=== PATIENT | female | born 1935 | race Caucasian/White ===

== ENCOUNTER 2016-05-02 07:19 | Emergency (ER) | payer MEDICARE, OTHER ==
[~2016-05-02] VITALS: Ht 160 cm; Wt 88.5 kg
[~2016-05-02 07:19] MED LIST: B COMPLEX; BENZ100C8 PO; CALC-793 PO; CALC-80; CALCIUM OTC; CARV3.122 PO; CARV6.252 PO; CIPR500T78 PO; CPR500T PO; CTLP20T PO; Calcium PO; DILT120C10 PO; DOCU100T7 PO; EST.625T PO; FERR-57 PO; FURO40TA4; FURO80TA PO; GFN600TCR PO; GLUCOSAMINE OTC PO; KCL20TCR PO; MECL12.579; MELA1TAB11 PO; MELO-170 PO; MESA800T PO; METR500T PO; MSL400TEC; NF-MAG64T PO; NIA500ERT PO; NIACIN; OMG1KC PO; OXYC10TA8 PO; PRD10T PO; PRD20T; PRESERVISION EYE VIT PO; RIVA20TA2 PO; SIMV20TA3; SIMV20TA3 PO; SLOMAG; SMV10T PO; VITA1CAP59 PO; WARF4TAB; [UNRECOGNIZED DRUG - OTHER]
--- OUTSIDE RECORDS SUMMARY | 2016-05-02 07:24 | XMS REPORT | Continuity of Care Document ---
Author Author [facility] Organization [facility] Address Unknown Phone Unavailable Care Team Providers Care Director Payer Name Role Phone Eez Siddiquien PCP [phone] Source Comments Some departments are not documenting in the electronic medical record. If you do not see the information that you expected, contact Release of Information in the Health Information Management department at [phone] for further assistance in locating additional records.[facility] Active Allergies and Adverse Reactions No Known Allergies Current Medications Prescription Sig. Disp. Refills Start End Date Status Date mesalamine(+) (ASACOL HD) Take 800 mg by mouth Active 800 mg tablet three times daily. citalopram (CELEXA) 20 mg Take 20 mg by mouth at Active tablet bedtime daily. estrogens, conjugated Take 0.625 mg by mouth Active (PREMARIN) 0.625 mg daily. tablet lutein 20 mg Tab Take by mouth. Active melatonin 3 mg Tab Take 3 mg by mouth at Active bedtime daily. vitamins, multiple cap Take 1 Cap by mouth Active daily. aspirin EC 81 mg tablet Take 81 mg by mouth three Active times daily. simvastatin (ZOCOR) 20 mg Take 1 Tab by mouth daily 90 Tab 01/03/20 Active tablet with dinner. 14 oxyCODONE SR (OXYCONTIN) Take 10 mg by mouth every Active 10 mg tablet 12 hours Magnesium 250 mg tab Take by mouth daily. Active guaiFENesin LA (MUCINEX) Take 600 mg by mouth at Active 600 mg tablet bedtime daily. vit Take 1 Tab by mouth twice Active C,K-Kk-bdvko-lutein-zeaxa daily. n (PRESERVISION AREDS 2) [phone] kw-zvia-tu-mg cap fish oil /omega-3 fatty Take 1 Cap by mouth twice Active acids (SEA-OMEGA) daily. 340/1000 mg capsule glucosamine(+) 500 mg tab Take 500 mg by mouth Active daily with breakfast. oxyCODONE (ROXICODONE) 5 Take 1 Tab by mouth every 30 Tab 0 01/20/20 Active mg tablet 4 hours as needed 14 docusate (COLACE) 100 mg Take 1 Cap by mouth twice 180 Cap 3 01/20/20 Active capsule daily. 14 spironolactone TAKE 1 TABLET BY MOUTH 90 Tab 0 09/07/19 Active (ALDACTONE) 25 mg tablet DAILY AFTER BREAKFAST 15 bisoprolol (ZEBETA) 5 mg TAKE 1 TABLET BY MOUTH 180 Tab 0 07/03/19 Active tablet EVERY 12 HOURS 16 Active Problems Problem Noted Date Thyroid goiter 01/18/2014 Multiple thyroid nodules 11/24/2013 SSS (sick sinus syndrome) ([facility]) 04/23/2013 Overview: 11/07/11 - PPM implant by Steven García at [facility] Cardiac pacemaker in situ 04/23/2013 Overview: 11/07/11 - MDT PPM Adapta SR ADSRO1; RV Lead 4076-58 Aortic regurgitation 04/18/2013 SDH (subdural hematoma) ([facility]) 01/10/2013 Adnexal mass 11/29/2012 Cardiomegaly 11/29/2012 Pacemaker 11/29/2012 Nocturnal hypoxia 11/29/2012 Chronic a-fib ([facility]) 11/29/2012 Ulcerative colitis ([facility]) 11/29/2012 Diverticulitis 11/29/2012 Macular degeneration 11/29/2012 Immunizations Name Dates Previously Given Next Due Flu Vaccine 01/19/2014 Quadrivalent=>3 Yo (Preservative Free) Flu Vaccine Trivalent=>3 01/13/2013 Yo (Preservative Free) Social History Tobacco Use Types Packs/Day Years Used Date Former Smoker Cigarettes 2 20 Quit: 04/06/1992 Smokeless Tobacco: Never Used Alcohol Use Drinks/Week oz/Week Comments No Last Filed Vital Signs Vital Sign Reading Time Taken Blood Pressure 128/82 01/27/2014 3:39 PM CDT Pulse 98 01/27/2014 3:39 PM CDT Temperature 36.3 C (97.3 F) 01/19/2014 11:47 AM CDT Respiratory Rate 16 01/02/2014 2:00 PM CDT Height 1.626 m (5' 4") 01/27/2014 3:39 PM CDT Weight 96.435 kg (212 lb 9.6 oz) 01/27/2014 3:39 PM CDT Body Mass Index 36.47 01/27/2014 3:39 PM CDT Oxygen Saturation 96% 01/19/2014 2:36 PM CDT Plan of Care Health Maintenance Due Date Last Done Comments Physical (Comprehensive) 1944 Exam Pertussis Vaccine 1948 Tetanus Vaccine 1954 Shingles Vaccine 1997 Osteoporosis Screening 2002 Prevnar/Pneumovax (#1) 2002 Influenza Vaccine 12/06/2015 01/19/2014, 01/13/2013 Results from Last 3 Months Not on file
[2016-05-02] MEDS ORDERED: fentaNYL INJECTION 100 MCG/2 ML AMP IVP STA (07:27)
--- NOTE | 2016-05-02 07:46 | ED Fall/Injury ---
General Chief Complaint: Trauma-Non Activation Stated Complaint: FALL Nursing Triage Note: PT TO [facility] WITH CC OF SAME LEVEL FALL THIS A.M. PT DENIES LOC, JUST TRIPPED AND FELL ON HER FACE, HAD A BLOODY NOSE ON EMS ARRIVAL, BLEEDING CONTROLLED ON ARRIVAL TO ER. PT STATES PAIN ALL OVER BUT THAT IS NORMAL, NO ABNORMAL PAIN. HX OF HEMORRAGIC STROKE SO FAMILY WANTED TO BE SURE PT WAS CHECKED OUT. BLOOD SUGAR WAS 120 BY EMS. Source: patient, EMS Exam Limitations: no limitations History of Present Illness Time seen by provider: 07:27 Initial Comments Here with report of fall this morning. Patient reports that she tripped over something. She is on oxygen and has quite a bit of tubing at the house per EMS. Patient fell and hit her for head and face on the ground. Denies other injury. She does have chronic all over body pain that she states is not worse and she is on pain meds for that. Patient did have a significant bloody nose earlier but has subsequently stopped. Denies nausea or vomiting. Denies loss of consciousness. Occurred: just prior to arrival, this morning Severity: moderate Injuries/Pain Location: head, face Loss of Consciousness: no loss of consciousness Associated Symptoms (Fall): No Abdominal Pain, No Chest Pain, No Confusion, No Muscle Spasms, No Nausea/Vomiting, No Neck Pain, No Slurred Speech, Other (back , hip and leg pain that are chronic and not new.) Allergies and Home Medications Allergies Coded Allergies: NKANo Known Allergies (Unverified Allergy, Mild, 05/29/09) Home Medications 1,000 MG PO BID (Reported) 1 TAB PO BID (Reported) Calcium/Vitamin D 1 Tab Tablet 600 MG PO BID (Reported) Carvedilol 3.125 Mg Tablet 1 EACH PO BID (Reported) Citalopram Hydrobromide 20 Mg Tablet 1 EACH PO DAILY (Reported) Ferrous Sulfate 325 Mg Tablet 325 MG PO BID (Reported) Magnesium Chloride 64 Mg Tablet.sa 64 MG PO DAILY (Reported) Meloxicam 7.5 Mg Tablet #30 1 EACH PO DAILY PRN PRN elbow swelling/pain Prescribed by: MINERVA OTOOLE on 05/05/14 2302 Mesalamine 800 Mg Tablet.dr 800 MG PO TID (Reported) [place] 3 Polyunsat Fatty Acids 1,000 Mg Cap 1,000 MG PO DAILY (Reported) Oxycodone Hcl 10 Mg Tab 10 MG PO BID (Reported) Potassium Chloride 20 Meq Tab 20 MEQ PO TID (Reported) Pyridoxine/Melatonin 1 Tab Tablet 3 MG PO HS (Reported) Simvastatin 20 Mg Tablet 20 MG PO HS (Reported) Constitutional: see HPINo chills, No fever Eyes: No Symptoms Reported Ears, Nose, Mouth, Throat: see HPIdenies ear pain, denies ear discharge, nose pain epistaxisdenies loose teeth, denies throat pain Respiratory: no symptoms reportedNo cough, No short of breath Cardiovascular: no symptoms reportedNo chest pain Gastrointestinal: No abdominal pain, No nausea, No vomiting Genitourinary: no symptoms reported Musculoskeletal: see HPI muscle pain muscle stiffness Skin: no symptoms reported Psychiatric/Neurological: Denies Anxiety, HeadacheDenies Weakness All Other Systems Reviewed Negative Unless Noted: Yes Past Wbkfbjq-Jwelnm-Zhmuhy Hx Patient Social History Alcohol Use: Denies Use Recreational Drug Use: No Smoking Status: Unknown if Ever Smoked Recent Foreign Travel: No Contact w/Someone Who Travel: No Recent Infectious Disease Expo: No Immunizations Up To Date Tetanus Booster (TDap): Unknown Date of Pneumonia Vaccine: May 07, 2009 Date of Influenza Vaccine: Jan 16, 2014 Seasonal Allergies Seasonal Allergies: Yes Surgeries HX Surgeries: Yes (BRAIN SURGERY,KNEE SURGERY, FOOT SURGERY ) Surgeries: Appendectomy, Hysterectomy, Neurological, Orthopedic, Pacemaker, Thyroidectomy Respiratory Hx Respiratory Disorders: Yes (HYPOXIA--WEARS O2 AT 2L/NC CONTINUOUSLY) Respiratory Disorders: Pneumonia Cardiovascular Hx Cardiac Disorders: Yes (PULMONARY HTN, PACEMAKER) Neurological Hx Neurological Disorders: Yes Neurological Disorders: Dementia Reproductive System Hx Reproductive Disorders: No DIRECT OF REAL ESTATE History: Hysterectomy Genitourinary Hx Genitourinary Disorders: No Gastrointestinal Hx Gastrointestinal Disorders: Yes Gastrointestinal Disorders: Colitis, Gastrointestinal Bleed, Diverticulosis Musculoskeletal Hx Musculoskeletal Disorders: Yes (CHRONIC NECK PAIN , SPINAL STENOSIS) Musculoskeletal Disorders: Arthritis, Chronic Back Pain Endocrine Hx Endocrine Disorders: No HEENT HX ENT Disorders: No Cancer Hx Cancer: No (BENIGN SKIN LESIONS) Psychosocial Hx Psychiatric Problems: No Integumentary HX Skin/Integumentary Disorder: Yes (BENIGN SKIN LESIONS) Blood Transfusions Hx Blood Disorders: No Reviewed Nursing Assessment Reviewed/Agree w Nursing PMH: Yes Family Medical History Significant Family History: No Pertinent Family Hx, Stroke Physical Exam Vital Signs Vital Sign - Last 12Hours 05/02/16 07:22 Temp 97.0 Pulse 87 Resp 16 B/P 130/71 Pulse Ox 98 O2 Delivery Room Air Capillary Refill : Less Than 3 Seconds General Appearance: WD/WN mild distress (all of her pain and headache) HEENT: PERRL/EOMI pharynx normal other (left eye with some discharge. Old blood within bilateral naris but no active bleeding. Swelling to the nose noted. Abrasions to the forehead, nose, face and chin.) Neck: non-tender full range of motion supple normal inspection Cardiovascular: regular rate, rhythm no murmur Respiratory: lungs clear normal breath sounds Gastrointestinal: non tender soft Back: normal inspection no CVA tenderness no vertebral tenderness Neurologic/Psychiatric: alert oriented x 3 Skin: normal color warm/dry [place] Coma Score Best Eye Response: (4) Open Spontaneously Best Verbal Response: (5) Oriented Best Motor Response: (6) Obeys Commands Laceration Repair : Suture Size: 4-0 Progress/Results/Core Measures Results/Orders Lab Results Laboratory Tests Test 05/02/16 07:50 Range/Units Alanine Aminotransferase (ALT/SGPT) 20 0-55 U/L Albumin 4.1 3.2-4.5 G/DL Alkaline Phosphatase 118 40-136 U/L Anion Gap 13 5-14 MMOL/L Aspartate Amino Transf (AST/SGOT) 47 H 5-34 U/L BUN/Creatinine Ratio 24 Basophils # (Auto) 0.0 0.0-0.1 10^3/uL Basophils (%) (Auto) 1 0-10 % Blood Urea Nitrogen 31 H 7-18 MG/DL Calcium Level 9.4 8.5-10.1 MG/DL Carbon Dioxide Level 25 21-32 MMOL/L Chloride Level 94 L 98-107 MMOL/L Creatinine 1.28 0.60-1.30 MG/DL Eosinophils # (Auto) 0.0 0.0-0.3 10^3/uL Eosinophils (%) (Auto) 0 0-10 % Estimat Glomerular Filtration Rate 40 Glucose Level 106 H 70-105 MG/DL Hematocrit 35 35-52 % Hemoglobin 11.6 11.5-16.0 G/DL Lymphocytes # (Auto) 0.8 L 1.0-4.0 X 10^3 Lymphocytes (%) (Auto) 15 12-44 % Mean Corpuscular Hemoglobin 32 25-34 PG Mean Corpuscular Hemoglobin Concent 33 32-36 G/DL Mean Corpuscular Volume 98 80-99 FL Mean Platelet Volume 11.6 H 7.4-10.4 FL Monocytes # (Auto) 0.7 0.0-1.0 X 10^3 Monocytes (%) (Auto) 15 H 0-12 % Neutrophils # (Auto) 3.4 1.8-7.8 X 10^3 Neutrophils (%) (Auto) 69 42-75 % Platelet Count 159 130-400 10^3/uL Potassium Level 4.6 3.6-5.0 MMOL/L Red Blood Count 3.58 L 4.35-5.85 10^6/uL Red Cell Distribution Width 12.9 10.0-14.5 % Sodium Level 132 L 135-145 MMOL/L Total Bilirubin 0.7 0.1-1.0 MG/DL Total Protein 7.6 6.4-8.2 G/DL White Blood Count 5.0 4.3-11.0 10^3/uL My Orders Orders-VERONICA SORIANO MD Ct Head/Face/Cervical Wo (05/02/16 07:27) Cbc With Automated Diff (05/02/16 07:27) Comprehensive Metabolic Panel (05/02/16 07:27) Fentanyl Injection (Sublimaze Injection (05/02/16 07:27) Saline Lock/Iv-Start (05/02/16 07:27) Ceftriaxone Injection (Rocephin Injectio (05/02/16 09:45) Tdap (Boostrix) Im (05/02/16 09:47) Vital Signs/I&O Vital Sign - Last 12Hours 05/02/16 07:22 Temp 97.0 Pulse 87 Resp 16 B/P 130/71 Pulse Ox 98 O2 Delivery Room Air Blood Pressure Mean: 90 Progress Note : Progress Note Seen and evaluated. CT head, face and neck ordered. Basic labs ordered. Fentanyl 75 g IV as patient has not had her 30 mg morphine sulfate ER this morning and she is in fair amount of pain. Monitor patient. 0933: CT results reviewed with patient and family. She's had multiple falls over the last 9 months and chronic subdural is probably from one of those falls although it does not appear to be new. We will update tetanus. I did discuss the nasal fracture maxillary sinus concerns. We'll give Rocephin 1 g IV here 1 and then continue outpatient antibiotics with amoxicillin. Patient family comfortable with plan. Discharged home with return precautions. Patient and family verbalize understanding instructions and agreement with plan. Diagnostic Imaging Diagonstic Imaging: CT Plain Films/CT/US/NM/MRI: facial bones, c-spine, head Comments [facility] [place], [place] NAME: ELSY ROSA [facility] REC#: [id number] PT STATUS: REG ER : 1935 PHYSICIAN: VERONICA SORIANO MD ADMIT DATE: 05/02/16/ER Draft Date of Exam:05/02/16 CT HEAD/FACE/CERVICAL WO PROCEDURE: CT head, face, and cervical spine without contrast. TECHNIQUE: Multiple contiguous axial images were obtained through the head, neck, and facial bones without the use of intravenous contrast. Sagittal and coronal reformations through the cervical spine and facial bones were also performed. INDICATION: Fall. Face injury. COMPARISON: CT head and cervical spine without contrast 09/24/2015. FINDINGS: CT HEAD: There is a new low-attenuation extra-axial fluid collection overlying the right frontal lobe and measuring up to 9 mm in maximum radial diameter. No other evidence of intracranial hemorrhage, mass effect or hydrocephalus. Postoperative findings of a left frontotemporal craniotomy and stable underlying encephalomalacia in the left temporal lobe. No CT evidence of acute infarction. Mildly displaced right nasal bone fracture. Osseous structures are otherwise intact. Moderate mucosal thickening in the ethmoid and maxillary sinuses. There is a small air-fluid level in the left maxillary sinus. CT CERVICAL SPINE: Grade 1 anterolisthesis of C6 on C7. Alignment is otherwise normal. Vertebral body heights are maintained. No fractures. Moderate degenerative endplate changes throughout the cervical spine. Diffuse moderate to advanced bilateral facet arthropathy. Spondylotic changes result in no high-grade spinal canal narrowing on this noncontrast exam. Scattered mild to moderate neural foraminal narrowing. Right thyroidectomy. Several low-attenuation nodules in the right thyroid measuring up to 1.8 cm. Mild arterial calcifications. IMPRESSION: 1. Chronic appearing subdural hematoma overlying the right frontal lobe measures up to 9 mm in maximum dimension. This is new since 09/24/2015. 2. Mildly displaced right nasal bone fracture. No other acute fractures identified in the head, face or cervical spine. 3. Paranasal sinus disease affecting the maxillary and ethmoid sinuses with a small air-fluid level in the left maxillary sinus. Dictated on workstation # [id number] Dict: 05/02/16901 Trans: 05/02/16921 [id number] Interpreted by: ABBY HIGHTOWER MD Electronically signed by: Reviewed: Reviewed by Me Departure Impression Impression: Primary Impression: Nasal bone fracture Qualified Code: S02.2XXA - Fracture of nasal bones, initial encounter for closed fracture Additional Impressions: Facial abrasion Qualified Code: S00.81XA - Abrasion of other part of head, initial encounter Chronic subdural hematoma Facial contusion Qualified Code: S00.83XA - Contusion of other part of head, initial encounter Disposition: 01 HOME, SELF-CARE Condition: Stable Departure-Patient Inst. Decision time for Depature: 09:45 Referrals: MINERVA NEAL DO (PCP/Family) Primary Care Physician Patient Instructions: Minor Head Injury (DC), Nose Fracture (DC), Skin Abrasions (DC), Subdural Hematoma (DC) Add. Discharge Instructions: All discharge instructions reviewed with patient and/or family. Voiced understanding. Take medications as directed. Follow-up with Dr. Heard within one week for recheck and further evaluation. Call his office for appointment. You need to be very careful with movements and protect against falls. You do have a chronic area of bleeding in the head that is not actively bleeding now. Follow- up with your doctor within one week for recheck and further evaluation. Return for worse pain, fever, vomiting, weakness, breathing problems or other concerns as needed. Scripts Amoxicillin 500 Mg [id number] Mg PO TID #21 CAP Prov:VERONICA SORIANO MD 05/02/16 VERONICA SORIANO MD May 02, 2016 07:45
[2016-05-02 08:17] LABS: BASOPHILS % (AUTO) 1 % (0-10); EOSINOPHILS % (AUTO) 0 % (0-10); LYMPHOCYTES # (AUTO) 0.8 X 10^3 (1.0-4.0); LYMPHOCYTES % (AUTO) 15 % (12-44); MEAN CORPUSCULAR HEMOGLOBIN 32 PG (25-34); MEAN CORPUSCULAR HGB CONC 33 G/DL (32-36); MEAN CORPUSCULAR VOLUME 98 FL (80-99); MEAN PLATELET VOLUME 11.6 FL (7.4-10.4); MONOCYTES # (AUTO) 0.7 X 10^3 (0.0-1.0); MONOCYTES % (AUTO) 15 % (0-12); NEUTROPHILS # (AUTO) 3.4 X 10^3 (1.8-7.8); NEUTROPHILS % (AUTO) 69 % (42-75); PLATELET COUNT 159 10^3/uL (130-400); RED BLOOD COUNT 3.58 10^6/uL (4.35-5.85); RED CELL DISTRIBUTION WIDTH 12.9 % (10.0-14.5)
[2016-05-02 08:36] LABS: ALBUMIN 4.1 G/DL (3.2-4.5); BILIRUBIN,TOTAL 0.7 MG/DL (0.1-1.0); CALCIUM 9.4 MG/DL (8.5-10.1); CREATININE SERUM 1.28 MG/DL (0.60-1.30); POTASSIUM 4.6 MMOL/L (3.6-5.0); TOTAL PROTEIN 7.6 G/DL (6.4-8.2)
--- NOTE | 2016-05-02 09:22 | Diagnostic Imaging Report ---
PROCEDURE: CT head, face, and cervical spine without contrast. TECHNIQUE: Multiple contiguous axial images were obtained through the head, neck, and facial bones without the use of intravenous contrast. Sagittal and coronal reformations through the cervical spine and facial bones were also performed. INDICATION: Fall. Face injury. COMPARISON: CT head and cervical spine without contrast 09/24/2015. FINDINGS: CT HEAD: There is a new low-attenuation extra-axial fluid collection overlying the right frontal lobe and measuring up to 9 mm in maximum radial diameter. No other evidence of intracranial hemorrhage, mass effect or hydrocephalus. Postoperative findings of a left frontotemporal craniotomy and stable underlying encephalomalacia in the left temporal lobe. No CT evidence of acute infarction. Mildly displaced right nasal bone fracture. Osseous structures are otherwise intact. Moderate mucosal thickening in the ethmoid and maxillary sinuses. There is a small air-fluid level in the left maxillary sinus. CT CERVICAL SPINE: Grade 1 anterolisthesis of C6 on C7. Alignment is otherwise normal. Vertebral body heights are maintained. No fractures. Moderate degenerative endplate changes throughout the cervical spine. Diffuse moderate to advanced bilateral facet arthropathy. Spondylotic changes result in no high-grade spinal canal narrowing on this noncontrast exam. Scattered mild to moderate neural foraminal narrowing. Right thyroidectomy. Several low-attenuation nodules in the right thyroid measuring up to 1.8 cm. Mild arterial calcifications. IMPRESSION: 1. Chronic appearing subdural hematoma overlying the right frontal lobe measures up to 9 mm in maximum dimension. This is new since 09/24/2015. 2. Mildly displaced right nasal bone fracture. No other acute fractures identified in the head, face or cervical spine. 3. Paranasal sinus disease affecting the maxillary and ethmoid sinuses with a small air-fluid level in the left maxillary sinus. Dictated by: Dictated on workstation # [id number]
[2016-05-02] MEDS ORDERED: cefTRIAXone INJECTION 1,000 MG in NORMAL SALINE (BAXTER MINI) 50 ML IV ONE (09:45)
[2016-05-02] MEDS ORDERED: TETANUS,DIPTH,PERTUSS P/F (BOOSTRIX) 0.5 ML VIAL IM STA (09:47)
[2016-05-02] MEDS ORDERED: AMOX500C2 PO (09:48)
[2016-05-02 11:11] VITALS: BP 100/56
== END 2016-05-02 11:11 | disposition home or self-care (01) ==
LOC: EDUNIT# 07:19 → ER 07:20
DX: S02.2XXA Fracture of nasal bones, initial encounter for closed fracture (principal); S06.5X0D Traumatic subdural hemorrhage without loss of consciousness, subsequent encounter; S00.81XA Abrasion of other part of head, initial encounter; J01.80 Other acute sinusitis; Z23 Encounter for immunization; R29.6 Repeated falls; Z79.899 Other long term (current) drug therapy; Z99.81 Dependence on supplemental oxygen; W01.0XXA Fall on same level from slipping, tripping and stumbling without subsequent striking against object, initial encounter; Y92.009 Unspecified place in unspecified non-institutional (private) residence as the place of occurrence of the external cause; Y99.8 Other external cause status
CPT/HCPCS: 36415; 70450; 70486; 72125; 80053; 85025; 90471; 90715; 96365; 96375

== ENCOUNTER 2016-05-03 20:55 | Emergency (ER) | payer MEDICARE, OTHER ==
[~2016-05-03] VITALS: Ht 162.6 cm; Wt 81.6 kg
[~2016-05-03 20:55] MED LIST changes: +AMOX500C2 PO
--- OUTSIDE RECORDS SUMMARY | 2016-05-03 21:00 | XMS REPORT | Continuity of Care Document ---
Author Author [facility] Organization [facility] Address Unknown Phone Unavailable Care Team Providers Care Reservoir Engineering Advisor Name Role Phone Eze Siddiquien PCP [phone] Source Comments Some departments are not documenting in the electronic medical record. If you do not see the information that you expected, contact Release of Information in the Health Information Management department at [phone] for further assistance in locating additional records.[facility] Active Allergies and Adverse Reactions No [...] Take 1 Tab by mouth twice Active C,Q-Ta-gibtf-lutein-zeaxa daily. n (PRESERVISION AREDS 2) [phone] rc-ncxc-jo-mg cap fish oil /omega-3 fatty Take 1 [...] thyroid nodules 11/24/2013 SSS (sick sinus syndrome) ([facility]) 04/23/2013 Overview: 11/07/11 - PPM implant by Steven García at [facility] Cardiac pacemaker in situ 04/23/2013 Overview: 11/07/11 - MDT PPM Adapta SR ADSRO1; RV Lead 4076-58 Aortic regurgitation 04/18/2013 SDH (subdural hematoma) ([facility]) 01/10/2013 Adnexal mass 11/29/2012 Cardiomegaly 11/29/2012 Pacemaker 11/29/2012 Nocturnal hypoxia 11/29/2012 Chronic a-fib ([facility]) 11/29/2012 Ulcerative colitis ([facility]) 11/29/2012 Diverticulitis 11/29/2012 Macular degeneration 11/29/2012 Immunizations [...]
[2016-05-03 21:25] LABS: BASOPHILS % (AUTO) 1 % (0-10); EOSINOPHILS % (AUTO) 0 % (0-10); LYMPHOCYTES # (AUTO) 0.7 X 10^3 (1.0-4.0); LYMPHOCYTES % (AUTO) 15 % (12-44); MEAN CORPUSCULAR HEMOGLOBIN 33 PG (25-34); MEAN CORPUSCULAR HGB CONC 33 G/DL (32-36); MEAN CORPUSCULAR VOLUME 99 FL (80-99); MEAN PLATELET VOLUME 10.8 FL (7.4-10.4); MONOCYTES # (AUTO) 0.6 X 10^3 (0.0-1.0); MONOCYTES % (AUTO) 13 % (0-12); NEUTROPHILS # (AUTO) 3.4 X 10^3 (1.8-7.8); NEUTROPHILS % (AUTO) 72 % (42-75); PLATELET COUNT 144 10^3/uL (130-400); RED BLOOD COUNT 3.45 10^6/uL (4.35-5.85); RED CELL DISTRIBUTION WIDTH 13.1 % (10.0-14.5); WHITE BLOOD COUNT 4.7 10^3/uL (4.3-11.0)
--- NOTE | 2016-05-03 21:26 | ED Cough/URI ---
General Chief Complaint: Coughing up blood Stated Complaint: COUGHING UP BLOOD FROM BROKEN NOSE Nursing Triage Note: patient reports recently falling and being diagnosed with a broken nose. patient reports this evening she coughed up some blood Source: patient Exam Limitations: no limitations History of Present Illness Time seen by provider: 21:25 Initial Comments to ER with reports of epistaxis. 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 She was discharged home. She does wear oxygen wizycy-rym-xzchp for COPD. Only anticoagulant is aspirin. She presents today with recurrent epistaxis that resolved just before arrival to ER. No headache or altered mental status Timing/Duration: just prior to arrival Severity/Quality: moderate Associated Symptoms: denies symptoms Allergies and Home Medications Allergies Coded Allergies: NKANo Known Allergies (Unverified Allergy, Mild, 05/29/09) Home Medications 1,000 MG PO BID (Reported) 1 TAB PO BID (Reported) Amoxicillin 500 Mg Capsule #21 500 MG PO TID Prescribed by: VERONICA SORIANO on 05/02/16 0948 Calcium/Vitamin D 1 Tab Tablet 600 MG PO BID (Reported) Carvedilol 3.125 Mg Tablet 1 EACH PO BID (Reported) Citalopram Hydrobromide 20 Mg Tablet 1 EACH PO DAILY (Reported) Ferrous Sulfate 325 Mg Tablet 325 MG PO BID (Reported) Magnesium Chloride 64 Mg Tablet.sa 64 MG PO DAILY (Reported) Meloxicam 7.5 Mg Tablet #30 1 EACH PO DAILY PRN PRN elbow swelling/pain Prescribed by: MINERVA OTOOLE on 05/05/14 2302 Mesalamine 800 Mg Tablet.dr 800 MG PO TID (Reported) [place] 3 Polyunsat Fatty Acids 1,000 Mg Cap 1,000 MG PO DAILY (Reported) Oxycodone Hcl 10 Mg Tab 10 MG PO BID (Reported) Potassium Chloride 20 Meq Tab 20 MEQ PO TID (Reported) Pyridoxine/Melatonin 1 Tab Tablet 3 MG PO HS (Reported) Simvastatin 20 Mg Tablet 20 MG PO HS (Reported) Constitutional: see HPI EENTM: epistaxis see HPI Respiratory: no symptoms reported Cardiovascular: no symptoms reported Genitourinary: no symptoms reported Musculoskeletal: no symptoms reported Skin: no symptoms reported Psychiatric/Neurological: No Symptoms Reported Hematologic/Lymphatic: No Symptoms Reported Past Zdogfde-Tltvoy-Xqzrwz Hx Patient Social History Alcohol Use: Denies Use Recreational Drug Use: No Smoking Status: Former Smoker Type Used: Cigarettes Recent Foreign Travel: No Contact w/Someone Who Travel: No Recent Infectious Disease Expo: No Recent Hopitalizations: Yes Physical Abuse Screen: No Sexual Abuse: No Immunizations Up To Date Tetanus Booster (TDap): Unknown Date of Pneumonia Vaccine: May 07, 2009 Date of Influenza Vaccine: Jan 16, 2014 Seasonal Allergies Seasonal Allergies: Yes Surgeries HX Surgeries: Yes (BRAIN SURGERY,KNEE SURGERY, FOOT SURGERY ) Surgeries: Appendectomy, Hysterectomy, Neurological, Orthopedic, Pacemaker, Thyroidectomy Respiratory Hx Respiratory Disorders: Yes (HYPOXIA--WEARS O2 AT 2L/NC CONTINUOUSLY) Respiratory Disorders: Pneumonia Cardiovascular Hx Cardiac Disorders: Yes (PULMONARY HTN, PACEMAKER) Neurological Hx Neurological Disorders: Yes Neurological Disorders: Dementia Reproductive System Hx Reproductive Disorders: No 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 Genitourinary Hx Genitourinary Disorders: No Gastrointestinal Hx Gastrointestinal Disorders: Yes Gastrointestinal Disorders: Colitis, Gastrointestinal Bleed, Diverticulosis Musculoskeletal Hx Musculoskeletal Disorders: Yes (CHRONIC NECK PAIN , SPINAL STENOSIS) Musculoskeletal Disorders: Arthritis, Chronic Back Pain Endocrine Hx Endocrine Disorders: No HEENT HX ENT Disorders: No Cancer Hx Cancer: No (BENIGN SKIN LESIONS) Psychosocial Hx Psychiatric Problems: No Integumentary HX Skin/Integumentary Disorder: Yes (BENIGN SKIN LESIONS) Blood Transfusions Hx Blood Disorders: No Family Medical History Significant Family History: No Pertinent Family Hx, Stroke Physical Exam Vital Signs Vital Sign - Last 12Hours 05/03/16 21:01 Temp 98.4 Pulse 81 Resp 16 B/P 122/77 Pulse Ox 95 O2 Delivery Nasal Cannula O2 Flow Rate 2 Capillary Refill : Less Than 3 Seconds General Appearance: WD/WN no apparent distress Eyes: Bilateral Eye EOMI, Bilateral Eye Normal Inspection, Bilateral Eye PERRL HEENT: PERRL/EOMI normal ENT inspection other (swelling to the left Nare with dried blood noted. Right nares clear. No blood in the oropharynx. She states she vomited blood up earlier, not coughed up blood.) Neck: non-tender full range of motion Respiratory: normal breath sounds no respiratory distress no accessory muscle use Gastrointestinal: normal bowel sounds non tender soft Extremities: normal range of motion non-tender Neurologic/Psychiatric: alert normal mood/affect oriented x 3 Skin: normal color warm/dry Laceration Repair : Suture Size: 4-0 Progress/Results/Core Measures Results/Orders Lab Results Laboratory Tests Test 05/03/16 21:20 Range/Units Activated Partial Thromboplast Time 32 24-35 SEC Alanine Aminotransferase (ALT/SGPT) 20 0-55 U/L Albumin 3.8 3.2-4.5 G/DL Alkaline Phosphatase 119 40-136 U/L Anion Gap 13 5-14 MMOL/L Aspartate Amino Transf (AST/SGOT) 46 H 5-34 U/L BUN/Creatinine Ratio 26 Basophils # (Auto) 0.0 0.0-0.1 10^3/uL Basophils (%) (Auto) 1 0-10 % Blood Urea Nitrogen 31 H 7-18 MG/DL Calcium Level 8.8 8.5-10.1 MG/DL Carbon Dioxide Level 24 21-32 MMOL/L Chloride Level 98 98-107 MMOL/L Creatinine 1.21 0.60-1.30 MG/DL Eosinophils # (Auto) 0.0 0.0-0.3 10^3/uL Eosinophils (%) (Auto) 0 0-10 % Estimat Glomerular Filtration Rate 43 Glucose Level 133 H 70-105 MG/DL Hematocrit 34 L 35-52 % Hemoglobin 11.2 L 11.5-16.0 G/DL INR Comment 1.3 0.8-1.4 Lymphocytes # (Auto) 0.7 L 1.0-4.0 X 10^3 Lymphocytes (%) (Auto) 15 12-44 % Mean Corpuscular Hemoglobin 33 25-34 PG Mean Corpuscular Hemoglobin Concent 33 32-36 G/DL Mean Corpuscular Volume 99 80-99 FL Mean Platelet Volume 10.8 H 7.4-10.4 FL Monocytes # (Auto) 0.6 0.0-1.0 X 10^3 Monocytes (%) (Auto) 13 H 0-12 % Neutrophils # (Auto) 3.4 1.8-7.8 X 10^3 Neutrophils (%) (Auto) 72 42-75 % Platelet Count 144 130-400 10^3/uL Potassium Level 4.3 3.6-5.0 MMOL/L Prothrombin Time 16.0 H 12.2-14.7 SEC Red Blood Count 3.45 L 4.35-5.85 10^6/uL Red Cell Distribution Width 13.1 10.0-14.5 % Sodium Level 135 135-145 MMOL/L Total Bilirubin 0.6 0.1-1.0 MG/DL Total Protein 7.0 6.4-8.2 G/DL White Blood Count 4.7 4.3-11.0 10^3/uL Vital Signs/I&O Vital Sign - Last 12Hours 05/03/16 21:01 Temp 98.4 Pulse 81 Resp 16 B/P 122/77 Pulse Ox 95 O2 Delivery Nasal Cannula O2 Flow Rate 2 Blood Pressure Mean: 92 Departure Impression Impression: Primary Impression: Epistaxis Additional Impression: Nasal bone fracture Qualified Code: S02.2XXA - Fracture of nasal bones, initial encounter for closed fracture Disposition: HOME, SELF-CARE Condition: Stable Departure-Patient Inst. Decision time for Depature: 22:10 Referrals: MINERVA NEAL DO (PCP/Family) Primary Care Physician Patient Instructions: Nosebleeds Add. Discharge Instructions: 1. Return to ER for any concerns 2. Follow-up with your doctor next week 3. All discharge instructions reviewed with patient and/or family. Voiced understanding. NEGAR JOHNSON APRN May 03, 2016 21:26
[2016-05-03 21:34] LABS: INR 1.3 (0.8-1.4)
[2016-05-03 21:53] LABS: CREATININE SERUM 1.21 MG/DL (0.60-1.30); POTASSIUM 4.3 MMOL/L (3.6-5.0)
[2016-05-03 21:54] LABS: ALBUMIN 3.8 G/DL (3.2-4.5); BILIRUBIN,TOTAL 0.6 MG/DL (0.1-1.0); CALCIUM 8.8 MG/DL (8.5-10.1)
[2016-05-03 22:17] VITALS: BP 120/66
--- NOTE | 2016-05-03 22:53 | Diagnostic Imaging Report ---
INDICATION: Coughing up blood COMPARISON: September 24, 2015 TECHNIQUE: 2 radiographs of the chest dated May 03, 2016. FINDINGS: Pacer device is again identified with a battery pack overlying left chest. The cardiac silhouette is moderately enlarged, likely stable given differences in positioning. No significant pulmonary vascular congestion. The lungs are grossly clear of focal pulmonary opacity. No significant pleural effusion. No pneumothorax. Anterior wedge deformity is identified within the lower thoracic spine. Exact chronicity is uncertain, though this appears new since January 2014. Scattered osseous degenerative changes. IMPRESSION: Moderate wedge deformity within the lower thoracic spine. This is of uncertain chronicity, though does appear new since 2013. Recommend clinical correlation for focal pain at this location. If there is concern for this region, a CT of the thoracic spine could be obtained. Cardiomegaly without overt congestive heart failure. Dictated by: Dictated on workstation # [id number]
== END 2016-05-03 22:17 | disposition home or self-care (01) ==
LOC: EDUNIT# 20:55 → ER 20:56
DX: R04.0 Epistaxis (principal); S02.2XXA Fracture of nasal bones, initial encounter for closed fracture; Z87.891 Personal history of nicotine dependence; Z79.899 Other long term (current) drug therapy; Z95.0 Presence of cardiac pacemaker; Z99.81 Dependence on supplemental oxygen; W01.0XXA Fall on same level from slipping, tripping and stumbling without subsequent striking against object, initial encounter; Y92.009 Unspecified place in unspecified non-institutional (private) residence as the place of occurrence of the external cause; Y99.8 Other external cause status
CPT/HCPCS: 36415; 71020; 80053; 85025; 85610; 85730

== ENCOUNTER 2016-05-26 14:27 | Emergency (ER) | payer MEDICARE, OTHER ==
[~2016-05-26] VITALS: Ht 167.6 cm; Wt 72.6 kg
--- OUTSIDE RECORDS SUMMARY | 2016-05-26 14:33 | XMS REPORT | Continuity of Care Document ---
Author Author [facility] Organization [facility] Address Unknown Phone Unavailable Care Team Providers Care Senior Systems Developer Name Role Phone Eze Siddiquien PCP [phone] Source Comments Some departments are not documenting in the electronic medical record. If you do not see the information that you expected, contact Release of Information in the Health Information Management department at [phone] for further assistance in locating additional records.[facility] Active Allergies and Adverse Reactions No [...] Take 1 Tab by mouth twice Active C,E-Ru-pxwvp-lutein-zeaxa daily. n ([employer]ERV[employer] AREDS 2) 861-220-22-1 ju-phrl-mh-mg cap fish oil /omega-3 fatty Take 1 [...] thyroid nodules 11/24/2013 SSS (sick sinus syndrome) ([facility]) 04/23/2013 Overview: 11/07/11 - PPM implant by Steven García at [facility] Cardiac pacemaker in situ 04/23/2013 Overview: 11/07/11 - MDT PPM Adapta SR [id number]; RV Lead [id number] Aortic regurgitation 04/18/2013 SDH (subdural hematoma) ([facility]) 01/10/2013 Adnexal mass 11/29/2012 Cardiomegaly 11/29/2012 Pacemaker 11/29/2012 Nocturnal hypoxia 11/29/2012 Chronic a-fib ([facility]) 11/29/2012 Ulcerative colitis ([facility]) 11/29/2012 Diverticulitis 11/29/2012 Macular degeneration 11/29/2012 Immunizations [...]
[2016-05-26 15:03] LABS: BASOPHILS % (AUTO) 0 % (0-10); EOSINOPHILS % (AUTO) 0 % (0-10); LYMPHOCYTES # (AUTO) 0.5 X 10^3 (1.0-4.0); LYMPHOCYTES % (AUTO) 12 % (12-44); MEAN CORPUSCULAR HEMOGLOBIN 32 PG (25-34); MEAN CORPUSCULAR HGB CONC 33 G/DL (32-36); MEAN CORPUSCULAR VOLUME 97 FL (80-99); MEAN PLATELET VOLUME 10.9 FL (7.4-10.4); MONOCYTES # (AUTO) 0.6 X 10^3 (0.0-1.0); MONOCYTES % (AUTO) 14 % (0-12); NEUTROPHILS # (AUTO) 3.3 X 10^3 (1.8-7.8); NEUTROPHILS % (AUTO) 73 % (42-75); PLATELET COUNT 127 10^3/uL (130-400); RED BLOOD COUNT 3.66 10^6/uL (4.35-5.85); RED CELL DISTRIBUTION WIDTH 13.2 % (10.0-14.5); WHITE BLOOD COUNT 4.5 10^3/uL (4.3-11.0)
[2016-05-26 15:14] LABS: INR 1.3 (0.8-1.4); PROTHROMBIN TIME PATIENT 15.7 SEC (12.2-14.7)
[2016-05-26 15:21] LABS: ALANINE AMINOTRANSFERASE 19 U/L (0-55); ALBUMIN 3.8 G/DL (3.2-4.5); ANION GAP 13 MMOL/L (5-14); ASPARTATE AMINO TRANSFERASE 43 U/L (5-34); BILIRUBIN,TOTAL 0.7 MG/DL (0.1-1.0); BLOOD UREA NITROGEN 36 MG/DL (7-18); BUN/CREATININE RATIO 33; CARBON DIOXIDE 25 MMOL/L (21-32); CHLORIDE 96 MMOL/L (98-107); CREATINE KINASE 95 U/L (29-168); CREATININE SERUM 1.08 MG/DL (0.60-1.30); GFR ESTIMATED 49; GLUCOSE 97 MG/DL (70-105); MAGNESIUM 2.4 MG/DL (1.8-2.4); POTASSIUM 4.1 MMOL/L (3.6-5.0); SODIUM 134 MMOL/L (135-145); TOTAL PROTEIN 7.1 G/DL (6.4-8.2)
--- NOTE | 2016-05-26 15:24 | Diagnostic Imaging Report ---
PROCEDURE: CT head without contrast. TECHNIQUE: Multiple contiguous axial images were obtained through the brain without the use of intravenous contrast. INDICATION: Lethargy. Comparison made with prior examination of 05/02/2016. FINDINGS: There is prominence of the ventricles and sulci. There is no hydrocephalus or cerebral edema. There is no midline shift or mass-effect. There is no intracranial mass, hemorrhage, or extra-axial fluid collection. There is some diffuse decreased attenuation of the periventricular white matter which is nonspecific. The visualized paranasal sinuses and mastoid air cells are clear. There are no regional areas of decreased attenuation appreciated to suggest an acute CVA. IMPRESSION: 1. No acute intracranial process. 2. Age-appropriate atrophy. 3. Decreased attenuation of the periventricular white matter which is nonspecific, however, likely reflects senescent change and/or chronic small vessel ischemic disease. Dictated by: Dictated on workstation # [id number]
[2016-05-26 15:40] LABS: TROPONIN I < 0.30 NG/ML (<0.30)
[2016-05-26 16:30] LABS: BILIRUBIN,URINE NEGATIVE (NEGATIVE); KETONES,URINE NEGATIVE (NEGATIVE); LEUKOCYTE ESTERASE ,URINE NEGATIVE (NEGATIVE); NITRITE,URINE NEGATIVE (NEGATIVE); PH,URINE 6 (5-9); PROTEIN,URINE NEGATIVE (NEGATIVE); UROBILINOGEN,URINE NORMAL (NORMAL)
[2016-05-26 16:48] LABS: HYALINE CASTS, URINE RARE /LPF; SQUAMOUS EPITHELIAL CELL,UR 0-2 /HPF
--- NOTE | 2016-05-26 16:48 | Diagnostic Imaging Report ---
INDICATION: Altered mental status and fall. Frontal chest obtained at 4:32 p.m. FINDINGS: There is cardiomegaly. Pacemaker device is unchanged. There is mild central vascular congestion. There is no definite consolidation or pneumothorax or pleural fluid. The study is limited by poor inspiration. IMPRESSION: Cardiomegaly. Poor inspiration but no definite consolidation or pleural fluid. There is central vascular congestion. Dictated by: Dictated on workstation # [id number]
--- NOTE | 2016-05-26 17:10 | ED General ---
General Chief Complaint: Trauma-Non Activation Stated Complaint: AMS/LETHARGIC FALL Nursing Triage Note: PT ARRIVED PER EMS, PT FAMILY CALLED STATES FELL TODAY, PT CO OF R FOOT PAIN ONLY. PT HAS BLACK EYES FROM FALL IN APRIL, PT IS ALERT FOR STAFF. PT HAS WEAKNESS. SL IN L AC BY EMS, PT FSBS FOR EMS 117. PT ANSWERING QUESTIONS APPROPRIATELY AT THIS X. PT L CALF AREA VERY SWOLLEN Nursing Sepsis Screen: No Definite Risk Source of Information: Patient (LIMITED HISTORIAN), Family, Old Records History of Present Illness Time Seen by Provider: 14:25 Initial Comments PT ARRIVES VIA EMS FROM HOME FAMILY CALLED EMS SO PT COULD BE ADMITTED TO THE HOSPITAL FOR 3 DAYS AND THEN ADMITTED TO HALF-WAY, THEY DO NOT FEEL THEY CAN CONTINUE TO CARE FOR HER. PT LIVES WITH DAUGHTER AND HAS HAD 24 HOUR CAREGIVER IN HOME WELL FOR QUITE SOME TIME. PT HAS BEEN ESSENTIALLY NON-MOBILE FOR A VERY LONG TIME--ONLY MOBILITY HAS BEEN WITH [employer]. FAMILY STATES THEY HAVE NOT DISCUSSED THIS WITH HER PCP, DR. NEAL PT "FELL" TODAY--WENT FROM A STANDING POSITION TO A SITTING POSITION--NO INJURY PT FELL IN APRIL 06 AND HAS RESOLVING BRUISING TO HER FACE FROM THAT INCIDENT--HAD A NASAL FRACTURE PT HAS NO COMPLAINTS OTHER THAN SHE "HURTS ALL OVER" WHICH IS NORMAL FOR PT -- PT IS ON MORPHINE DAILY FOR CHRONIC PAIN COMPLAINTS PT CHRONICALLY LEANS TO THE RIGHT. PT HAS NO OTHER COMPLAINTS NO VOMITING OR DIARRHEA NO COUGH OR FEVER NO HEADACHE NO CHEST PAIN OR SHORTNESS OF BREATH. PT WITH DX OF DEMENTIA, BUT IS ABLE TO ANSWER ALL QUESTIONS APPROPRIATELY. Location Injury Occurred: HOME PCP: DR. NEAL Allergies and Home Medications Allergies Coded Allergies: NKANo Known Allergies (Unverified Allergy, Mild, 05/29/09) Home Medications 1,000 MG PO BID (Reported) 1 TAB PO BID (Reported) Amoxicillin 500 Mg Capsule #21 500 MG PO TID Prescribed by: VERONICA SORIANO on 05/02/16 0948 Calcium/Vitamin D 1 Tab Tablet 600 MG PO BID (Reported) Carvedilol 3.125 Mg Tablet 1 EACH PO BID (Reported) Citalopram Hydrobromide 20 Mg Tablet 1 EACH PO DAILY (Reported) Ferrous Sulfate 325 Mg Tablet 325 MG PO BID (Reported) Magnesium Chloride 64 Mg Tablet.sa 64 MG PO DAILY (Reported) Meloxicam 7.5 Mg Tablet #30 1 EACH PO DAILY PRN PRN elbow swelling/pain Prescribed by: MINERVA OTOOLE on 05/05/142301 Mesalamine 800 Mg Tablet.dr 800 MG PO TID (Reported) [place] 3 Polyunsat Fatty Acids 1,000 Mg Cap 1,000 MG PO DAILY (Reported) Oxycodone Hcl 10 Mg Tab 10 MG PO BID (Reported) Potassium Chloride 20 Meq Tab 20 MEQ PO TID (Reported) Pyridoxine/Melatonin 1 Tab Tablet 3 MG PO HS (Reported) Simvastatin 20 Mg Tablet 20 MG PO HS (Reported) Constitutional: No fever, weakness (IS CHRONIC/ ONGOING PROBLEM) EENTM: no symptoms reported Respiratory: no symptoms reported Cardiovascular: no symptoms reported Gastrointestinal: no symptoms reported Genitourinary: no symptoms reported Musculoskeletal: no symptoms reported Skin: no symptoms reported Psychiatric/Neurological: No Symptoms ReportedDenies Headache, Denies Numbness , Denies Paresthesia, Denies Seizure, Denies Tingling, Denies Tremors, Denies Weakness Hematologic/Lymphatic: No Symptoms Reported Immunological/Allergic: no symptoms reported Past Hslqblb-Jelisw-Nyukwv Hx Patient Social History Alcohol Use: Denies Use Recreational Drug Use: No Smoking Status: Former Smoker Type Used: Cigarettes Recent Foreign Travel: No Contact w/Someone Who Travel: No Recent Infectious Disease Expo: No Recent Hopitalizations: No Immunizations Up To Date Tetanus Booster (TDap): Unknown Date of Pneumonia Vaccine: May 07, 2009 Date of Influenza Vaccine: Jan 16, 2014 Seasonal Allergies Seasonal Allergies: Yes Surgeries HX Surgeries: Yes (BRAIN SURGERY,KNEE SURGERY, FOOT SURGERY ; HYST/BSO) Surgeries: Appendectomy, Hysterectomy, Neurological, Oophorectomy, Orthopedic, Pacemaker, Thyroidectomy Respiratory Hx Respiratory Disorders: Yes (HYPOXIA--WEARS O2 AT 2-3L/NC CONTINUOUSLY) Respiratory Disorders: Pneumonia Cardiovascular Hx Cardiac Disorders: Yes (PULMONARY HTN, PACEMAKER) Cardiac Disorders: Atrial Fibrillation, Chronic Edema/Swelling, High Cholesterol, Hypertension Neurological Hx Neurological Disorders: Yes (HX OF INTRACRANIAL BLEED) Neurological Disorders: Dementia, Stroke Reproductive System Hx 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 ) Gastrointestinal Disorders: Colitis, Gastrointestinal Bleed, Diverticulosis Musculoskeletal Hx Musculoskeletal Disorders: Yes (CHRONIC NECK PAIN , SPINAL STENOSIS; OELCRANON BURSITIS) Musculoskeletal Disorders: Osteoporosis, Arthritis, Chronic Back Pain Endocrine Hx Endocrine Disorders: No HEENT HX ENT Disorders: No Cancer Hx Cancer: No (BENIGN SKIN LESIONS) Psychosocial Hx Psychiatric Problems: No Integumentary HX Skin/Integumentary Disorder: Yes (BENIGN SKIN LESIONS) Blood Transfusions Hx Blood Disorders: No Family Medical History Significant Family History: No Pertinent Family Hx, Stroke Physical Exam Vital Signs Vital Sign - Last 12Hours Capillary Refill : Less Than 3 Seconds General Appearance: No Apparent Distress WD/WN Other (DOES NOT APPEAR TO BE IN ANY DISCOMFORT OR DISTRESSS. ) HEENT: PERRL/EOMI Other (OLD BRUSING TO FOREHEAD AND UNDER BOTH EYES. NO EVIDENCE OF ACUTE TRAUMA AND NO TENDERNESS ANYWHERE. ) Neck: Full Range of Motion Normal Inspection Non Tender Supple Respiratory: Normal Breath Sounds No Accessory Muscle Use No Respiratory Distress Cardiovascular: No Murmur Irregularly Irregular Gastrointestinal: Normal Bowel Sounds No Organomegaly Non Tender Soft Back: No CVA Tenderness No Vertebral Tenderness Other (KYPHOSIS, LEANS TO RIGHT--IS NORMAL FOR PT) Extremity: Normal Capillary Refill Non Tender No Calf Tenderness Pedal Edema ( 1+ EDEMA TO RIGHT, 2+ EDEMA TO LEFT, WITH CHRONIC VENOUS STASIS CHANGES TO BILATERAL LOWER LEGS--LEFT > RIGHT. .WOODY INDURATION BILATERALLY ) Other (NO TENDERNESS NOTED ANYWHERE. 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 UNCLEAR IF ORIENTED TO TIME. PT ABLE TO ANSWER QUESTIONS APPROPRIATELY AND FOLLOW COMMANDS. SPEECH CLEAR. DOES APPEAR MILDLY DROWSY. ) Skin: Normal Color Warm/Dry Other (CHRONIC VENOUS STASIS CHANGES TO BILATERAL LOWER LEGS--LEFT > RIGHT) Laceration Repair : Suture Size: 4-0 Progress/Results/Core Measures Results/Orders Lab Results Laboratory Tests Test 05/26/16 14:56 05/26/16 16:05 Range/Units Activated Partial Thromboplast Time 34 24-35 SEC Alanine Aminotransferase (ALT/SGPT) 19 0-55 U/L Albumin 3.8 3.2-4.5 G/DL Alkaline Phosphatase 127 40-136 U/L Anion Gap 13 5-14 MMOL/L Aspartate Amino Transf (AST/SGOT) 43 H 5-34 U/L BUN/Creatinine Ratio 33 Basophils # (Auto) 0.0 0.0-0.1 10^3/uL Basophils (%) (Auto) 0 0-10 % Blood Urea Nitrogen 36 H 7-18 MG/DL Calcium Level 9.0 8.5-10.1 MG/DL Carbon Dioxide Level 25 21-32 MMOL/L Chloride Level 96 L 98-107 MMOL/L Creatine Kinase MB 4.1 <6.6 NG/ML Creatinine 1.08 0.60-1.30 MG/DL Eosinophils # (Auto) 0.0 0.0-0.3 10^3/uL Eosinophils (%) (Auto) 0 0-10 % Estimat Glomerular Filtration Rate 49 Glucose Level 97 70-105 MG/DL Hematocrit 35 35-52 % Hemoglobin 11.7 11.5-16.0 G/DL INR Comment 1.3 0.8-1.4 Lymphocytes # (Auto) 0.5 L 1.0-4.0 X 10^3 Lymphocytes (%) (Auto) 12 12-44 % Magnesium Level 2.4 1.8-2.4 MG/DL Mean Corpuscular Hemoglobin 32 25-34 PG Mean Corpuscular Hemoglobin Concent 33 32-36 G/DL Mean Corpuscular Volume 97 80-99 FL Mean Platelet Volume 10.9 H 7.4-10.4 FL Monocytes # (Auto) 0.6 0.0-1.0 X 10^3 Monocytes (%) (Auto) 14 H 0-12 % Neutrophils # (Auto) 3.3 1.8-7.8 X 10^3 Neutrophils (%) (Auto) 73 42-75 % Platelet Count 127 L 130-400 10^3/uL Potassium Level 4.1 3.6-5.0 MMOL/L Prothrombin Time 15.7 H 12.2-14.7 SEC Red Blood Count 3.66 L 4.35-5.85 10^6/uL Red Cell Distribution Width 13.2 10.0-14.5 % Sodium Level 134 L 135-145 MMOL/L TSH [place] Testing 3.01 0.35-4.94 UIU/ML Total Bilirubin 0.7 0.1-1.0 MG/DL Total Creatine Kinase 95 29-168 U/L Total Protein 7.1 6.4-8.2 G/DL Troponin I < 0.30 <0.30 NG/ML White Blood Count 4.5 4.3-11.0 10^3/uL Ur Tricyclic Antidepressants Screen NEGATIVE NEGATIVE Urine Amphetamines Screen NEGATIVE NEGATIVE Urine Bacteria NEGATIVE /HPF Urine Barbiturates Screen NEGATIVE NEGATIVE Urine Benzodiazepines Screen NEGATIVE NEGATIVE Urine Bilirubin NEGATIVE NEGATIVE Urine Cannabinoids Screen NEGATIVE NEGATIVE Urine Casts PRESENT /LPF Urine Clarity CLEAR Urine Cocaine Screen NEGATIVE NEGATIVE Urine Color YELLOW Urine Crystals NONE /LPF Urine Culture Indicated NO Urine Glucose (UA) NEGATIVE NEGATIVE Urine Hyaline Casts RARE /LPF Urine Ketones NEGATIVE NEGATIVE Urine Leukocyte Esterase NEGATIVE NEGATIVE Urine Methadone Screen NEGATIVE NEGATIVE Urine Methamphetamines Screen NEGATIVE NEGATIVE Urine Mucus NEGATIVE /LPF Urine Nitrite NEGATIVE NEGATIVE Urine Opiates Screen POSITIVE H NEGATIVE Urine Oxycodone Screen NEGATIVE NEGATIVE Urine Phencyclidine Screen NEGATIVE NEGATIVE Urine Propoxyphene Screen NEGATIVE NEGATIVE Urine Protein NEGATIVE NEGATIVE Urine RBC NONE /HPF Urine RBC (Auto) NEGATIVE NEGATIVE Urine Specific [place] 1.010 L 1.016-1.022 Urine Squamous Epithelial Cells 0-2 /HPF Urine Urobilinogen NORMAL NORMAL MG/DL Urine WBC NONE /HPF Urine pH 6 5-9 My Orders Orders-STEFFENHAVEN K DO Saline Lock/Iv-Start (05/26/16 14:44) Ekg Tracing (05/26/16 14:44) O2 (05/26/16 14:44) Monitor-Rhythm Ecg Trace Only (05/26/16 14:44) Ct Head Wo (05/26/16 14:44) Cbc With Automated Diff (05/26/16 14:44) Comprehensive Metabolic Panel (05/26/16 14:44) Creatine Kinase (05/26/16 14:44) Creatine Kinase Mb (05/26/16 14:44) Drug Screen Stat (Urine) (05/26/16 14:44) Magnesium (05/26/16 14:44) Protime With Inr (05/26/16 14:44) Partial Thromboplastin Time (05/26/16 14:44) Thyroid Analyzer (05/26/16 14:44) Troponin I (05/26/16 14:44) Ua Culture If Indicated (05/26/16 14:44) Chest 1 View, Ap/Pa Only (05/26/16 14:44) Vital Signs/I&O Blood Pressure Mean: 95 Progress Note : Progress Note LENGTHY DISCUSSIONS WITH MULTIPLE FAMILY MEMBERS HER, WELL A SON ON THE PHONE. PT DOES NOT MEET ADMISSION CRITERIA AND EXPLAINED THAT PT DID NOT HAVE TO BE ADMITTED TO HOSPITAL IN ORDER TO GO INTO A HALF-WAY. THEY HAVE NOT CHOSEN A HALF-WAY AT THIS POINT EITHER, OR MADE ANY ATTEMPT THEMSELVES TO CONTACT A HALF-WAY. ADVISED THEM THEY COULD DISCUSS THIS WITH DR. NEAL AND HE COULD FACILITATE HALF-WAY PLACEMENT WELL, AND COULD ADMIT HER TO A FACILITY WHERE HE IS ON STAFF SO HE COULD CONTINUE TO CARE FOR HER. FAMILY BECOMING VERY DEMANDING AND SOMEWHAT BELLIGERENT AND THEN MAKING MULTIPLE THREATS TO CALL AUTHORITIES, ETC. 1739--Ayleen CERON, LIBRARIAN HEAD HERE TO TALK WITH FAMILY. HE OFFERED TO CALL INDUSTRIAL ELECTRICIAN JOURNEYMAN AND FAMILY REFUSED. FAMILY ALSO DEMANDED THAT WE PROVIDE CLOTHING FOR PT TO GO HOME IN, A SMALL AMOUNT OF BLOOD GOT ON PT'S CLOTHING DURING IV STICK. PT WAS GIVEN AND DRESSED IN A SET OF SCRUBS TO GO HOME IN. PT HAD NO COMPLAINTS DURING ENTIRE ER STAY AND NO DETERIORATION OF PT'S CONDITION DURING ER STAY ECG Initial ECG Impression Time: 14:32 Initial ECG Rate: 65 Initial ECG Rhythm: A Fib/Flutter (IVCD) Initial ECG Impression: Nonspecific Changes Initial ECG Comparisson: Unchanged Diagnostic Imaging Comments CT HEAD--NO ACUTE PROCESS, CHRONIC / OLD CHANGES--PER RADIOLOGIST REPORT @ 1553 CXR--NO ACUTE PROCESS, PER RADIOLOGIST REPORT Reviewed: Reviewed by Me Departure Communication Progress Notes 1655--ATTEMPTING TO CONTACT DR. NEAL. NO ANSWER AT OFFICE OR ON CELL PHONE. MESSAGE LEFT 1715--ATTEMPTING TO CONTACT DR. NEAL AGAIN. MESSAGE LEFT ON CELL PHONE [phone]--DISCUSSED WITH DR. LOVE, HOSPITALIST. HE AGREES THAT PT DOES NOT MEET ANY CRITERIA FOR HOSPITAL ADMISSION AT THIS TIME. Impression Impression: Primary Impression: Falls Additional Impression: CHRONIC POOR MOBILITY Disposition: 01 HOME, SELF-CARE Condition: Stable Departure-Patient Inst. Referrals: MINERVA NEAL DO (PCP/Family) Primary Care Physician Patient Instructions: Preventing Falls in the Older Adult Add. Discharge Instructions: FOLLOW UP WITH DR. NEAL FOR FURTHER CARE All discharge instructions reviewed with patient and/or family. Voiced understanding. HAVEN BOURNE DO May 26, 2016 17:10
[2016-05-26 18:05] VITALS: BP 118/75
== END 2016-05-26 18:11 | disposition home or self-care (01) ==
LOC: EDUNIT# 14:27 → ER 14:29
DX: R29.6 Repeated falls (principal); R53.81 Other malaise; F03.90 Unspecified dementia, unspecified severity, without behavioral disturbance, psychotic disturbance, mood disturbance, and anxiety; I48.2 Chronic atrial fibrillation; I10 Essential (primary) hypertension; R09.02 Hypoxemia; Z79.891 Long term (current) use of opiate analgesic; Z79.899 Other long term (current) drug therapy; Z87.891 Personal history of nicotine dependence; Z95.0 Presence of cardiac pacemaker; Z99.81 Dependence on supplemental oxygen
CPT/HCPCS: 36415; 70450; 71010; 80053; 80306; 81000; 82550; 82553; 83735; 84443; 84484; 85025; 85610; 85730; 93005; 93041

== ENCOUNTER 2016-06-22 13:46 | Emergency (ER) | payer MEDICARE, OTHER ==
[~2016-06-22] VITALS: Ht 167.6 cm; Wt 68.0 kg
--- OUTSIDE RECORDS SUMMARY | 2016-06-22 13:51 | XMS REPORT | Continuity of Care Document ---
Author Author [facility] Organization [facility] Address Unknown Phone Unavailable Care Team Providers Care Fire Services Plumber Name Role Phone zEe Siddiquien PCP [phone] Source Comments Some departments are not documenting in the electronic medical record. If you do not see the information that you expected, contact Release of Information in the Health Information Management department at [phone] for further assistance in locating additional records.[facility] Active Allergies and Adverse Reactions [...] Take 1 Tab by mouth twice Active C,V-Kd-yfckl-lutein-zeaxa daily. n (PRESERVISION AREDS 2) [id number] sh-ulpy-hg-mg cap fish oil /omega-3 fatty Take 1 [...] thyroid nodules 11/24/2013 SSS (sick sinus syndrome) ([facility]) 04/23/2013 Overview: 11/07/11 - PPM implant by Steven García at [facility] Cardiac pacemaker in situ 04/23/2013 Overview: 11/07/11 - MDT PPM Adapta SR ADSRO1; RV Lead [id number] Aortic regurgitation 04/18/2013 SDH (subdural hematoma) ([facility]) 01/10/2013 Adnexal mass 11/29/2012 Cardiomegaly 11/29/2012 Pacemaker 11/29/2012 Nocturnal hypoxia 11/29/2012 Chronic a-fib ([facility]) 11/29/2012 Ulcerative colitis ([facility]) 11/29/2012 Diverticulitis 11/29/2012 Macular degeneration [...]
--- NOTE | 2016-06-22 14:04 | ED General ---
General Stated Complaint: UNRESPONSIVE Source of Information: Patient, EMS, Correction Records Exam Limitations: No Limitations History of Present Illness Time Seen by Provider: 14:01 Initial Comments To ER per EMS from snf with reports of a syncopal event. Patient reportedly had seizure-like activity or some sort of syncopal event about 20 minutes prior to EMS being notified. Patient did lose control of bowel or bladder during that time. Of note, patient did complain of a severe right- sided headache this morning at breakfast time. She has a history remotely of intracranial hemorrhage while being on warfarin for atrial fibrillation. She was ultimately transferred to the [facility] and treated with peter hole decompression. She is no longer on warfarin. Following that incident she was briefly on prophylactic seizure medications but those have also been stopped. Timing/Duration: 4-6 Hours Severity: Moderate Allergies and Home Medications Allergies Coded Allergies: NKANo Known Allergies (Unverified Allergy, Mild, 05/29/09) Home Medications 1,000 MG PO BID (Reported) 1 TAB PO BID (Reported) Amoxicillin 500 Mg Capsule #21 500 MG PO TID Prescribed by: VERONICA SORIANO on 05/02/16 0948 Calcium/Vitamin D 1 Tab Tablet 600 MG PO BID (Reported) Carvedilol 3.125 Mg Tablet 1 EACH PO BID (Reported) Citalopram Hydrobromide 20 Mg Tablet 1 EACH PO DAILY (Reported) Ferrous Sulfate 325 Mg Tablet 325 MG PO BID (Reported) Magnesium Chloride 64 Mg Tablet.sa 64 MG PO DAILY (Reported) Meloxicam 7.5 Mg Tablet #30 1 EACH PO DAILY PRN PRN elbow swelling/pain Prescribed by: MINERVA OTOOLE on 05/05/14 2302 Mesalamine 800 Mg Tablet.dr 800 MG PO TID (Reported) Selfridge 3 Polyunsat Fatty Acids 1,000 Mg Cap 1,000 MG PO DAILY (Reported) Oxycodone Hcl 10 Mg Tab 10 MG PO BID (Reported) Potassium Chloride 20 Meq Tab 20 MEQ PO TID (Reported) Pyridoxine/Melatonin 1 Tab Tablet 3 MG PO HS (Reported) Simvastatin 20 Mg Tablet 20 MG PO HS (Reported) Constitutional: see HPI EENTM: see HPI Respiratory: no symptoms reported Cardiovascular: no symptoms reported Genitourinary: no symptoms reported Musculoskeletal: no symptoms reported Skin: no symptoms reported Psychiatric/Neurological: See HPI Hematologic/Lymphatic: No Symptoms Reported Immunological/Allergic: no symptoms reported Past Olvomwh-Fwddie-Lnuqlc Hx Patient Social History Type Used: Cigarettes Recent Hopitalizations: No Immunizations Up To Date Tetanus Booster (TDap): Unknown Date of Pneumonia Vaccine: May 07, 2009 Date of Influenza Vaccine: Jan 16, 2014 Seasonal Allergies Seasonal Allergies: Yes Surgeries HX Surgeries: Yes (BRAIN SURGERY,KNEE SURGERY, FOOT SURGERY ; HYST/BSO) Surgeries: Appendectomy, Hysterectomy, Neurological, Oophorectomy, Orthopedic, Pacemaker, Thyroidectomy Respiratory Hx Respiratory Disorders: Yes (HYPOXIA--WEARS O2 AT 2-3L/NC CONTINUOUSLY) Respiratory Disorders: Pneumonia Cardiovascular Hx Cardiac Disorders: Yes (PULMONARY HTN, PACEMAKER) Cardiac Disorders: Atrial Fibrillation, Chronic Edema/Swelling, High Cholesterol, Hypertension Neurological Hx Neurological Disorders: Yes (HX OF INTRACRANIAL BLEED) Neurological Disorders: Dementia, Stroke Reproductive System Hx Reproductive Disorders: No [employer]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 ) Gastrointestinal Disorders: Colitis, Gastrointestinal Bleed, Diverticulosis Musculoskeletal Hx Musculoskeletal Disorders: Yes (CHRONIC NECK PAIN , SPINAL STENOSIS; OELCRANON BURSITIS) Musculoskeletal Disorders: Osteoporosis, Arthritis, Chronic Back Pain Endocrine Hx Endocrine Disorders: No HEENT HX ENT Disorders: No Cancer Hx Cancer: No (BENIGN SKIN LESIONS) Psychosocial Hx Psychiatric Problems: No Integumentary HX Skin/Integumentary Disorder: Yes (BENIGN SKIN LESIONS) Blood Transfusions Hx Blood Disorders: No Family Medical History Significant Family History: No Pertinent Family Hx, Stroke Physical Exam Vital Signs Vital Sign - Last 12Hours 06/22/16 13:50 Temp 98.8 Pulse 64 Resp 18 B/P 118/59 Pulse Ox 96 Capillary Refill : General Appearance: No Apparent Distress WD/WN Chronically ill Eyes: Bilateral Eye EOMI, Bilateral Eye Normal Inspection, Bilateral Eye PERRL HEENT: PERRL/EOMI TMs Normal Neck: Full Range of Motion Normal Inspection Respiratory: Normal Breath Sounds No Accessory Muscle Use No Respiratory Distress Cardiovascular: Regular Rate, Rhythm Normal Peripheral Pulses Gastrointestinal: Normal Bowel Sounds Non Tender Soft Extremity: Normal Capillary Refill Normal Inspection Other (chronic discoloration lower x-rays.) Neurologic/Psychiatric: Alert Other (sitting upright in bed on her own accord , alert, smiling. She knows that she is at the hospital because she had some sort of event at the snf. When asked what month it is she states "November oh no, that's the month of my birthday. I guess I dont know what month it is") Skin: Normal Color Warm/Dry Focused Exam Lactic Acid Level Laboratory Tests Test 06/22/16 13:55 Alanine Aminotransferase (ALT/SGPT) 17U/L (0-55) Albumin 3.4G/DL (3.2-4.5) Alkaline Phosphatase 136U/L (40-136) Anion Gap 14MMOL/L (5-14) Aspartate Amino Transf (AST/SGOT) 42U/L (5-34) H BUN/Creatinine Ratio 10 Blood Urea Nitrogen 8MG/DL (7-18) Calcium Level 8.7MG/DL (8.5-10.1) Carbon Dioxide Level 32MMOL/L (21-32) Chloride Level 93MMOL/L (98-107) L Creatinine 0.82MG/DL (0.60-1.30) Estimat Glomerular Filtration Rate > 60 Glucose Level 98MG/DL (70-105) Potassium Level 3.6MMOL/L (3.6-5.0) Sodium Level 139MMOL/L (135-145) Total Bilirubin 0.6MG/DL (0.1-1.0) Total Protein 6.9G/DL (6.4-8.2) Troponin I < 0.30NG/ML (<0.30) Laceration Repair : Suture Size: 4-0 Progress/Results/Core Measures Results/Orders Lab Results Laboratory Tests Test 06/22/16 13:55 06/22/16 15:20 Range/Units Alanine Aminotransferase (ALT/SGPT) 17 0-55 U/L Albumin 3.4 3.2-4.5 G/DL Alkaline Phosphatase 136 40-136 U/L Anion Gap 14 5-14 MMOL/L Aspartate Amino Transf (AST/SGOT) 42 H 5-34 U/L BUN/Creatinine Ratio 10 Basophils # (Auto) 0.0 0.0-0.1 10^3/uL Basophils (%) (Auto) 0 0-10 % Blood Urea Nitrogen 8 7-18 MG/DL Calcium Level 8.7 8.5-10.1 MG/DL Carbon Dioxide Level 32 21-32 MMOL/L Chloride Level 93 L 98-107 MMOL/L Creatinine 0.82 0.60-1.30 MG/DL Eosinophils # (Auto) 0.0 0.0-0.3 10^3/uL Eosinophils (%) (Auto) 0 0-10 % Estimat Glomerular Filtration Rate > 60 Glucose Level 98 70-105 MG/DL Hematocrit 36 35-52 % Hemoglobin 11.7 11.5-16.0 G/DL INR Comment 1.2 0.8-1.4 Lymphocytes # (Auto) 0.6 L 1.0-4.0 X 10^3 Lymphocytes (%) (Auto) 11 L 12-44 % Mean Corpuscular Hemoglobin 32 25-34 PG Mean Corpuscular Hemoglobin Concent 32 32-36 G/DL Mean Corpuscular Volume 99 80-99 FL Mean Platelet Volume 10.4 7.4-10.4 FL Monocytes # (Auto) 0.5 0.0-1.0 X 10^3 Monocytes (%) (Auto) 9 0-12 % Neutrophils # (Auto) 4.0 1.8-7.8 X 10^3 Neutrophils (%) (Auto) 79 H 42-75 % Platelet Count 190 130-400 10^3/uL Potassium Level 3.6 3.6-5.0 MMOL/L Prothrombin Time 14.5 12.2-14.7 SEC Red Blood Count 3.67 L 4.35-5.85 10^6/uL Red Cell Distribution Width 13.3 10.0-14.5 % Sodium Level 139 135-145 MMOL/L Total Bilirubin 0.6 0.1-1.0 MG/DL Total Protein 6.9 6.4-8.2 G/DL Troponin I < 0.30 <0.30 NG/ML White Blood Count 5.1 4.3-11.0 10^3/uL Urine Bacteria NONE /HPF Urine Bilirubin NEGATIVE NEGATIVE Urine Casts NONE /LPF Urine Clarity CLEAR Urine Color YELLOW Urine Crystals NONE /LPF Urine Culture Indicated NO Urine Glucose (UA) NEGATIVE NEGATIVE Urine Ketones NEGATIVE NEGATIVE Urine Leukocyte Esterase NEGATIVE NEGATIVE Urine Mucus NEGATIVE /LPF Urine Nitrite NEGATIVE NEGATIVE Urine Protein NEGATIVE NEGATIVE Urine RBC NONE /HPF Urine RBC (Auto) NEGATIVE NEGATIVE Urine Specific [place] 1.010 L 1.016-1.022 Urine Squamous Epithelial Cells RARE /HPF Urine Urobilinogen NORMAL NORMAL MG/DL Urine WBC NONE /HPF Urine pH 7 5-9 My Orders Orders-NEGAR JOHNSON APRN Chest 1 View, Ap/Pa Only (06/22/16 13:54) Ct Head/Cervical Spine Wo (06/22/16 13:54) Cbc With Automated Diff (06/22/16 13:54) Comprehensive Metabolic Panel (06/22/16 13:54) Protime With Inr (06/22/16 13:54) Ua Culture If Indicated (06/22/16 13:54) Troponin I (06/22/16 14:00) Hydrocodone/Apap 5/325 Tablet (Lortab 5 (06/22/16 15:30) Vital Signs/I&O Vital Sign - Last 12Hours 06/22/16 13:50 Temp 98.8 Pulse 64 Resp 18 B/P 118/59 Pulse Ox 96 Diagnostic Imaging Diagonstic Imaging: Xray, CT Comments NAME: ELSY ROSA [place] REC#: [id number] PT STATUS: REG ER : 1935 PHYSICIAN: NEGAR JOHNSON APRN ADMIT DATE: 06/22/16/ER Draft Date of Exam:06/22/16 CHEST 1 VIEW, AP/PA ONLY INDICATION: Unresponsive. COMPARISON: 05/26/2016. FINDINGS: A single view of the chest demonstrates cardiac enlargement with unchanged chronic interstitial opacities. There was no pneumothorax, effusion or focal infiltrate. The pacemaker is stable. Osseous structures are normal. IMPRESSION: Cardiac enlargement without pulmonary edema or infiltrate. Dictated on workstation # [id number] Dict: 06/22/16 1427 Trans: 06/22/16 1433 [facility] [id number] Interpreted by: JOVANY DEL ROSARIO Electronically signed by: NAME: ELSY ROSA [place] [facility] REC#: [id number] PT STATUS: REG ER : 1935 PHYSICIAN: NEGAR JOHNSON APRN ADMIT DATE: 06/22/16/ER Draft Date of Exam:06/22/16 CT HEAD/CERVICAL SPINE WO PROCEDURE: CT head and CT cervical spine without contrast. TECHNIQUE: Multiple contiguous axial images were obtained through the brain and cervical spine without the use of intravenous contrast. Sagittal and coronal reformations through the cervical spine were then performed. INDICATION: Unresponsive today. Headache. EXAMINATION: CT brain CT cervical spine dated 06/22/2012. COMPARISON made to a CT brain dated 05/26/[address] cervical spine from 05/02/2016. CT BRAIN: No hemorrhage or infarct is seen. No mass, mass-effect or midline shift is seen and there is no hydrocephalus. The ventricles are prominent but stable from previous. Atrophy as well as chronic ischemic disease again noted. Old postoperative changes noted along the left calvarium. An area of encephalomalacia within the left temporal lobe consistent with a chronic process. No acute osseous abnormalities are appreciated. The visualized sinuses demonstrate chronic disease with no air-fluid levels appreciated. CT CERVICAL SPINE: There is minimal grade 1 anterolisthesis of C6 on C7 and C7 on T1. Remaining alignment is preserved. Vertebral body heights are maintained. No acute fracture is appreciated. Multilevel diffuse facet hypertrophy noted throughout the cervical spine. Spur disc complex is also noted throughout the spine as well without significant central stenosis appreciated. Lung apices are unremarkable. Paravertebral soft tissues multiple large cystic lesions throughout the thyroid gland right worse than left with consultations in the region also noted. These findings are nonspecific and could be better characterized sonographically as clinically warranted on a nonemergent basis. Adjacent serpiginous hypodensities likely prominent tortuous vessels again similar from previous as well. IMPRESSION: 1. 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 Finding similar to previous imaging. 2. Abnormal findings within the soft tissues in the right aspect of the neck likely thyroid in nature. This could better characterized on a nonemergent thyroid sonogram. 3. Chronic findings within the brain, as described above, with no superimposed acute intracranial process. Dictated on workstation # [id number] Dict: 06/22/16 1428 Trans: 06/22/16 1439 [facility] [id number] Interpreted by: AMMON SALINAS MD Electronically signed by: Departure Communication Progress Notes 1505- reexam: patient is sitting up in bed alert stable vitals, heart rate 65 paced, blood pressure 114/73. Patient's daughters are at the bedside. They state "sometimes she just does this and then she comes out of it". CT head is unremarkable, chest x-ray is clear of any acute abnormalities, patient voices no complaints at this time and denies pain, denies shortness of breath or nausea. We will obtain a urine sample and if this is normal discharge back to snf. Family is in agreement with this plan. Impression Impression: Primary Impression: Transient alteration of awareness Disposition: 03 XFER SNF Condition: Stable Departure-Patient Inst. Decision time for Depature: 15:40 Referrals: MINERVA DAY DO (PCP/Family) Primary Care Physician Patient Instructions: NO INSTRUCTIONS GIVEN Add. Discharge Instructions: 1. Return to ER for any concerns 2. Follow-up with Dr. Day this week Copy Copies To 1: MINERVA DAY PETER J APRN Jun 22, 2016 14:04
[2016-06-22 14:18] LABS: BASOPHILS % (AUTO) 0 % (0-10); EOSINOPHILS % (AUTO) 0 % (0-10); LYMPHOCYTES # (AUTO) 0.6 X 10^3 (1.0-4.0); LYMPHOCYTES % (AUTO) 11 % (12-44); MEAN CORPUSCULAR HEMOGLOBIN 32 PG (25-34); MEAN CORPUSCULAR HGB CONC 32 G/DL (32-36); MEAN CORPUSCULAR VOLUME 99 FL (80-99); MEAN PLATELET VOLUME 10.4 FL (7.4-10.4); MONOCYTES # (AUTO) 0.5 X 10^3 (0.0-1.0); MONOCYTES % (AUTO) 9 % (0-12); NEUTROPHILS % (AUTO) 79 % (42-75); PLATELET COUNT 190 10^3/uL (130-400); RED BLOOD COUNT 3.67 10^6/uL (4.35-5.85); RED CELL DISTRIBUTION WIDTH 13.3 % (10.0-14.5); WHITE BLOOD COUNT 5.1 10^3/uL (4.3-11.0)
[2016-06-22 14:28] LABS: INR 1.2 (0.8-1.4); PROTHROMBIN TIME PATIENT 14.5 SEC (12.2-14.7)
--- NOTE | 2016-06-22 14:33 | Diagnostic Imaging Report ---
INDICATION: Unresponsive. COMPARISON: 05/26/2016. FINDINGS: A single view of the chest demonstrates cardiac enlargement with unchanged chronic interstitial opacities. There was no pneumothorax, effusion or focal infiltrate. The pacemaker is stable. Osseous structures are normal. IMPRESSION: Cardiac enlargement without pulmonary edema or infiltrate. Dictated by: Dictated on workstation # [id number]
[2016-06-22 14:37] LABS: ALANINE AMINOTRANSFERASE 17 U/L (0-55); ALBUMIN 3.4 G/DL (3.2-4.5); ANION GAP 14 MMOL/L (5-14); ASPARTATE AMINO TRANSFERASE 42 U/L (5-34); BILIRUBIN,TOTAL 0.6 MG/DL (0.1-1.0); BLOOD UREA NITROGEN 8 MG/DL (7-18); BUN/CREATININE RATIO 10; CALCIUM 8.7 MG/DL (8.5-10.1); CARBON DIOXIDE 32 MMOL/L (21-32); CHLORIDE 93 MMOL/L (98-107); CREATININE SERUM 0.82 MG/DL (0.60-1.30); GFR ESTIMATED > 60; GLUCOSE 98 MG/DL (70-105); POTASSIUM 3.6 MMOL/L (3.6-5.0); SODIUM 139 MMOL/L (135-145); TOTAL PROTEIN 6.9 G/DL (6.4-8.2)
--- NOTE | 2016-06-22 14:39 | Diagnostic Imaging Report ---
PROCEDURE: CT head and CT cervical spine without contrast. TECHNIQUE: Multiple contiguous axial images were obtained through the brain and cervical spine without the use of intravenous contrast. Sagittal and coronal reformations through the cervical spine were then performed. INDICATION: Unresponsive today. Headache. EXAMINATION: CT brain CT cervical spine dated 06/22/2012. COMPARISON made to a CT brain dated 05/26/[address] cervical spine from 05/02/2016. CT BRAIN: No hemorrhage or infarct is seen. No mass, mass-effect or midline shift is seen and there is no hydrocephalus. The ventricles are prominent but stable from previous. Atrophy as well as chronic ischemic disease again noted. Old postoperative changes noted along the left calvarium. An area of encephalomalacia within the left temporal lobe consistent with a chronic process. No acute osseous abnormalities are appreciated. The visualized sinuses demonstrate chronic disease with no air-fluid levels appreciated. CT CERVICAL SPINE: There is minimal grade 1 anterolisthesis of C6 on C7 and C7 on T1. Remaining alignment is preserved. Vertebral body heights are maintained. No acute fracture is appreciated. Multilevel diffuse facet hypertrophy noted throughout the cervical spine. Spur disc complex is also noted throughout the spine as well without significant central stenosis appreciated. Lung apices are unremarkable. Paravertebral soft tissues multiple large cystic lesions throughout the thyroid gland right worse than left with consultations in the region also noted. These findings are nonspecific and could be better characterized sonographically as clinically warranted on a nonemergent basis. Adjacent serpiginous hypodensities likely prominent tortuous vessels again similar from previous as well. IMPRESSION: 1. 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 Finding similar to previous imaging. 2. Abnormal findings within the soft tissues in the right aspect of the neck likely thyroid in nature. This could better characterized on a nonemergent thyroid sonogram. 3. Chronic findings within the brain, as described above, with no superimposed acute intracranial process. Dictated by: Dictated on workstation # [id number]
[2016-06-22 14:43] LABS: TROPONIN I < 0.30 NG/ML (<0.30)
[2016-06-22 15:28] LABS: BILIRUBIN,URINE NEGATIVE (NEGATIVE); KETONES,URINE NEGATIVE (NEGATIVE); LEUKOCYTE ESTERASE ,URINE NEGATIVE (NEGATIVE); NITRITE,URINE NEGATIVE (NEGATIVE); PH,URINE 7 (5-9); PROTEIN,URINE NEGATIVE (NEGATIVE); UROBILINOGEN,URINE NORMAL (NORMAL)
[2016-06-22] MEDS ORDERED: HYDROcodone/APAP 5 MG/325 MG (LORTAB) TAB PO ONE (15:30)
[2016-06-22 15:36] LABS: SQUAMOUS EPITHELIAL CELL,UR RARE /HPF
[2016-06-22 16:53] VITALS: BP 118/59
== END 2016-06-22 16:50 ==
LOC: EDUNIT# 13:46 → ER 13:47
DX: R40.4 Transient alteration of awareness (principal); I10 Essential (primary) hypertension; I25.2 Old myocardial infarction; F03.90 Unspecified dementia, unspecified severity, without behavioral disturbance, psychotic disturbance, mood disturbance, and anxiety; M47.812 Spondylosis without myelopathy or radiculopathy, cervical region; Z79.899 Other long term (current) drug therapy; Z95.0 Presence of cardiac pacemaker; Z86.73 Personal history of transient ischemic attack (TIA), and cerebral infarction without residual deficits
CPT/HCPCS: 36415; 51702; 70450; 71010; 72125; 80053; 81000; 84484; 85025; 85610

== ENCOUNTER → 2016-08-19 | Outpatient (CLI) | payer MEDICARE, OTHER ==
--- NOTE | 2016-08-19 09:43 | Diagnostic Imaging Report ---
EXAMINATION: Bilateral diagnostic mammogram. CAD is utilized. The current study was also evaluated with a Computer Aided Detection (CAD) system. COMPARISON: 06/01/15. INDICATION: Left breast mass. Background heterogenously dense parenchyma is seen bilaterally. The left breast demonstrate skin thickening which could relate to benign or malignant lymphatic obstruction or central venous obstruction. The right breast demonstrate no definite mass. Benign-appearing calcifications are seen. There is a pacemaker in the axillary area on the left side with no enlarged lymph nodes seen. IMPRESSION: 2 cm upper outer left breast suspicious mass highly suspicious for breast cancer. There is skin thickening in the left breast which could be benign or malignant in etiology. Ultrasound evaluation pending. BI-RADS 0. ACR BI-RADS Category 0: Incomplete. (Needs additional imaging evaluation). Result letter will be mailed to the patient. Note: At least 10% of breast cancer is not imaged by mammography. Dictated by: Dictated on workstation # [id number]
--- NOTE | 2016-08-19 09:52 | Diagnostic Imaging Report ---
EXAMINATION: Left breast ultrasound. INDICATION: Left breast lump. Findings: There is an irregular suspicious hypoechoic mass measuring 2.7 x 1.6 x 2.1 CM located at 2:00 zone, 5 cm from the nipple. It has internal vascularity seen with color Doppler and shadowing. There are enlarged axillary lymph nodes measuring up to 2.1 x 0.9 x 1.5 CM. The 4 quadrants of the left breast otherwise demonstrate no other masses. IMPRESSION: 1. At 2:00 zone, there is a 2.7 cm mass, almost certainly breast cancer. 2. Enlarged left axillary lymph node concerning for spread. 3. Ultrasound guided biopsies of the breast mass and axillary lymph nodes recommended. 4. The mammogram demonstrated skin thickening in the left breast which could be benign or malignant. BI-RADS 5. ACR BI-RADS Category 5: Highly suggestive of malignancy. The findings were discussed with Dr. Zeeshan Day at time of dictation. Dictated by: Dictated on workstation # [id number]
== END ==
LOC: RAD 07:51
PROVIDERS: ATTEND Internal Medicine
DX: N63 Unspecified lump in breast (principal); R59.0 Localized enlarged lymph nodes
CPT/HCPCS: 76641; 77066

== ENCOUNTER → 2016-08-28 | Outpatient (CLI) | payer MEDICARE, OTHER ==
[~2016-08-28] VITALS: Ht 167.6 cm; Wt 68.0 kg
[~2016-08-28] MED LIST changes: +LIDOCAINE 1% INJ 20 ML (XYLOCAINE) VIAL INJ ONE; +LIDOCAINE 1% INJ 20 ML (XYLOCAINE) VIAL ONE
[2016-08-28 14:30] VITALS: BP 127/84
[2016-08-28 15:30] VITALS: BP 130/84
--- NOTE | 2016-08-28 16:34 | Diagnostic Imaging Report ---
EXAMINATION: Ultrasound-guided biopsy of a breast mass. A metallic clip placed to audra biopsy site. INDICATION: Left breast mass. CONSENT: Informed consent was obtained from the patient. The risks, benefits, potential complications and alternatives were reviewed and all questions answered to the patient's satisfaction. FINDINGS: Ultrasound images demonstrate a left breast mass at 2:00 zone, 5 CM from the. PROCEDURE: After sterile preparation and draping, 1% lidocaine was utilized for local anesthesia. A 13-gauge guide needle was introduced under live ultrasound guidance to the level of the lesion. Good needle position was documented with ultrasound images. 14-gauge biopsy needle was utilized and core biopsies were performed. Multiple samples were obtained and sent to pathology. A metallic clip was placed to audra the site of the biopsy. A subsequent mammogram is performed and confirms the proper positioning of the clip. The patient tolerated the procedure well with no immediate complications. IMPRESSION: Successful ultrasound-guided core biopsy of 2:00 left breast mass. Dictated by: Dictated on workstation # [id number]
--- NOTE | 2016-08-28 19:53 | Diagnostic Imaging Report ---
EXAMINATION: Left breast digital diagnostic mammogram with CAD. CC and lateral views of the left breast were obtained. The current study was also evaluated with a Computer Aided Detection (CAD) system. INDICATION: Left breast mass status post ultrasound-guided biopsy. FINDINGS: After ultrasound-guided biopsy, a biopsy clip was placed which is seen within the central upper aspect of the left breast mass. The mass is located in the central slightly lateral aspect in the left breast. IMPRESSION: Satisfactory clip position after ultrasound-guided biopsy. Pathology results are pending. ACR BI-RADS Category 5: Highly suggestive of malignancy. Result letter will be mailed to the patient. Note: At least 10% of breast cancer is not imaged by mammography. Dictated by: Dictated on workstation # [id number]
== END ==
LOC: RAD 13:55
PROVIDERS: ATTEND Internal Medicine
DX: C50.912 Malignant neoplasm of unspecified site of left female breast (principal)
CPT/HCPCS: 19083

== ENCOUNTER → 2016-10-14 | Outpatient (CLI) | payer MEDICARE, OTHER, MEDICAID ==
[~2016-10-14] MED LIST changes: -LIDOCAINE 1% INJ 20 ML (XYLOCAINE) VIAL INJ ONE; -LIDOCAINE 1% INJ 20 ML (XYLOCAINE) VIAL ONE
== END ==
LOC: CARD 13:25
PROVIDERS: ATTEND Internal Medicine Interventional Cardiology
DX: I48.91 Unspecified atrial fibrillation (principal); I42.9 Cardiomyopathy, unspecified; I27.2 Other secondary pulmonary hypertension; Z95.0 Presence of cardiac pacemaker
CPT/HCPCS: 93306

== ENCOUNTER 2016-11-22 10:10 | Observation (INO) | payer MEDICARE, OTHER, MEDICAID ==
[~2016-11-22] VITALS: Ht 165.1 cm; Wt 73.7 kg
--- OUTSIDE RECORDS SUMMARY | 2016-11-22 10:16 | XMS REPORT | Encounter Summary ---
Author Author [facility] Organization [facility] Address Unknown Phone Unavailable Care Team Providers Care Customer Experience Intern Name Role Phone PCP Unavailable Reason for Visit * Reason Comments Heme/Onc Care Encounter Details Date Type Department Care Team Description 11/03/2016 Office Visit [facility] Ann Marie Sanchez MD Malignant neoplasm of Cancer Center - [address] breast in female, Exam BIA 1107 estrogen receptor [address] [address] positive, [place] [address] laterality, unspecified [phone] site of breast (Primary Dx) Social History Tobacco Use Types Packs/Day Years Used Date Former Smoker Cigarettes 2 20 Quit: 04/06/1992 Smokeless Tobacco: Never Used Alcohol Use Drinks/Week oz/Week Comments No Sex Assigned at Date Recorded Not on file as of this encounter Last Filed Vital Signs Vital Sign Reading Time Taken Blood Pressure 112/68 11/03/2016 3:00 PM CDT Pulse 66 11/03/2016 3:00 PM CDT Temperature 36.7 C (98.1 F) 11/03/2016 3:00 PM CDT Respiratory Rate 18 11/03/2016 3:00 PM CDT Oxygen Saturation 100% 11/03/2016 3:00 PM CDT Inhaled Oxygen - - Concentration Weight - - Height - - Body Mass Index - - in this encounter Functional Status Functional Status Response Date of Assessment Does the patient have a hearing impairment: No 11/03/2016 Does the patient have a visual impairment: Yes 11/03/2016 Does the patient have impaired ambulation: No 11/03/2016 Does the patient have an activity of daily living Yes 11/03/2016 (ADL) impairment: Does the patient have an instrumental activity of Yes 11/03/2016 daily living (IADL) impairment: Cognitive Status Response Date of Assessment Does the patient have a cognitive impairment: Yes 11/03/2016 as of this encounter Instructions * Patient Instructions - Charisse Fofana RN - 11/03/2016 3:00 PM CDT Discuss with Bala if you would like to discuss taking the arimidex. Arimidex is the pill that we would prescribe to reduce your risk further of future breast cancers. Side effect of the drug can include joint pain and stiffness and may also increase dementia. Please call our office at [phone] if you would like to take the medication so we can call it into your pharmacy. in this encounter Progress Notes * Radha Loza - 11/03/2016 3:00 PM CDT PATIENTS DAUGHTER TO CALL FOR APPT WHEN SHE KNOWS TRANSPORTATION ARRANGEMENTS * Ann Marie Sanchez MD - 11/03/2016 3:00 PM CDT Formatting of this note may be different from the original. 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 postmenopausal (surgically induced) female who was in her usual state of health when a family member appreciated a mass in her left breast approx. 3 months prior to diagnosis. Bilateral diagnostic mammogram 08/19/16 ([facility]) showed a highly suspicious mass in the left breast. Left breast US 08/19/16 ([facility]) showed the mass to be 2.7cm with and enlarged left axillary lymph node. 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 ER 100, VA 60, Her2 1+ by IHC, with a Ki-67 of 25%. Ni Roblero currently resides in a long-term care facility in [place], [place]. 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 Per son report previous lumpectomy/biopsy that was benign. Current Therapy: post left mastectomy HPI Comments: Ni returns today via w/c, accompanied by her daughter, s/p left total mastectomy and SLNB with Dr. Heart of 10/24/16 to discuss pathology. States she is doing well. No health concerns voiced. Review of Systems Unable to perform ROS: Dementia Constitutional: Negative for activity change, appetite change, chills, fatigue, fever and unexpected weight change. HENT: Negative for congestion, mouth sores, sore throat, tinnitus and trouble swallowing. Eyes: Negative for visual disturbance. Respiratory: Negative for cough, chest tightness, shortness of breath and wheezing. Cardiovascular: Negative for chest pain, palpitations and leg swelling. Gastrointestinal: Negative for abdominal distention, abdominal pain, blood in stool, constipation, diarrhea, nausea and vomiting. Genitourinary: Negative for difficulty urinating, dysuria, frequency and urgency. Musculoskeletal: Negative for arthralgias, back pain and joint swelling. Skin: Negative for rash. Neurological: Negative for dizziness, weakness, numbness and headaches. Hematological: Negative for adenopathy. Does not bruise/bleed easily. Psychiatric/Behavioral: Negative for sleep disturbance. The patient is not nervous/anxious. Objective: aspirin EC 81 mg tablet Take 81 mg by mouth twice daily. bisoprolol (ZEBETA) 5 mg tablet TAKE 1 TABLET BY MOUTH EVERY 12 HOURS citalopram (CELEXA) 20 mg tablet Take 20 mg by mouth at bedtime daily. docusate (COLACE) 100 mg capsule Take 1 Cap by mouth twice daily. fish oil /omega-3 fatty acids (SEA-OMEGA) 340/1000 mg capsule Take 1 Cap by mouth twice daily. furosemide (LASIX) 80 mg tablet Take 80 mg by mouth every morning. glucosamine(+) 500 mg tab Take 500 mg by mouth daily with breakfast. guaiFENesin LA (MUCINEX) 600 mg tablet Take 600 mg by mouth at bedtime daily. lutein 20 mg Tab Take by mouth. Magnesium 250 mg tab Take by mouth daily. melatonin 3 mg Tab Take 3 mg by mouth at bedtime daily. mesalamine(+) (ASACOL HD) 800 mg tablet Take 800 mg by mouth three times daily. metOLazone (ZAROXOLYN) 2.5 mg tablet Take 2.5 mg by mouth three times weekly. M-W- morphine SR (MS CONTIN; ORAMORPH SR) 30 mg ER tablet Take 30 mg by mouth every 12 hours simvastatin (ZOCOR) 20 mg tablet Take 1 Tab by mouth daily with dinner. vitamins, multiple cap Take 1 Cap by mouth daily. Vitals: 11/03/16 1500 BP: 112/68 Pulse: 66 Resp: 18 Temp: 36.7 C (98.1 F) TempSrc: Oral SpO2: 100% There is no height or weight on file to calculate BMI. Pain Score: Five Pain Loc: Chest Pain Addressed: Patient declines intervention Patient Evaluated for a Clinical Trial: No treatment clinical trial available for this patient. Eastern Cooperative Oncology Group performance status is 3, Capable of only limited selfcare, confined to bed or chair more than 50% of waking hours. Physical Exam Constitutional: She is oriented to person, place, and time. She appears well- developed and well-nourished. No distress. HENT: Head: Normocephalic and atraumatic. Mouth/Throat: Oropharynx is clear and moist. No oral lesions. Eyes: Conjunctivae and EOM are normal. Pupils are equal, round, and reactive to light. No scleral icterus. Neck: Normal range of motion. Cardiovascular: Normal rate, regular rhythm and normal heart sounds. Exam reveals no gallop and no friction rub. No murmur heard. Pulmonary/Chest: Effort normal and breath sounds normal. She has no wheezes. She has no rhonchi. She has no rales. Right breast exhibits no inverted nipple, no mass, no nipple discharge and no skin change. Left breast exhibits no inverted nipple, no mass, no nipple discharge and no skin change. Breasts are asymmetrical. There is no breast swelling. Abdominal: Soft. Normal appearance and bowel sounds are normal. She exhibits no distension and no mass. There is no tenderness. There is no guarding. Genitourinary: No breast tenderness, discharge or bleeding. Musculoskeletal: Normal range of motion. She exhibits no edema. Lymphadenopathy: She has no cervical adenopathy. She has no axillary adenopathy. Right: No supraclavicular adenopathy present. Left: No supraclavicular adenopathy present. Neurological: She is alert and oriented to person, place, and time. She has normal strength. No cranial nerve deficit. Skin: Skin is warm and dry. No rash noted. Psychiatric: She has a normal mood and affect. Her behavior is normal. Judgment and thought content normal. Vitals reviewed. Exam deferred as the principle focus of today's visit was review/discussion of results. PATHOLOGY REPORT 10/24/16 Final Diagnosis: A. Lymph node (1), "left axillary lymph node #1", excision: There is no evidence of malignancy (0/1). Deeper sections and PanCK immunostaining are negative supporting the diagnosis. B. Lymph node (1), "left axillary lymph node #2", excision: There is no evidence of malignancy (0/1). Deeper sections and PanCK immunostaining are negative supporting the diagnosis. C. Lymph node (1), "left axillary lymph node #3", excision: There is no evidence of malignancy (0/1). Deeper sections and PanCK immunostaining are negative supporting the diagnosis. D. Breast, "left breast total mastectomy short superior long lateral", total mastectomy: Invasive ductal carcinoma, histologic grade II. See checklist. 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 Previous biopsy site changes. E. Skin and subcutaneous tissue, "left axillary dog ear clip hernandez margin", excision: No diagnostic abnormalities. Negative for malignancy. Comment: INVASIVE CARCINOMA OF THE BREAST Specimen Type: Total mastectomy and sentinel node biopsy Laterality: Left Tumor Site: 2:00 Histologic Type: Invasive ductal carcinoma Size of Invasive Component: 4.0 x 2.3 x 1.6 cm Tumor Multicentricity: Absent Surgical Margins: For invasive carcinoma: More than 1 cm from all margins For DCIS: More than 1 cm from all margins Histologic Grade ([place] Histologic Score): II/III Tubule Formation: 3 Nuclear Grade: 2 Mitotic Count (40x objective): 2 Total [place] Score: 7/9 Ductal Carcinoma In-situ (DCIS): Present Extensive intraductal component (>25%): Absent DCIS within and/or adjacent to invasive carcinoma: Yes DCIS separate from invasive carcinoma: No Lobular Carcinoma In-situ (LCIS): Absent Lymph-Vascular Invasion: Present Nipple Involvement: Absent Skin Involvement: Absent Lymph Node Sampling: [place] lymph node(s) only Total number of involved nodes/total nodes found: 0/3 Prognostic markers: Ordered. See Tumor Prognostic Marker addendum in Results Review. Time between tumor removal and placement into formalin < 1 hour: Yes Fixation Time between 6-72 hours: Yes Pathologic Staging: [id number] Tumor Markers 10/24/16 ER 99 VA 68 Her2 1+ Ki-67 Assessment and Plan: The patient is a 80 y.o. postmenopausal (surgically induced) female with the followin. Invasive ductal carcinoma, grade II. S/p left total mastectomy and SLNB 10/24. Pathologic Staging: pT2 N0 Mn/a. ER 99 VA 68 Her2 negative (1+ by IHC) with Ki-67 26% 2. Dementia 3. Legally blind I have reviewed in detail with Ni the surgical pathology results. We have discussed the details of her particular cancer including tumor size, grade, mandy status, prognostic markers, and HER-2 status. We have reviewed the potential toxicities of Arimidex including increased vasomotor symptoms such as hot flashes, arthralgias, and elevated blood pressure. We have also described the risk for decreased bone mineral density with this medication. We will obtain a DEXA for baseline measurement and will continue to monitor this periodically for the duration of her treatment, once we know her decision. We have provided her with written information regarding this medication for further review. I have estimated her risk of systemic recurrence to be approximately 20% which would be reduced with the use of anti-hormone therapy. Given her dementia and advanced age I am not sure if the risk benefit ratio is in her favor. Ni will discuss hormone therapy with her son and let us know what she decides. RTC 3 - 4 months In the presence of Ann Marie Sanchez MD, I have taken down these notes, Ashley Feliz LPN, Tamiko. in this encounter Plan of Treatment Not on fileas of this encounter Visit Diagnoses Diagnosis Malignant neoplasm of breast in female, estrogen receptor positive, unspecified laterality, unspecified site of breast - Primary in this encounter
--- OUTSIDE RECORDS SUMMARY | 2016-11-22 10:16 | XMS REPORT | Encounter Summary ---
Author Author [facility] Organization [facility] Address Unknown Phone Unavailable Care Team Providers Care State Fire Marshal Name Role Phone PCP Unavailable Reason for Visit * Reason Comments Appointment Encounter Details Date Type Department Care Team Description 11/10/2016 Telephone [facility] Ann Marie Sanchez MD Appointment [facility] - [facility] Exam [address] [place] [address] [place] [address] [phone] Social History Tobacco Use Types Packs/Day Years Used Date Former Smoker Cigarettes 2 20 Quit: 04/06/1992 Smokeless Tobacco: Never Used Alcohol Use Drinks/Week oz/Week Comments No Sex Assigned at Date Recorded Not on file as of this encounter Functional Status Functional Status Response [...] impairment: Yes 11/03/2016 as of this encounter Plan of Treatment Not on fileas of this encounter Visit Diagnoses Not on filein this encounter
--- OUTSIDE RECORDS SUMMARY | 2016-11-22 10:16 | XMS REPORT | Encounter Summary ---
Author Author [facility] Organization [facility] Address Unknown Phone Unavailable Care Team Providers Care Electrician Master Name Role Phone PCP Unavailable Reason for Visit * Reason Comments Heme/Onc Care Encounter Details Date Type Department Care Team Description 11/03/2016 Office Visit [facility] DO Malignant neoplasm of [place] [address] left breast in female, [address] [place] [address] estrogen receptor [address] [place] [address] [place], [place] [address] site of breast (Primary [phone] Dx);Malignant neoplasm of upper-outer quadrant of left breast in female, estrogen receptor positive (HCC) Social History Tobacco Use Types Packs/Day Years Used Date Former Smoker Cigarettes 2 20 Quit: 04/06/1992 Smokeless Tobacco: Never Used Alcohol Use Drinks/Week oz/Week Comments No Sex Assigned at Date Recorded Not on file as of this encounter Last Filed Vital Signs Vital Sign Reading Time Taken Blood Pressure 122/74 11/03/2016 10:23 AM CDT Pulse 63 11/03/2016 10:23 AM CDT Temperature 36.8 C (98.2 F) 11/03/2016 10:23 AM CDT Respiratory Rate 18 11/03/2016 10:23 AM CDT Oxygen Saturation 98% 11/03/2016 10:23 AM CDT Inhaled Oxygen - - Concentration Weight 81.6 kg (179 lb 12.8 oz) 11/03/2016 10:28 AM CDT Height 165.1 cm (5' 5") 11/03/2016 10:28 AM CDT Body Mass Index 29.92 11/03/2016 10:28 AM CDT in this encounter Functional Status Functional Status [...] impairment: Yes 11/03/2016 as of this encounter Progress Notes * [facility] Heart, DO - 11/03/2016 10:00 AM CDT HPI: 10 days s/p left total mastectomy, SLNB. Postoperatively Ms. Payne has been doing well with minimal pain. She has no complaints. The [facility] reports no fever or chills. PHYSICAL EXAM: Breast: left Incision: C/D/I Erythema: No Ecchymosis: No Seroma: No Upper Extremity: ROM: limited at baseline Winged scapula: No Lymphedema: No PATHOLOGY: Final Diagnosis: A. Lymph node (1), "left [...] 1 cm from all margins Histologic Grade ([place] Histologic Score): II/III Tubule Formation: 3 Nuclear Grade: 2 Mitotic Count (40x objective): 2 Total [place] Score: 7/9 Ductal Carcinoma In-situ (DCIS): Present Extensive intraductal component (>25%): Absent DCIS within and/or adjacent to invasive carcinoma: Yes DCIS separate from invasive carcinoma: No Lobular Carcinoma In-situ (LCIS): Absent Lymph-Vascular Invasion: Present Nipple Involvement: Absent Skin Involvement: Absent Lymph Node Sampling: [place] lymph node(s) only Total number of involved nodes/total nodes found: 0/3 Prognostic markers: Ordered. See Tumor Prognostic Marker addendum in Results Review. Time between tumor removal and placement into formalin < 1 hour: Yes Fixation Time between 6-72 hours: Yes Pathologic Staging: [id number] ASSESSMENT/PLAN: S/P: left total mastectomy, SLNB for Left grade 2 IDC (ER100%, PR60%, HER2 1+ , Ki-67 25%) at 2:00, dx 09/2016 [id number]. The pathology was reviewed with Ms. Payne and her daughter and she was given a copy of the results. Ther dressing was removed and new CHG dressing was placed over the drain site. Ms. Payne's daughter was given a drain recording sheet to take to the [facility] with instructions on recording the output to assist with accurate recording. We discussed that once the output is less than 30 ml for 2 consecutive days, the drain is ready for removal. This can be done at the chcf if there is someone there comfortable with removal or she can return to our clinic for removal. We will also see her back in 4 months for routine follow up. She was encouraged to call with any interval questions or concerns. 1. 4 month follow up with Martha Payne PA-C 2. Continue recording GRIS drain output, instructions and recording sheet given today [facility] DO in this encounter Plan of Treatment Not on fileas of this encounter Visit Diagnoses Diagnosis Malignant neoplasm of left breast in female, estrogen receptor positive, unspecified site of breast - Primary Malignant neoplasm of upper-outer quadrant of left breast in female, estrogen receptor positive (HCC) in this encounter
--- OUTSIDE RECORDS SUMMARY | 2016-11-22 10:16 | XMS REPORT | Encounter Summary ---
Author Author [facility] Organization [facility] Address Unknown Phone Unavailable Care Team Providers Care Retail Store Manager Name Role Phone PCP Unavailable Encounter Details Date Type Department Care Team Description 11/17/2016 Documentation [facility] DO [place] [address] [place] [address] [place] [address] [place] [address] [phone] Social History Tobacco Use Types Packs/Day Years [...] as of this encounter Progress Notes * Mitali Payne RN - 11/17/2016 9:28 AM CDT at [facility] calls reporting patients drain output less than 20ml for greater than 3 days. will remove patients drain today. Post-Drain removal care instructions given to Sund. in this encounter Plan of Treatment Not on fileas of this encounter Visit Diagnoses Not on filein this encounter
--- OUTSIDE RECORDS SUMMARY | 2016-11-22 10:16 | XMS REPORT | Clinical Summary ---
Author Author [facility] Organization [facility] Address Unknown Phone Unavailable Care Team Providers Care Medical Laboratory Technologist Name Role Phone PCP Unavailable Source Comments Some departments are not documenting in the electronic medical record. If you do not see the information that you expected, contact Release of Information in the Health Information Management department at [phone] for further assistance in locating additional records.[facility] Allergies No Known Allergies Current Medications Prescription Sig. Disp. Refills Start End Date Status Date mesalamine(+) (ASACOL HD) Take 800 mg by mouth Active 800 mg tablet three times daily. citalopram (CELEXA) 20 mg Take 20 mg by mouth at Active tablet bedtime daily. lutein 20 mg Tab Take by mouth. Active melatonin 3 mg Tab Take 3 mg by mouth at Active bedtime daily. vitamins, multiple cap Take 1 Cap by mouth Active daily. aspirin EC 81 mg tablet Take 81 mg by mouth twice Active daily. simvastatin (ZOCOR) 20 mg Take 1 Tab by mouth daily 90 Tab 01/03/20 Active tablet with dinner. 14 Magnesium 250 mg tab Take by mouth daily. Active guaiFENesin LA (MUCINEX) Take 600 mg by mouth at Active 600 mg tablet bedtime daily. fish oil /omega-3 fatty Take 1 Cap by mouth twice Active acids (SEA-OMEGA) daily. 340/1000 mg capsule glucosamine(+) 500 mg tab Take 500 mg by mouth Active daily with breakfast. docusate (COLACE) 100 mg Take 1 Cap by mouth twice 180 Cap 3 01/20/20 Active capsule daily. 14 bisoprolol (ZEBETA) 5 mg TAKE 1 TABLET BY MOUTH 180 Tab 0 07/03/19 Active tablet EVERY 12 HOURS 16 furosemide (LASIX) 80 mg Take 80 mg by mouth every Active tablet morning. metOLazone (ZAROXOLYN) Take 2.5 mg by mouth Active 2.5 mg tablet three times weekly. M-W- morphine SR (MS CONTIN; Take 30 mg by mouth every Active ORAMORPH SR) 30 mg ER 12 hours tablet estrogens, conjugated Take 0.625 mg by mouth 10/25/19 Discontin (PREMARIN) 0.625 mg daily. 17 ued tablet oxyCODONE SR (OXYCONTIN) Take 10 mg by mouth every 10/25/19 Discontin 10 mg tablet 12 hours 17 ued vit Take 1 Tab by mouth twice 10/26/19 Discontin C,S-Qb-hcvgy-lutein-zeaxa daily. 17 ued n (PRESERVISION AREDS 2) [id number] uo-mgsz-an-mg cap oxyCODONE (ROXICODONE) 5 Take 1 Tab by mouth every 30 Tab 0 01/20/20 10/25/19 Discontin mg tablet 4 hours as needed 14 17 ued spironolactone TAKE 1 TABLET BY MOUTH 90 Tab 0 09/07/19 10/26/19 Discontin (ALDACTONE) 25 mg tablet DAILY AFTER BREAKFAST 15 17 ued MORPHINE SULFATE Take by mouth twice 10/25/19 Discontin (MORPHINE PO) daily. 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 Rosa is a female who presented to the [facility] on 09/22/2016 at age 80 for evaluation of left breast cancer. A left breast lump was palpated by a family member in June 2016. When it did not improve, she was sent for imaging. BREAST IMAGING: Mammogram: -- Bilateral diagnostic mammogram 08/19/16 ([place], [place]) revealed heterogeneously dense breast tissue. 2 cm upper outer left breast suspicious mass highly suspicious for breast cancer. The left breast demonstrated skin thickening which could relate to benign or malignant lymphatic obstruction or central venous obstruction. The right breast demonstrated no definite mass. Benign appearing calcifications. There was a pacemaker in the axilla of the left breast. No enlarged lymph nodes. Ultrasound: -- Left breast ultrasound 08/19/16 ([place], [place]) revealed an irregular 2.7 cm mass at 2:00, 5 cm FTN. It had internal vascularity and shadowing. There were enlarged axillary lymph nodes measuring up to 2.1 cm. -- Targeted left breast ultrasound 09/22/16 () revealed a spiculated known malignancy at 2:00 5 cm from the left nipple. This fairly homogeneous shadowing hypoechoic mass measured 2.3 cm x 2.0 cm x 3.5 cm. A clip marker seen within the mass. There appeared to be ductal extension and a small 9 mm satellite lesion at 2:30, 5 cm from the nipple. Examination of the axilla demonstrated at least 4 abnormal appearing lymph nodes suspicious for mandy metastatic disease. Ultrasound-guided biopsy of the left axilla was recommended. REPRODUCTIVE HEALTH: Age at first Menarche: Unknown Age at First Live : 23 Age at Menopause: Surgical menopause at 33, took HRT 44 years stopped in 2013 : 2 Para: 2 : None PROCEDURE: pending PERTINENT PMH: Dementia, atrial fibrillation, has pacemaker, DM2 FAMILY HISTORY: No family history of breast, ovarian or prostate cancer PHYSICAL EXAM on PRESENTATION: Exam done in chair. Right - No palpable breast masses. No skin, nipple, or areolar change. Left - 4 cm mass at 2:00. Palpable axillary lymph nodes. No supraclavicular or right axillary adenopathy. MEDICAL ONCOLOGY: Dr. Sanchez REFERRED BY: Dr. Zeeshan Day Thyroid goiter 01/18/2014 Multiple thyroid nodules 11/24/2013 SSS (sick sinus syndrome) ([facility]) 04/23/2013 Overview: 11/07/11 - PPM implant by Steven García at [facility] Cardiac pacemaker in situ 04/23/2013 Overview: 11/07/11 - MDT PPM Adapta SR [id number]; RV Lead 4076-58 Aortic regurgitation 04/18/2013 SDH (subdural hematoma) ([facility]) 01/10/2013 Adnexal mass 11/29/2012 Cardiomegaly 11/29/2012 Pacemaker 11/29/2012 Nocturnal hypoxia 11/29/2012 Chronic a-fib (HCC) 11/29/2012 Ulcerative colitis (HCC) 11/29/2012 Diverticulitis 11/29/2012 Macular degeneration 11/29/2012 Encounters Date Type Specialty Care Team Description 11/17/2016 Documentation Breast Clinic / Breast Brandon Vitale DO Center 11/10/2016 Telephone Oncology Ann Marie Sanchez MD Appointment 11/03/2016 Office Visit Oncology Ann Marie Sanchez MD Malignant neoplasm of breast in female, estrogen receptor positive, unspecified laterality, unspecified site of breast (Primary Dx) 11/03/2016 Office Visit Breast Clinic / Breast Brandon Vitale DO Malignant neoplasm of Center left breast in female, estrogen receptor positive, unspecified site of breast (Primary Dx);Malignant neoplasm of upper-outer quadrant of left breast in female, estrogen receptor positive (HCC) 10/24/2016 [facility] Cardiology Adrienne Donis MD Encounter 10/24/2016 Hospital Brandon Vitale DO Malignant neoplasm of - Encounter upper-outer quadrant of 10/25/2016 left female breast (HCC) 10/24/2016 Procedure Pass 10/24/2016 Surgery Brandon Vitale DO LEFT TOTAL MASTECTOMY, SENTINEL LYMPH NODE BIOPSY 10/23/2016 Anesthesia Farheen Hendrickson MD Event 10/02/2016 Orders Only Breast Clinic / Breast Brandon Vitale DO Malignant neoplasm of Center left breast in female, estrogen receptor positive, unspecified site of breast (Primary Dx);Pre-operative clearance 09/23/2016 Documentation Breast Clinic / Breast Brandon Vitale DO Center 09/22/2016 [facility] Oncology Ann Marie Sanchez MD Encounter 09/22/2016 Office Visit Oncology Ann Marie Sanchez MD Malignant neoplasm of left female breast, unspecified site of breast (Primary Dx) 09/22/2016 Nurse Only Breast Clinic / Breast Brandon Vitale DO At risk for lymphedema Center Sherley Rubio RN (Primary Dx) 09/22/2016 Office Visit Breast Clinic / Breast Brandon Vitale DO Pre- op testing (Primary Center Dx);Malignant neoplasm of left female breast, unspecified site of breast;Malignant neoplasm of upper-outer quadrant of left female breast (HCC);Malignant neoplasm of left female breast (HCC) 09/22/2016 Hospital Radiology Brandon Vitale DO Encounter 09/22/2016 Hospital Radiology Brandon Vitale DO Canceled (Error) Encounter 09/22/2016 Documentation Oncology Vianney Morley 09/22/2016 Prep for Case Brandon Vitale DO 09/22/2016 Ancillary Oncology Brandon Vitale DO Malignant neoplasm of Orders left female breast, unspecified site of breast (Primary Dx) 09/22/2016 Ancillary Oncology Brandon Vitale DO Malignant neoplasm of Orders left female breast, unspecified site of breast (Primary Dx) 09/17/2016 Telephone Oncology Brandon Vitale DO Navigation Assessment 09/12/2016 Hospital Brandon Vitale DO Malignant neoplasm of Encounter unspecified site of unspecified female breast (HCC) 09/11/2016 Ancillary Radiology Outpatient, Radiologist Diagnosis unknown Orders (Primary Dx) 09/08/2016 Orders Only Oncology Brandon Vitale DO Malignant neoplasm of left female breast, unspecified site of breast (Primary Dx) 08/28/2016 Hospital Radiology Encounter 08/28/2016 Hospital Radiology Encounter from Last 3 Months Immunizations Name Dates Previously Given Next Due Flu Vaccine=>3 YO 06/04/2016 (Historical) Flu Vaccine 01/19/2014 Quadrivalent=>3 Yo (Preservative Free) Flu Vaccine Trivalent=>3 01/13/2013 Yo (Preservative Free) Pneumococcal Conjugate 04/06/2014 vaccine, unspecified formulation Td Vaccine 05/07/2016 Family History Medical History Relation Name Comments Cancer Father Leukemia Cancer-Lung Father Alzheimer's Mother Stroke Mother COPD Sister Cancer-Lung Sister Relation Name Status Comments Father Mother Sister Alive Social History Tobacco Use Types Packs/Day Years Used Date Former Smoker Cigarettes 2 20 Quit: 04/06/1992 Smokeless Tobacco: Never Used Alcohol Use Drinks/Week oz/Week Comments No Sex Assigned at Date Recorded Not on file Last Filed Vital Signs Vital Sign Reading [...] Mass Index 29.92 11/03/2016 10:28 AM CDT Plan of Treatment Health Maintenance Due Date Last Done Comments PHYSICAL (COMPREHENSIVE) 1944 EXAM PERTUSSIS VACCINE 1948 SHINGLES VACCINE 1997 OSTEOPOROSIS SCREENING 2002 PREVNAR/PNEUMOVAX (#1) 2002 INFLUENZA VACCINE 12/05/2016 06/04/2016, 01/19/2014, 01/13/2013 TETANUS VACCINE 05/07/2026 05/07/2016 Implants Implanted Type Area Dog Catcher Device Expiration Model / Identifier Date Serial / Lot Unknown Pacemaker Procedures Procedure Name Priority Date/Time Associated Diagnosis Comments ECG UNCONFIRMED-SCAN 11/04/2016 Results for this 1:37 PM CDT procedure are in the results section. TELEMETRY STRIPS-SCAN 10/31/2016 Results for this 12:40 PM CDT procedure are in the results section. ECG-SCAN 10/27/2016 Results for this 11:02 AM CDT procedure are in the results section. ANESTHESIA ARTERIAL LINE Routine 10/24/2016 INSERTION 9:31 AM CDT Procedure Note - Adrienne Donis MD - 10/24/2016 9:30 AM CDT Anesthesi a Procedure: Arterial Line Placement A-LINE INSERTION Date/Time: 10/24/2016 8:30 AM Patient location: OR Indication s: hemodynami c monitoring Preproced ure checklist performed: 2 patient identifier s, risks & benefits discussed, patient evaluated, timeout performed, consent obtained, patient being monitored and sterile drape Sterile technique: - Proper hand washing - Cap, mask - Sterile gloves - Skin prep for antisepsis Arterial Line Procedure Patient sedated: no Sedation type: other; Artery prepped with chlorhexid ine; skin prep agent completely dried prior to procedure. Location: radial artery Laterality : right Technique: palpation Ultrasound image captured Needle gauge: 20 G Number of attempts: 1 Procedure Outcome Catheter secured with adhesive dressing applied Events: no complicati ons noted during insertion Observati on: pt tolerated well LEFT TOTAL MASTECTOMY, 10/24/2016 Malignant neoplasm of SENTINEL LYMPH NODE 7:30 AM CDT right female breast (HCC) BIOPSY from Last 3 Months Results * PATHOLOGY INTEROPERATIVE REPORT SCAN (11/06/2016 9:12 AM) Narrative Ordered by an unspecified provider. * ECG UNCONFIRMED-SCAN (11/04/2016 1:37 PM) Narrative Ordered by an unspecified provider. * TELEMETRY STRIPS-SCAN (10/31/2016 12:40 PM) Narrative Ordered by an unspecified provider. * TUMOR PROGNOSTIC MARKERS SCAN (10/30/2016 9:29 AM) Narrative Ordered by an unspecified provider. * ECG-SCAN (10/27/2016 11:02 AM) Narrative Ordered by an unspecified provider. * POC GLUCOSE (10/25/2016 8:43 AM) Only the most recent of 3 results within the time period is included. Component Value Ref Range Glucose, POC 128 (H) 70 - 100 MG/DL Specimen Performing Laboratory [facility] [address] [place] [id number] * PHOSPHORUS (10/25/2016 4:17 AM) Component Value Ref Range Phosphorus 3.8 2.0 - 4.0 MG/DL Specimen Performing Laboratory Blood MAIN LAB [address] [place] [id number] * MAGNESIUM (10/25/2016 4:17 AM) Component Value Ref Range Magnesium 1.9 1.6 - 2.6 mg/dL Specimen Performing Laboratory Blood MAIN LAB [address] [place], [place] [id number] * BASIC METABOLIC PANEL (10/25/2016 4:17 AM) Component Value Ref Range Sodium 131 (L) 137 - 147 MMOL/L Potassium 3.1 (L) 3.5 - 5.1 MMOL/L Chloride 89 (L) 98 - 110 MMOL/L CO2 35 (H) 21 - 30 MMOL/L Anion Gap 7 3 - 12 Glucose 131 (H) 70 - 100 MG/DL Blood Urea Nitrogen 10 7 - 25 MG/DL Creatinine 0.71 0.4 - 1.00 MG/DL Calcium 8.8 8.5 - 10.6 MG/DL eGFR Non >60 >60 mL/min Comment: The eGFR is not validated for use in drug dosing adjustments. Continue to use estimated creatinine clearance per dosing reference text. Please contact the Clinical Pharmacist for questions. eGFR >60 >60 mL/min Comment: The eGFR is not validated for use in drug dosing adjustments. Continue to use estimated creatinine clearance per dosing reference text. Please contact the Clinical Pharmacist for questions. Specimen Performing Laboratory Blood MAIN LAB [address] [place], [place] [id number] * DEVICE EVALUATION - PPM (10/24/2016 12:38 PM) Component Value Ref Range Device Implanted By Steven García M.D. - [facility] Advisory Info Advisory Info 2 Permanent Comments Permanent Comments 2 Permanent Comments 3 Permanent Comments 4 Permanent Comments 5 Permanent Comments 6 Permanent Comments 7 Research Comments Research Comments 2 Phone Check Next Due DIOMEDES/EOL Indicator VVI 65 bpm Generator Dog Catcher Medtronic Generator Dog Catcher Other Generator Model # Adapta [id number] Generator Serial # [id number] Generator Implnat Date 11/07/2011 Atrial Lead Dog Catcher Atrial Lead Dog Catcher Other Atrial Lead Model # Atrial Lead Serial # Atrial Lead Implant Date RV Lead Dog Catcher Medtronic RV Lead Dog Catcher Other RV Lead Model # 4076-58cm RV Lead Serial # [id number] RV Lead Implant Date 11/07/2011 LV Lead Dog Catcher LV Lead Dog Catcher Other LV Lead Model # LV Lead Serial # LV Lead Implant Date Other Implant Info Pacemaker Dependant No Generator Investigational No Atrial Lead Investigational RV Lead Investigational No LV Lead Investigational Device Type VVI-PM Wireless Generator No Date of Last Programming 01/02/2014 Next Programming Check Due Date of Last 01/18/2014 - Via payByMobile Interrogation Device Mode VVIR Lower Rate Limit 60 Upper Rate Limit Sensor Rate Limit 130 Pace AV Delay Sense AV Delay Mode Switch (bpm) High A Rate Detect High V Rate Detect Mode Switch Status N/A Date of Last ICM Evaluation Next ICM Check Due HF Patient No Date of Last Remote Check 01/18/2014 - Via [employer] Next Remote Check Due Enrollment Date Date of baseline remote transmission AT/AF Daily [place] Hours Average Vent Rate during AT/AF #BPM Average Vent Rate During AT/AF #Hours Remote Monitoring? No Daily [place] Threshld Alert? Average Venticular Rate AT/AF On/Off VF Detection/Therapy Off Specimen Performing Laboratory OTHER OUTSIDE LAB Narrative [employer] [facility] [employer] received and reviewed. See attached for details. Medtronic single chamber pacemaker interrogation.Device function appears normal. No alerts, no resets.Prior check was 10/10/16. 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 Events noted: Ventricular:none Report called to jacobo Eric RN. Route to RENALDO Donis EP. [10/24/2016 12:46:22 PM - ANUP CARLOS] * POC BLOOD GAS ARTERIAL (10/24/2016 12:07 PM) Component Value Ref Range PH-ART-POC 7.48 (H) 7.35 - 7.45 [id number] 57 (H) 35 - 45 MMHG PO2-ART-POC 311 (H) 80 - 100 MMHG Base Ex-ART-POC 19.0 MMOL/L O2 Sat-ART-POC 100.0 (H) 95 - 99 % Xvlvualrvjk-NJV-YIN 42.3 (H) 21 - 28 MMOL/L Specimen Performing Laboratory [facility] [address] [place] [address] * NM LYMPH NODE INJ RADIOTRACER (10/24/2016 11:42 AM) Specimen Performing Laboratory [facility] RAD RESULTS Impressions 1. Perioperative intradermal injection of Tc-99m sulfur colloid for the purpose of lymph node localization. 2. Please see separately dictated operative report for complete description of the procedure. Approved by Juan Antonio Diehl M.D. on 10/24/2016 11:55 AM By my electronic signature, I attest that I have personally reviewed the images for this examination and formulated the interpretations and opinions expressed in this report Finalized by Ton Andersen M.D. on 10/24/2016 11:57 AM. Dictated by Juan Antonio Diehl M.D. on 10/24/2016 11:54 AM. Narrative LYMPH NODE INJECTION CLINICAL HISTORY: 72-year-old female, malignant neoplasm of left female breast RADIOPHARMACEUTICAL: 0.5 mCi IV Technetium-99m sulfur colloid TECHNIQUE AND FINDINGS: The procedure was performed in the operative suite by Dr. Vitale. Please see separately dictated operative report for a complete description of the procedure. Tc-99m sulfur colloid was utilized for the purpose of lymph node localization. No significant complications were reported. Procedure Note Interface, Radiant Results - 10/24/2016 12:00 PM CDT LYMPH NODE INJECTION CLINICAL HISTORY: 72-year-old female, malignant neoplasm of left female breast RADIOPHARMACEUTICAL: 0.5 mCi IV Technetium-99m sulfur colloid TECHNIQUE AND FINDINGS: The procedure was performed in the operative suite by Dr. Vitale. Please see separately dictated operative report for a complete description of the procedure. Tc-99m sulfur colloid was utilized for the purpose of lymph node localization. No significant complications were reported. IMPRESSION 1. Perioperative intradermal injection of Tc-99m sulfur colloid for the purpose of lymph node localization. 2. Please see separately dictated operative report for complete description of the procedure. Approved by Juan Antonio Diehl M.D. on 10/24/2016 11:55 AM By my electronic signature, I attest that I have personally reviewed the images for this examination and formulated the interpretations and opinions expressed in this report Finalized by Ton Andersen M.D. on 10/24/2016 11:57 AM. Dictated by Juan Antonio Diehl M.D. on 10/24/2016 11:54 AM. * BLOOD GASES, ARTERIAL (10/24/2016 11:10 AM) Only the most recent of 2 results within the time period is included. Component Value Ref Range pH-Arterial 7.40 7.35 - 7.45 pCO2-Arterial 60 (H) 35 - 45 MMHG pO2-Arterial 273 (H) 80 - 100 MMHG Base Excess-Arterial 10.4 MMOL/L O2 Sat-Arterial 99.9 (H) 95 - 99 % Xhdpltdpltq-JGB-Xiy 34.2 (H) 21 - 28 MMOL/L Specimen Performing Laboratory Blood, arterial - Blood [facility] [address] [place] [id number] * SURGICAL PATHOLOGY (10/24/2016 9:40 AM) Component Value Ref Range PATHOLOGY REPORT [facility] [email or web address] Radhika Rankin MD, PhD, Director of Anatomic Pathology Department of Pathology and Laboratory Medicine [address] [place] [id number] Surgical Pathology Office: [phone] SURGICAL PATHOLOGY REPORT NAME: NI ROSA SURG PATH #: [id number] MR #: [id number] SPECIMEN CLASS: SR BILLING #: [id number] ALT ID #: LOCATION: [facility] DATE OF PROCEDURE: 10/24/2016 AGE: 80 SEX: F DATE RECEIVED: 10/24/2016 : 1935 TIME RECEIVED: 09:40 PHYSICIAN: BRANDON VITALE DO DATE OF REPORT: 10/28/2016 COPY TO: DATE OF PRINTIN10/28/2016 ################################################## ###################### Final Diagnosis: A. Lymph node (1), "left [...] 2 Mitotic Count (40x objective): 2 Total Sultan Score: 7/9 Ductal Carcinoma In-situ (DCIS): Present Extensive intraductal component (>25%): Absent DCIS within and/or adjacent to invasive carcinoma: Yes DCIS separate from invasive carcinoma: No Lobular Carcinoma In-situ (LCIS): Absent Lymph-Vascular Invasion: Present Nipple Involvement: Absent Skin Involvement: Absent Lymph Node Sampling: [place] lymph node(s) only Total number of involved nodes/total nodes found: 0/3 Prognostic markers: Ordered. See Tumor Prognostic Marker addendum in Results Review. Time between tumor removal and placement into formalin < 1 hour: Yes Fixation Time between 6-72 hours: Yes Pathologic Staging: [id number] The pathologic stage assigned here should be regarded as provisional, as it reflects only current pathologic data and does not incorporate full knowledge of the patient's clinical status and/or prior pathology. Block for Biomarker Testing: [D10] Attestation: By this signature, I attest that I have personally formulated the final interpretation expressed in this report and that the above diagnosis is based upon my examination of the slides and/or other material indicated in this report. +++ +++ ef/10/24/2016 ################################################## ###################### Material Received: A: left axillary lymph node #1 B: left axillary lymph node #2 C: left axillary lymph node #3 D: left breast total mastectomy short superior long lateral E: left axillary dog ear clip hernandez margin History: 80-year-old female with a history of malignant neoplasm of right female breast. Gross Description: A. Received fresh, labeled with the patient's name and "left axillary lymph node #1" is a 1.5 x 0.8 x 0.3 cm huber-yellow lymph node. The lymph node is serially sectioned perpendicular to the long axis. The entire specimen is submitted in cassette A1FS for frozen and permanent sections. (eef) B. Received fresh, labeled with the patient's name and "left axillary lymph node #2" is a 1.3 x 0.9 x 0.6 cm huber-yellow lymph node. The lymph node is serially sectioned perpendicular to the long axis. The entire specimen is submitted in cassette B1FS for frozen and permanent sections. (eef) C. Received fresh, labeled with the patient's name and "left axillary lymph node #3" is a 0.9 x 0.4 x 0.4 cm huber-yellow lymph node. The lymph node is serially sectioned perpendicular to the long axis. The entire specimen is submitted in cassette C1FS for frozen and permanent sections. (eef) D. Fixative: Fresh Labeled: "left breast total mastectomy short superior long lateral" Specimen received: Simple mastectomy Weight: 898 grams Breast measurement: 23.6 x 18.6 x 3.2 cm Skin appearance and size: Huber-white, ellipse 21.9 x 14.8 x 0.2 cm Skin induration/retraction: No Nipple: 1.5 x 1.0 x 0.4 cm eccentric everted Posterior Fascia Present: Yes Fascia Adherent to Tumor: No Lesion: 4.0 x 2.3 x 1.6 cm 4.9 cm from the lateral margin 5.6 cm from the medial margin 8.1 cm from the superior margin 10.2 cm from the inferior margin 2.2 cm from the anterior 4.1 cm from the deep margin 4.2 cm from the nipple Lesion quadrant: Upper outer quadrant Lesion location 2:00 Metallic clip identified: Yes, a wire circular clip was found at 2:00 Uninvolved breast parenchyma: Yellow-huber lobular with white-huber fibrous tissue Tissue sent to the Biospec[facility] Repository Core Facility: No The deep resection margin is inked black Axillary dissection attached: No Dry Molder sections of the specimen are submitted as follows: D1 Dry Molder sections of the upper outer quadrant. D2 Dry Molder sections of the lower outer quadrant. D3 Dry Molder sections of the lower inner quadrant. D4 Dry Molder sections of the upper inner quadrant. D5 Dry Molder section of skin closest to the lesion. D6-D7 The entire nipple, serially sectioned. D8 Deep margin closest to tumor. D9 Uninvolved section lateral to tumor. [id number] section of tumor lateral to medial. D14 Uninvolved section medial to tumor. D15 Additional section of tumor. The breast is removed from the patient at 0957, placed in formalin at 1059 and not removed from formalin until 2013 on October 24, 2016. (eef) E. Received in formalin, labeled with the patient's name and "left axillary dog ear clip hernandez margin" is an 11.2 x 5.5 x 0.9 cm irregular portion of white-huber skin and underlying pink yellow lobulated soft tissue. There are multiple surgical clips indicating the true margin, which is inked blue. The specimen is serially sectioned to reveal no gross abnormalities. Dry Molder sections are submitted in cassettes E1-E3. (mejia) ksw/10/24/2016 Intraoperative Consultation: A1FS, lymph node, "left axillary lymph node #1", excision: Negative for malignancy. B1FS, lymph node, "left axillary lymph node #2", excision: Negative for malignancy. C1FS, lymph node, "left axillary lymph node #3", excision: Negative for malignancy. John Gonzalez MD, PhD If immunohistochemical stains and/or in situ hybridization are cited in this report, the performance characteristics were determined by the Department of Pathology and Laboratory Medicine of the [facility] ([employer]) in compliance with CLIA'88 regulations. Some of these tests rely on the use of "analyte specific reagents" and are subject to specific labeling requirements by the FDA. Known positive and negative control tissues demonstrate appropriate staining. This assay has not been validated on decalcified tissues. This testing was developed by the Department of Pathology and Laboratory Medicine of the [facility]. It has not been cleared or approved by the FDA. The FDA has determined that such clearance or approval is not necessary. Specimen Performing Laboratory LAB RESULTS * GLUCOSE,BG (10/24/2016 8:30 AM) Component Value Ref Range Glucose 104 (H) 70 - 100 MG/DL Specimen Performing Laboratory Blood [facility] [address] [place] [address] * SODIUM,BG (10/24/2016 8:30 AM) Component Value Ref Range Sodium 128 (L) 137 - 147 MMOL/L Specimen Performing Laboratory Blood [facility] [address] [place], [place] [id number] * POTASSIUM, BG (10/24/2016 8:30 AM) Component Value Ref Range Potassium 3.1 (L) 3.5 - 5.1 MMOL/L Specimen Performing Laboratory Blood [facility] [address] [place], [place] [id number] * IONIZED CALCIUM,BG (10/24/2016 8:30 AM) Component Value Ref Range Ionized Calcium 1.10 1.0 - 1.3 MMOL/L Specimen Performing Laboratory Blood [facility] [address] [place] [address] * HEMOGLOBIN & HEMATOCRIT, BG (10/24/2016 8:30 AM) Component Value Ref Range Hemoglobin BG 11.1 (L) 12.0 - 15.0 GM/DL Hematocrit BG 34.4 (L) 36 - 45 % Specimen Performing Laboratory Blood [facility] [address] [place], [place] [address] [address] * PATHOLOGY REPORTS FROM OUTSIDE SCAN (09/25/2016 7:26 AM) Narrative Ordered by an unspecified provider. * CBC AND DIFF (09/22/2016 3:42 PM) Component Value Ref Range White Blood Cells 11.4 (H) 4.5 - 11.0 K/UL RBC 3.57 (L) 4.0 - 5.0 M/UL Hemoglobin 11.4 (L) 12.0 - 15.0 GM/DL Hematocrit 33.5 (L) 36 - 45 % MCV 93.7 80 - 100 FL MCH 32.0 26 - 34 PG MCHC 34.1 32.0 - 36.0 G/DL RDW 13.7 11 - 15 % Platelet Count 216 150 - 400 K/UL MPV 7.7 7 - 11 FL Neutrophils 89 (H) 41 - 77 % Lymphocytes 4 (L) 24 - 44 % Monocytes 6 4 - 12 % Eosinophils 0 0 - 5 % Basophils 1 0 - 2 % Absolute Neutrophil Count 10.20 (H) 1.8 - 7.0 K/UL Absolute Lymph Count 0.50 (L) 1.0 - 4.8 K/UL Absolute Monocyte Count 0.70 0 - 0.80 K/UL Absolute Eosinophil Count 0.00 0 - 0.45 K/UL Absolute Basophil Count 0.10 0 - 0.20 K/UL Specimen Performing Laboratory Blood [facility] [address] [address] * COMPREHENSIVE METABOLIC PANEL (09/22/2016 3:42 PM) Component Value Ref Range Sodium 130 (L) 137 - 147 MMOL/L Potassium 3.5 3.5 - 5.1 MMOL/L Chloride 87 (L) 98 - 110 MMOL/L Glucose 117 (H) 70 - 100 MG/DL Blood Urea Nitrogen 13 7 - 25 MG/DL Creatinine 0.77 0.4 - 1.00 MG/DL Calcium 9.6 8.5 - 10.6 MG/DL Total Protein 7.2 6.0 - 8.0 G/DL Total Bilirubin 1.0 0.3 - 1.2 MG/DL Albumin 3.7 3.5 - 5.0 G/DL Alk Phosphatase 117 (H) 25 - 110 U/L AST (SGOT) 35 7 - 40 U/L CO2 36 (H) 21 - 30 MMOL/L ALT (SGPT) 10 7 - 56 U/L Anion Gap 7 3 - 12 eGFR Non >60 >60 mL/min Comment: The eGFR is not validated for use in drug dosing adjustments. Continue to use estimated creatinine clearance per dosing reference text. Please contact the Clinical Pharmacist for questions. eGFR >60 >60 mL/min Comment: The eGFR is not validated for use in drug dosing adjustments. Continue to use estimated creatinine clearance per dosing reference text. Please contact the Clinical Pharmacist for questions. Specimen Performing Laboratory Blood [facility] [address] [place] [address] * US BREAST TARGET LT (09/22/2016 10:30 AM) Specimen Performing Laboratory [facility] RESULTS Impressions ACR BI-RADS Assessments: BIRAD 5-Highly suggestive of malignancy RECOMMENDATION: Sono guided biopsy of the left breast. Narrative Malignant neoplasm of left female breast, unspecified site of breast [id number] US BREAST TARGET LT: LEFT BREAST - SEPTEMBER 22, 2016 - Standard views. Technologist: Miriam Martinez, staffing rn Left breast ultrasound was performed. Imaging of the axilla was also provided. The examination is performed with the patient in wheelchair due to her inability to move and be positioned supine For the examination. There is a spiculated known malignancy at 2:00 5 cm from the left nipple. This fairly homogeneous shadowing hypoechoic mass measures 2.3 cm x 2.0 cm x 3.5 cm. A clip marker seen within the mass. There appears to be ductal extension and a small 9 mm satellite lesion at 2:30, 5 cm from the nipple. Examination of the axilla demonstrates at least 4 abnormal appearing lymph nodes suspicious for mandy metastatic disease. Impression. Known malignancy at 2:00 in the left breast, approximately 5 cm the nipple with probable surrounding ductal extension and small satellite lesion at 2:30 as discussed. The skin thickening seen on mammography is less apparent on sonography but dermal lymphatic involvement cannot be excluded given the mammographic appearance. Suspicious axillary adenopathy. Ultrasound-guided biopsy of the left axilla is recommended. Finalized by George Winters M.D. on 09/22/2016 10:42 AM. Dictated by George Winters M.D. on 09/22/2016 10:35 AM. Electronically signed and approved by: George Winters M.D. [id number] Procedure Note Interface, Radiant Results - 09/22/2016 10:43 AM CDT Malignant neoplasm of left female breast, unspecified site of breast [id number] US BREAST TARGET LT: LEFT BREAST - SEPTEMBER 22, 2016 - Standard views. Technologist: Miriam Martinez, staffing rn Left breast ultrasound was performed. Imaging of the axilla was also provided. The examination is performed with the patient in wheelchair due to her inability to move and be positioned supine For the examination. There is a spiculated known malignancy at 2:00 5 cm from the left nipple. This fairly homogeneous shadowing hypoechoic mass measures 2.3 cm x 2.0 cm x 3.5 cm. A clip marker seen within the mass. There appears to be ductal extension and a small 9 mm satellite lesion at 2:30, 5 cm from the nipple. Examination of the axilla demonstrates at least 4 abnormal appearing lymph nodes suspicious for mandy metastatic disease. Impression. Known malignancy at 2:00 in the left breast, approximately 5 cm the nipple with probable surrounding ductal extension and small satellite lesion at 2:30 as discussed. The skin thickening seen on mammography is less apparent on sonography but dermal lymphatic involvement cannot be excluded given the mammographic appearance. Suspicious axillary adenopathy. Ultrasound-guided biopsy of the left axilla is recommended. Finalized by George Winters M.D. on 09/22/2016 10:42 AM. Dictated by George Winters M.D. on 09/22/2016 10:35 AM. Electronically signed and approved by: George Winters M.D. [id number] IMPRESSION ACR BI-RADS Assessments: BIRAD 5-Highly suggestive of malignancy RECOMMENDATION: Sono guided biopsy of the left breast. * OUTSIDE PATHOLOGY CONSULT (09/12/2016 2:22 PM) Component Value Ref Range PATHOLOGY REPORT [facility] [email or web address] Radhika Rankin MD, PhD, Director of Anatomic Pathology Department of Pathology and Laboratory Medicine [address] [place] [id number] Surgical Pathology Office: [phone] PATHOLOGY CONSULTATION NAME: NI ROSA MIGUE SURG PATH #: [id number] MR #: [id number] ALT ID #: LOCATION: [facility] DATE OF PROCEDURE: 09/12/2016 AGE: 80 SEX: F DATE RECEIVED: 09/12/2016 : 1935 TIME RECEIVED: 14:22 PHYSICIAN: BRANDON VITALE DO DATE OF REPORT: 09/15/2016 COPY TO: DATE OF PRINTIN09/15/2016 ################################################## ###################### Final Diagnosis: A. Outside case [id number] (Date Collected: 08/28/2016) Breast, left, needle biopsy - Invasive ductal carcinoma, histologic grade II. See checklist. Ductal carcinoma in situ, intermediate nuclear grade, cribriform type. Comment: Breast Cancer Checklist Specimen Type: Needle core biopsy. Laterality: Left Tumor Site: Not specified Histologic Type: Invasive ductal carcinoma Size: The entire tumor size is not known. The single greatest linear length is 0.7 cm and invasive tumor involves all biopsy cores. Histologic Grade (Ashley Histologic Score): II/III Tubule Formation: 3 Nuclear Grade: 2 Mitotic Count (40x objective): 2 Total Sultan Score: 7/9 DCIS: Present Extent of DCIS (%): <5% Lymph-Vascular Invasion: Not identified Microcalcifications: Absent Tumor Necrosis: Focal Lymph Node Sampling: Not performed Prognostic markers: Per outside slides and report as following: ER: 100% MA: 60% Her2: 1+ (negative) Ki-67: 25% Time between tumor removal and placement into formalin < 1 hour: Unknown Fixation between 6-72 hours: Unknown Pathologic Staging: pTX NX MX The pathology stage assigned here should be regarded as provisional, as it reflects only current pathologic data and does not incorporate full knowledge of the patient's clinical status and/or prior pathology. Attestation: By this signature, I attest that I have personally formulated the final interpretation expressed in this report and that the above diagnosis is based upon my examination of the slides and/or other material indicated in this report. +++Electronically Signed Out+++ tricia/09/12/2016 Interpreted by: Radhika Rankin MD, Attending Physician ################################################## ###################### Material Received: A: Outside Slides x5 [id number], [facility] [address] [place] [address] History: 80-year-old female with a clinical history of breast cancer. Gross Description: A. Received are five (5) outside slides labeled "[id number]", and a properly identified surgical pathology report from [facility] [address] [place], [place] [address]Vgqeh: [phone]; . paj/09/12/2016 If immunohistochemical stains and/or in situ hybridization are cited in this report, the performance characteristics were determined by the Department of Pathology and Laboratory Medicine of the [facility] ([employer]) in compliance with CLIA'88 regulations. Some of these tests rely on the use of "analyte specific reagents" and are subject to specific labeling requirements by the FDA. Known positive and negative control tissues demonstrate appropriate staining. This testing was developed by the Department of Pathology and Laboratory Medicine of the [facility]. It has not been cleared or approved by the FDA. The FDA has determined that such clearance or approval is not necessary. Specimen Performing Laboratory [facility] RESULTS * MAMMO DIAG EXTERNAL IMAGING (08/28/2016 12:15 AM) Narrative This order has been auto finalized and does not contain a result. * US BREAST BIOPSY EXTERNAL IMAGING (08/28/2016) Narrative This order has been auto finalized and does not contain a result. from Last 3 Months
--- OUTSIDE RECORDS SUMMARY | 2016-11-22 10:17 | XMS REPORT | Encounter Summary ---
Author Author [facility] Organization [facility] Address Unknown Phone Unavailable Care Team Providers Care Front Office Assistant Name Role Phone PCP Unavailable Encounter Details Date Type Department Care Team Description 10/24/2016 Procedure Pass Cardiothor [facility] [address] [place] [address] Social History Tobacco Use Types Packs/Day Years Used Date Former Smoker Cigarettes 2 20 Quit: 04/06/1992 Smokeless Tobacco: Never Used Alcohol Use Drinks/Week oz/Week Comments No Sex Assigned at Date Recorded Not on file as of this encounter Functional Status Functional Status Response Date of Assessment Does the patient have a hearing impairment: No 09/22/2016 Does the patient have a visual impairment: Yes 09/22/2016 Does the patient have impaired ambulation: Yes 09/22/2016 Does the patient have an activity of daily living Yes 09/22/2016 (ADL) impairment: Does the patient have an instrumental activity of Yes 09/22/2016 daily living (IADL) impairment: Cognitive Status Response Date of Assessment Does the patient have a cognitive impairment: Yes 09/22/2016 as of this encounter Plan of Treatment Not on fileas of this encounter Visit Diagnoses Not on filein this encounter
--- OUTSIDE RECORDS SUMMARY | 2016-11-22 10:17 | XMS REPORT | Encounter Summary ---
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 Name Role Phone PCP Unavailable Reason for Referral * Radiology Services Status Reason Specialty Diagnoses / Referred By Referred To Procedures Contact Contact No Auth Needed Radiology Diagnoses Brandon Vitale, [facility] [place] [address] neoplasm of left [address] [place] [address] [address] (HCC) [place] 2004 Phone: [place], [place] [phone] [employer] [address] [place] Phone: INJ RADIOTRACER [phone] * Radiology Services Status Reason Specialty Diagnoses / Referred By Referred To Procedures Contact Contact No Auth Needed Radiology Diagnoses Brandon Vitale, [facility] [place] [address] neoplasm of left [address] [place], [place] breast [address] [address] (HCC) [place] 2004 Phone: [place], [place] [phone] [employer] [address] [place] Phone: INJ RADIOTRACER [phone] Reason for Visit * Auth/Cert Status Reason Specialty Diagnoses / Referred By Referred To Procedures Contact Contact Diagnoses Malignant neoplasm of right female breast (HCC) U NKNOWN Breast cancer of upper-outer quadrant of left female breast (HCC) P rocedures CA MASTECTOMY SIMPLE COMPLETE CA MASTECTOMY SIMPLE COMPLETE CA AXILLARY LYMPHADENECTOMY COMPLETE CA INTRAOP SENTINEL LYMPH NODE ID W/DYE INJECTION CA BX/EXC LYMPH NODE OPEN SUPERFICIAL CA BX/EXC LYMPH NODE OPEN DEEP AXILLARY NODE Left Total Mastectomy, [place] Lymph Node Biopsy Possible Axillary Lymph Node Dissection Encounter Details Date Type Department Care Team Description 10/24/2016 Hospital Cardiothor [facility] Brandon Jones DO Malignant neoplasm of - Encounter [address] upper-outer quadrant of 10/25/2016 [place] [address] [place] 2005 left female breast (HCC) [phone] [place] [address] [phone] Social History Tobacco Use Types Packs/Day Years Used Date Former Smoker Cigarettes 2 20 Quit: 04/06/1992 Smokeless Tobacco: Never Used Alcohol Use Drinks/Week oz/Week Comments No Sex Assigned at Date Recorded Not on file as of this encounter Last Filed Vital Signs Vital Sign Reading Time Taken Blood Pressure 104/60 10/25/2016 3:13 PM CDT Pulse 59 10/25/2016 3:13 PM CDT Temperature 36.8 C (98.3 F) 10/25/2016 3:13 PM CDT Respiratory Rate - - Oxygen Saturation 98% 10/25/2016 3:13 PM CDT Inhaled Oxygen - - Concentration Weight 79.4 kg (175 lb) 10/24/2016 7:26 AM CDT Height 165.1 cm (5' 5") 10/24/2016 7:26 AM CDT Body Mass Index 29.12 10/24/2016 7:26 AM CDT in this encounter Functional Status [...] impairment: Yes 09/22/2016 as of this encounter Discharge Instructions * Pre-Anesthesia Medication Instructions - Mari Chang RN - 10/20/2016 2:10 PM CDT Formatting of this note may be different from the original. PreOperative Medication Instructions for your patient, Ni Rosa for upcoming surgery on 10/24/[address] Vitale at the [facility] : Niclement Rosa MEDICATIONS: aspirin EC 81 mg tablet Take 81 mg by mouth twice daily. bisoprolol (ZEBETA) 5 mg tablet TAKE 1 TABLET BY MOUTH EVERY 12 HOURS citalopram (CELEXA) 20 mg tablet Take 20 mg by mouth at bedtime daily. docusate (COLACE) 100 mg capsule Take 1 Cap by mouth twice daily. estrogens, conjugated (PREMARIN) 0.625 mg tablet Take 0.625 mg by mouth daily. fish oil /omega-3 fatty acids (SEA-OMEGA) [...] 2.5 mg by mouth three times weekly. M-W-F MORPHINE SULFATE (MORPHINE PO) Take by mouth twice daily. oxyCODONE (ROXICODONE) 5 mg tablet Take 1 Tab by mouth every 4 hours as needed oxyCODONE SR (OXYCONTIN) 10 mg tablet Take 10 mg by mouth every 12 hours simvastatin (ZOCOR) 20 mg tablet Take 1 Tab by mouth daily with dinner. spironolactone (ALDACTONE) 25 mg tablet TAKE 1 TABLET BY MOUTH DAILY AFTER BREAKFAST vit C,J-Zq-ggxnu-lutein-zeaxan (PRESERVISION AREDS 2) [phone] mg-unit- mg-mg cap Take 1 Tab by mouth twice daily. vitamins, multiple cap Take 1 Cap by mouth daily. Ni Rosa 's MEDICATION INSTRUCTIONS FOR SURGERY: Before surgery Please follow these instructions regarding the patient's blood thinner medications: Surgeon is okay with patient staying on aspirin. Please have her take this the morning of surgery. Morning of surgery On the morning of surgery, do NOT ADMINISTER these medications: Vitamins/supplements Stool softeners Mesalamine Furosemide Spironolactone On the morning of surgery, ADMINISTER ONLY these medications with a sip (1-2 ounces) of water: Aspirin Bisoprolol Pain medicine (if needed) Mari Chang RN Preoperative Assessment Clinic [facility] E-mail: [email or web address] Facility Resident at: [facility] [place] Medication Instructions above faxed on 10/20 @ 14:15 * Pre-Anesthesia Patient Instructions - Mari Chang RN - 10/20/2016 2:06 PM CDT GENERAL INFORMATION Before you come to the hospital Bath/Shower Instructions Needs a CHG/chlorahexidine/Hibiclens bath the night before surgery if possible. Put on clean clothes after bath or shower. Avoid using lotion and oils. If you are having surgery above the waist, wear a shirt that fastens up the front. Sleep on clean sheets if bath or shower is done the night before procedure. Leave money, credit cards, jewelry, and any other valuables at home. The [facility] is not responsible for the loss or breakage of personal items. Remove nail french, makeup and all jewelry (including piercings) before coming to the hospital. The morning of your procedure: brush your teeth and tongue do not smoke do not shave the area where you will have surgery What to bring to the hospital ID/ Insurance Card Hide Tanner card Official documents for legal guardianship Copy of your Living Will, Advanced Directives, and/or Durable Power of Health Safety Coordinator Small bag with a few personal belongings CPAP/BiPAP machine (including all supplies) Walker,cane, or motorized scooter Cases for glasses/hearing aids/contact lens (bring solutions for contacts) Dress in clean, loose, comfortable clothing Eating or drinking before surgery Do not eat or drink anything after midnight the day before your procedure ( including gum, mints, candy, or chewing tobacco). Other instructions We will call the son with her arrival time for surgery. in this encounter Medications at Time of Discharge Medication Sig. Disp. Refills Start Date End Date aspirin EC 81 mg tablet Take 81 mg by mouth twice daily. bisoprolol (ZEBETA) 5 mg TAKE 1 TABLET BY MOUTH 180 Tab 0 07/03/2015 tablet EVERY 12 HOURS citalopram (CELEXA) 20 mg Take 20 mg by mouth at tablet bedtime daily. docusate (COLACE) 100 mg Take 1 Cap by mouth twice 180 Cap 3 2013 capsule daily. fish oil /omega-3 fatty Take 1 Cap by mouth twice acids (SEA-OMEGA) daily. 340/1000 mg capsule furosemide (LASIX) 80 mg Take 80 mg by mouth every tablet morning. glucosamine(+) 500 mg tab Take 500 mg by mouth daily with breakfast. guaiFENesin LA (MUCINEX) Take 600 mg by mouth at 600 mg tablet bedtime daily. lutein 20 mg Tab Take by mouth. Magnesium 250 mg tab Take by mouth daily. melatonin 3 mg Tab Take 3 mg by mouth at bedtime daily. mesalamine(+) (ASACOL HD) Take 800 mg by mouth 800 mg tablet three times daily. metOLazone (ZAROXOLYN) Take 2.5 mg by mouth 2.5 mg tablet three times weekly. M-W-F morphine SR (MS CONTIN; Take 30 mg by mouth every ORAMORPH SR) 30 mg ER 12 hours tablet simvastatin (ZOCOR) 20 mg Take 1 Tab by mouth daily 90 Tab 01/02/2014 tablet with dinner. vitamins, multiple cap Take 1 Cap by mouth daily. as of this encounter Progress Notes * Estephanie Payne RN - 10/25/2016 4:42 PM CDT Pt.'s son and family arrived around 1530. Reviewed D/C w/ them (I called report to Diana at [facility] prior to son's arrival to ), they had many questions and concerns. Son is very anxious about pain management and detention being able to take care of drains and dressings. I reiterated to him that I educated [facility] on GRIS drain, dressing, and pt.'s current pain level. Pt. Has seemed to be very pleasant and comfortable w/ current pain medicine regiment. All belongings packed and sent w/ family, IV d/c w/ no complications. Pt. Voided once more, prior to d/c. Was unable to measure, hat had been thrown away. Family had no further questions at time of D/C. They are planning to drive pt. To [facility] this evening. * Celine Jones MD - 10/25/2016 9:00 AM CDT Formatting of this note may be different from the original. 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 POD #1 s/p left total mastectomy and SLNB on 10/25. -PO pain control with PO morphine (CONCRETE WALL GRINDER OPERATOR medication) -Regular diet -Bowel regimen -GRIS drain to bulb suction with serosanguinous drainage -No lifting more than 10 pounds for 6 weeks -Follow up as scheduled with Dr. Vitale - Restart all CONCRETE WALL GRINDER OPERATOR medications on dischage -Dispo: discharge to nursing facility later today Discussed with Dr. Vitale and will be seen by Dr. Vitale later today. S: No acute events overnight. She is oriented to person and place today. No agitated. States her pain is well controlled on CONCRETE WALL GRINDER OPERATOR medications. Tolerating diet. Denies nausea/emesis. Tan removed this morning. O: Temp: 36.6 C (97.8 F) (10/25 718) Pulse: 60 (10/25 718) Respirations: 18 PER MINUTE (10/25 718) BP: 105/62 (10/25 718) Date 10/24/16 0701 - 10/25/16 0700 10/25/16 0701 - 10/26/16 0700 Shift 4398-0175 2116-6976 24 Hour Total 1571-2369 9005-5167 24 Hour Total I N T A K E P.O. 200 200 I.V. (mL/kg/hr) 1700 (1.8) 1700 (0.9) Other 0 0 Shift Total (mL/kg) 1700 (21.4) 200 (2.5) 1900 (23.9) O U T P U T Urine (mL/kg/hr) 450 (0.5) 875 (0.9) 1325 (0.7) Urine Output (ml) ([REMOVED] Indwelling Urinary Catheter 10/24/16 1347 16 FR Regular (Two-way)) 688 686 1307 Drains 46 25 71 Drain Output (ml) (Jose Juan Rea Drain 10/24/16 1017 Left Chest #1) 46 25 71 Other 75 75 EBL 75 75 Shift Total (mL/kg) 571 (7.2) 900 (11.3) 1471 (18.5) NET 1129 -477 429 Weight (kg) 79.4 79.4 79.4 79.4 79.4 79.4 Physical Exam: Gen: Alert, cooperative, NAD HEENT: NCAT, MMM, non-icteric Cardio: Regular rate, regular rhythm Chest: left chest incision c/d/i w/ dressings in place, no surrounding erythema or drainage, no palpable fluid collections, GRIS drain x 1 with serosanguinous output Pulm: non-labored respirations on 3L Ext: warm, dry, no edema/cyanosis of BUE Neuro: moves all extremities, no winged scapula Skin: no rashes. Skin changes on LLE. Celine Jones MD [id number] * Estephanie Payne, PAUL - 10/25/2016 8:18 AM CDT Pt requesting pain medication, scheduled pain medication not due until 0930. PRN IV pain medication available, but pt has current d/c order. Discussed w/ Breast Surgery, ok to give scheduled, now. Breast Surgery requests that pt. Voids before d/c. If pt. Not voiding, will page breast surgery again at [id number]. Will continue to monitor. * Jeannette Franklin, - 10/25/2016 6:56 AM CDT Formatting of this note may be different from the original. RESPIRATORY THERAPY ADULT PROTOCOL EVALUATION RESPIRATORY PROTOCOL PLAN Medications Note: If indicated by protocol, medication orders will be placed by therapist. Procedures PAP: Place a nursing order for "IS Q1h While Awake" for any of Lung Expansion indicators Oxygen/Humidity: O2 to keep SpO2 > 92% Monitoring: Pulse oximetry BID & PRN PATIENT EVALUATION RESULTS Chart Review * Pulmonary Hx: Smoking cessation < 8 weeks OR still smoking OR > 20 pack/yr hx (PEFR) OR occasional use of bronchodilator (AM) * Surgical Hx: Thoracic or abdominal surgery/injury (LE) * Chest X-Ray: Clear OR not available * PFT/Oxygenation: FEV1, PEFR < 70% OR Pa02 < 70 RA OR Sp02 <92% RA OR Fi02 > 0.21 to keep Sp02 > 92% OR < 24 hours post-op (02 & oxim) OR chronic C02 retention (C02) Patient Assessment * Respiratory Pattern: Regular pattern and rate OR good chest excursion with deep breathing * Breath Sounds: Clear apically, but diminished in bases (LE) OR CHF related crackles (02) (oximetry) * Cough / Sputum: Strong, effective cough OR nonproductive * Mental Status: Alert, oriented, cooperative * Activity Level: Ambulatory with assistance Priority Index Total Points: 9 Points * Priority Index: 1 PRIORITY INDEX GUIDELINES* Priority Points 1 0-9 points 2 9-18 points 3 > 18 points + Pulm Dx or Home Rx *Higher points indicate higher acuity. Therapist: Jeannette Franklin, RT Date: 10/25/2016 [place] AC=Airway clearance AM=Aerosolized medication BA=Bates aerosol DB&C=Deep breathe & cough FEV1=Forced expiratory volume in first second) IC=Inspiratory capacity LE=Lung expansion MDI=Metered dose inhaler Neb=Nebulizer O2=Oxygen Oxim=Oximetry PEFR=Peak expiratory flow rate HEATING PLANT SUPERINTENDENT=Rapid Response Team * Danika Magallanes, RN - 10/25/2016 6:14 AM CDT Pt more appropriate and pleasant this am but still only oriented to person and situation. She also falls asleep after done conversing. Britney removed this am. Pt still has green urine. Afib/V-paced on tele. VSS. Pt has denied pain. No bleeding noted from incision site. GRIS drain with sanguinous/ serosanguinous fluid. Family here for brief period last night. Denies needs at this time. Will cont to monitor. * Pau Yanez, RN - 10/24/2016 7:48 PM CDT Pt to floor at 1720 this evening, pt extremely drowsy, no c/o pain, VSS. * Jeaneth Coburn, RN - 10/24/2016 3:08 PM CDT 1115 Received pt from OR, report that she was hypoxic, on CPAP with BVM on 8/L min. Pt sedated at present. V-paced noted. EKG ordered. Left eye noted to have purulent (yellowish green) oozing drainage. 1145 Order to recheck ABGs while on CPAP.pacemaker interrogated as ordered. VSS. ABGs drawn from radial arterial line. Pt started to wake up, very obtunded and confused, c/o pain. Ofirmev ordered. 1215 Fentanyl given after Ofirmev, for patient thrashing in bed, pulling at GRIS drain, trying to crawl out of bed. Staff x 3 to try to calm and reorient her; Surgery at bedside, order to strip GRIS drain and reinforced dressings. Bleeding around GRIS site and lateral dressing site from patient fighting staff, and pulling at GRIS drain. CPAP off for now, for trial with plan to redraw ABGs in 30 min. 1245- Pt incontinent in bed, pulled out her arterial line. Pt very combative and swatting at nurses saying " let go of me, I need to get up!" Attempting to hold pressure at radial site, small hematoma noted. Pt fighting all along. Anesthesia intermittently at the bedside trying to reorient her and decide on plan. [address] Tan after giving Precedex per Dr. Shannon. Pacemaker interrogation check ok per Christa with Cardiology. 1345 Tan placed. Pt sedated on Precedex. With adequate respirations on 3L/NC and pt resting comfortably with pillows for support. 1415 Family updated and brought to bedside to visit before they left. Pt continues to sleep, rousable with stimulation. Will continue to monitor. 1430 CO at bedside, pt resting, will arouse and respond. Oxygenating well. SPO2 97% on 3L/NC with ETCO@ 42-45. Waiting on bed to transfer to floor. * Terri Schmidt, - 10/24/2016 12:07 PM CDT Formatting of this note may be different from the original. Results for NI ROSA ( ) Ref. Range 10/24/2016 12:07 pH-Arterial Latest Ref Range: 7.35 - 7.45 7.475 pCO2-Arterial Latest Ref Range: 35 - 45 MMHG 57.4 pO2-Arterial Latest Ref Range: 80 - 100 MMHG 311 Uebxdvdmcus-HQC-Pcm Latest Ref Range: 21 - 28 MMOL/L 42.3 Base Excess-Arterial Latest Units: MMOL/L 19 O2 Sat-Arterial Latest Ref Range: 95 - 99 % 100 * Carly Moctezuma, RN - 10/24/2016 7:51 AM CDT Pt son at bedside to answer questions. Pt has baseline history of some confusion and inability to answer questions. Pt son hostile states " medical people aren't sure what is going on, " States no one knows why she is on beta edgar. * Mari Chang RN - 10/20/2016 2:14 PM CDT High risk patient who is having surgery on 10/24/[address] Vitale. Pt's family refused a PAC appointment. Cardiology clearance recommended and was arranged through the surgeon's office. Echo 10/14/16 abnormal EF 40-40%. Pt ultimately deemed intermediate risk for surgery. Preop and med instructions faxed to SNF. Okay to stay on aspirin. Needs to take aspirin and beta edgar DOS. Clearance, echo results, and pacemaker interrogation in red chart. in this encounter Plan of Treatment Name Priority Associated Diagnoses Order Schedule SURGICAL PATHOLOGY Routine Malignant neoplasm of ONCE for 1 Occurrences right female breast (HCC) starting 10/24/2016 as of this encounter Procedures Procedure Name Priority Date/Time Associated Diagnosis Comments ECG UNCONFIRMED-SCAN 11/04/2016 Results for this 1:37 PM CDT procedure are in the results section. TELEMETRY STRIPS-SCAN 10/31/2016 Results for this 12:40 PM CDT procedure are in the results section. ECG-SCAN 10/27/2016 Results for this 11:02 AM CDT procedure are in the results section. LEFT TOTAL MASTECTOMY, 10/24/2016 Malignant neoplasm of SENTINEL LYMPH NODE 7:30 AM CDT right female breast (HCC) BIOPSY in this encounter Results * PATHOLOGY INTEROPERATIVE REPORT SCAN (11/06/2016 9:12 AM) Narrative Ordered by an unspecified provider. * ECG UNCONFIRMED-SCAN (11/04/2016 1:37 PM) Narrative Ordered by an unspecified provider. * TELEMETRY STRIPS-SCAN (10/31/2016 12:40 PM) Narrative Ordered by an unspecified provider. * ECG-SCAN (10/27/2016 11:02 AM) Narrative Ordered by an unspecified provider. * POC GLUCOSE (10/25/2016 8:43 AM) Component Value Ref Range Glucose, POC 128 (H) 70 - 100 MG/DL Specimen Performing Laboratory MAIN LAB [address] [place] [address] * PHOSPHORUS (10/25/2016 4:17 AM) Component Value Ref Range Phosphorus 3.8 2.0 - 4.0 MG/DL Specimen Performing Laboratory Blood MAIN LAB [address] [place] [address] * MAGNESIUM (10/25/2016 4:17 AM) Component Value Ref Range Magnesium 1.9 1.6 - 2.6 mg/dL Specimen Performing Laboratory Blood MAIN LAB [address] [place] [address] * BASIC METABOLIC PANEL (10/25/2016 4:17 AM) [...] questions. Specimen Performing Laboratory Blood MAIN LAB [address] [place] [id number] * POC GLUCOSE (10/24/2016 9:43 PM) Component Value Ref Range Glucose, POC 166 (H) 70 - 100 MG/DL Specimen Performing Laboratory MAIN LAB [address] [place] [address] * DEVICE EVALUATION - PPM (10/24/2016 12:38 PM) Component Value Ref Range Device Implanted By Steven García M.D. - [facility] Advisory Info Advisory Info 2 Permanent Comments Permanent Comments 2 Permanent Comments 3 Permanent Comments 4 Permanent Comments 5 Permanent Comments 6 Permanent Comments 7 Research Comments Research Comments 2 Phone Check Next Due DIOMEDES/EOL Indicator VVI 65 bpm Generator Wet Chemistry Analyst Medtronic Generator Wet Chemistry Analyst Other Generator Model # Adapta ADSR01 Generator Serial # [id number] Generator Implnat Date 11/07/2011 Atrial Lead Wet Chemistry Analyst Atrial Lead Wet Chemistry Analyst Other Atrial Lead Model # Atrial Lead Serial # Atrial Lead Implant Date RV Lead Wet Chemistry Analyst Medtronic RV Lead Wet Chemistry Analyst Other RV Lead Model # 4076-58cm RV Lead Serial # [id number] RV Lead Implant Date 11/07/2011 LV Lead Wet Chemistry Analyst LV Lead Wet Chemistry Analyst Other LV Lead Model # LV Lead Serial # LV Lead Implant Date Other Implant Info Pacemaker Dependant No Generator Investigational No Atrial Lead Investigational RV Lead Investigational No LV Lead Investigational Device Type VVI-PM Wireless Generator No Date of Last Programming 01/02/2014 Next Programming Check Due Date of Last 01/18/2014 - Via [email or web address] Express Interrogation Device Mode VVIR Lower Rate Limit 60 Upper Rate Limit Sensor Rate Limit 130 Pace AV Delay Sense AV Delay Mode Switch (bpm) High A Rate Detect High V Rate Detect Mode Switch Status N/A Date of Last ICM Evaluation Next ICM Check Due HF Patient No Date of Last Remote Check 01/18/2014 - Via [email or web address] Next Remote Check Due Enrollment Date Date of baseline remote transmission AT/AF Daily Flomot Hours Average Vent Rate during AT/AF #BPM Average Vent Rate During AT/AF #Hours Remote Monitoring? No Daily Flomot Threshld Alert? Average Venticular Rate AT/AF On/Off VF Detection/Therapy Off Specimen Performing Laboratory OTHER OUTSIDE LAB Narrative [employer] [facility] PACU CogMetal received and reviewed. See attached for details. Medtronic single chamber pacemaker interrogation.Device function appears normal. No alerts, no resets.Prior check was 10/10/16. 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 Events noted: Ventricular:none Report called to jacobo Eric RN. Route to RENALDO Donis EP. [10/24/2016 12:46:22 PM - ANUP CARLOS] * POC BLOOD GAS ARTERIAL (10/24/2016 12:07 PM) Component Value Ref Range PH-ART-POC 7.48 (H) 7.35 - 7.45 KOF9-ZBN-LSG 57 (H) 35 - 45 MMHG PO2-ART-POC 311 (H) 80 - 100 MMHG Base Ex-ART-POC 19.0 MMOL/L O2 Sat-ART-POC 100.0 (H) 95 - 99 % Ebxzzwbfvhs-PQH-UDN 42.3 (H) 21 - 28 MMOL/L Specimen Performing Laboratory [facility] MAIN LAB [address] [place] [address] * NM LYMPH NODE INJ RADIOTRACER (10/24/2016 [...] Diehl M.D. on 10/24/2016 11:54 AM. * POC GLUCOSE (10/24/2016 11:30 AM) Component Value Ref Range Glucose, POC 119 (H) 70 - 100 MG/DL Specimen Performing Laboratory MAIN LAB [address] [place] [address] * BLOOD GASES, ARTERIAL (10/24/2016 11:10 AM) Component Value Ref Range pH-Arterial 7.40 7.35 - 7.45 pCO2-Arterial 60 (H) 35 - 45 MMHG pO2-Arterial 273 (H) 80 - 100 MMHG Base Excess-Arterial 10.4 MMOL/L O2 Sat-Arterial 99.9 (H) 95 - 99 % Ugehwtshwpa-YXM-Msw 34.2 (H) 21 - 28 MMOL/L Specimen Performing Laboratory Blood, arterial - Blood MAIN LAB [address] [place] [address] * SURGICAL PATHOLOGY (10/24/2016 9:40 AM) Component Value Ref Range PATHOLOGY REPORT [facility] [email or web address] Radhkia Rankin MD, PhD, Director of Anatomic Pathology Department of Pathology and Laboratory Medicine [address] [place] [id number] Surgical Pathology Office: [phone] SURGICAL PATHOLOGY REPORT NAME: NI ROSA MIGUE SURG PATH #: [id number] MR #: [id number] SPECIMEN CLASS: SR BILLING #: [id number] ALT ID #: LOCATION: [facility] DATE OF PROCEDURE: 10/24/2016 AGE: 80 SEX: [...] 1 cm from all margins Histologic Grade (Carroll Histologic Score): II/III Tubule Formation: 3 Nuclear Grade: 2 Mitotic Count (40x objective): 2 Total Carroll Score: 7/9 Ductal Carcinoma In-situ (DCIS): Present Extensive intraductal component (>25%): Absent DCIS within and/or adjacent to invasive carcinoma: Yes DCIS separate from invasive carcinoma: No Lobular Carcinoma In-situ (LCIS): Absent Lymph-Vascular Invasion: Present Nipple Involvement: Absent Skin Involvement: Absent Lymph Node Sampling: [place] lymph node(s) only Total number of involved nodes/total nodes found: 0/3 Prognostic markers: Ordered. See Tumor Prognostic Marker addendum in Results Review. Time between tumor removal and placement into formalin < 1 hour: Yes Fixation Time between 6-72 hours: Yes Pathologic Staging: [id number] The pathologic stage assigned here should be [...] is inked black Axillary dissection attached: No Lockstitch Topstitcher sections of the specimen are submitted as follows: D1 Lockstitch Topstitcher sections of the upper outer quadrant. D2 Lockstitch Topstitcher sections of the lower outer quadrant. D3 Lockstitch Topstitcher sections of the lower inner quadrant. D4 Lockstitch Topstitcher sections of the upper inner quadrant. D5 Lockstitch Topstitcher section of skin closest to the lesion. D6-D7 The entire nipple, serially sectioned. D8 Deep margin closest to tumor. D9 Uninvolved section lateral to tumor. [id number] section of tumor lateral to medial. D14 [...] serially sectioned to reveal no gross abnormalities. Lockstitch Topstitcher sections are submitted in cassettes E1-E3. (mejia) ksw/10/24/2016 Intraoperative Consultation: A1FS, lymph node, "left axillary lymph node #1", excision: Negative for malignancy. B1FS, lymph node, "left axillary lymph node #2", excision: Negative for malignancy. C1FS, lymph node, "left axillary lymph node #3", excision: Negative for malignancy. Qingqing Ding, MD, PhD If immunohistochemical stains and/or in situ hybridization are cited in this report, the performance characteristics were determined by the Department of Pathology and Laboratory [facility] of the [facility] ([employer]) in compliance with CLIA'88 regulations. Some of these tests rely on the use of "analyte specific reagents" and are subject to specific labeling requirements by the FDA. Known positive and negative control tissues demonstrate appropriate staining. This assay has not been validated on decalcified tissues. This testing was developed by the Department of Pathology and Laboratory [facility] of the [facility]. It has not been cleared or approved by the FDA. The FDA has determined that such clearance or approval is not necessary. Specimen Performing Laboratory LAB RESULTS * POTASSIUM, BG (10/24/2016 8:30 AM) Component Value Ref Range Potassium 3.1 (L) 3.5 - 5.1 MMOL/L Specimen Performing Laboratory Blood [facility] [address] [place] [address] * SODIUM,BG (10/24/2016 8:30 AM) Component Value Ref Range Sodium 128 (L) 137 - 147 MMOL/L Specimen Performing Laboratory Blood [facility] [address] [place] [address] * IONIZED CALCIUM,BG (10/24/2016 8:30 AM) Component Value Ref Range Ionized Calcium 1.10 1.0 - 1.3 MMOL/L Specimen Performing Laboratory Blood [facility] [address] [place] [address] * GLUCOSE,BG (10/24/2016 8:30 AM) Component Value Ref Range Glucose 104 (H) 70 - 100 MG/DL Specimen Performing Laboratory Blood [facility] [address] [place] [address] * BLOOD GASES, ARTERIAL (10/24/2016 8:30 AM) Component Value Ref Range pH-Arterial 7.50 (H) 7.35 - 7.45 pCO2-Arterial 47 (H)Comment: CHECKED 35 - 45 MMHG pO2-Arterial 70 (L)Comment: CHECKED 80 - 100 MMHG Base Excess-Arterial 11.4 MMOL/L O2 Sat-Arterial 95.0 95 - 99 % Rbmwexjevdh-IPM-Vyl 35.1 (H) 21 - 28 MMOL/L Specimen Performing Laboratory Blood, arterial - Blood [facility] [address] [place] [address] * HEMOGLOBIN & HEMATOCRIT, BG (10/24/2016 8:30 AM) Component Value Ref Range Hemoglobin BG 11.1 (L) 12.0 - 15.0 GM/DL Hematocrit BG 34.4 (L) 36 - 45 % Specimen Performing Laboratory Blood [facility] [address] [place] [address] in this encounter Visit Diagnoses Diagnosis Malignant neoplasm of upper-outer quadrant of left female breast, unspecified estrogen receptor status - Primary Malignant neoplasm of left female breast (HCC) Malignant neoplasm of breast (female), unspecified site Malignant neoplasm of right female breast (HCC) Malignant neoplasm of breast (female), unspecified site in this encounter Admitting Diagnoses Diagnosis Malignant neoplasm of right female breast (HCC) - UNKNOWN Malignant neoplasm of breast (female), unspecified site Breast cancer of upper-outer quadrant of left female breast (HCC) in this encounter Administered Medications Medication Order MAR Action Action Date Dose Rate Site acetaminophen (OFIRMEV) 1,000 mg/100 mL Given - New 10/24/2016 1,000 mg (10 mg/mL) injection 1,000 mg Bag 12:08 CDT 1,000 mg, Intravenous, ONCE, 1 dose, Thu10/24/16 at 1145, PACU (only) aspirin EC tablet 81 mg Given 10/25/2016 81 mg 81 mg, Oral, TWICE DAILY, First dose on 08:32 CDT Thu10/25/16 at 0900, Until Discontinued ceFAZolin (ANCEF) IVP 1 g Given 10/24/2016 1 g 1 g, Intravenous, EVERY 8 HOURS, 2 19:36 CDT doses, First dose on Thu10/24/16 at 1915, Last dose on Thu10/25/16 at 0315, IV PUSH -- RECONSTITUTE each 1 g vial by adding 10 mL 0.9% NACL Given 10/25/2016 1 g 03:52 CDT citalopram (CELEXA) tablet 20 mg Given 10/24/2016 20 mg 20 mg, Oral, AT BEDTIME DAILY, First 21:40 CDT dose on Thu10/24/16 at 2100, Until Discontinued fentaNYL citrate PF (SUBLIMAZE) Given 10/24/2016 25 mcg injection 25 mcg 12:10 CDT 25 mcg, Intravenous, EVERY 5 MIN PRN, Starting Thu10/24/16 at 1041, Until Thu10/24/16 at 1708, Pain Injectable, For Pain Score < 4, Maximum total dose of 200 mcg Hold for RR < 10 Given 10/24/2016 25 mcg 12:25 CDT fentaNYL citrate PF (SUBLIMAZE) Given 10/24/2016 50 mcg injection 50 mcg 12:00 CDT 50 mcg, Intravenous, EVERY 5 MIN PRN, Starting Thu10/24/16 at 1041, Until Thu10/24/16 at 1708, Pain Injectable, For Pain Score 4-6, Maximum total dose 200 mcg Hold if RR < 10 Given 10/24/2016 50 mcg 12:45 CDT lactated ringers infusion Given - New 10/24/2016 1,000 mL 20 mL/hr 1,000 mL, 1,000 mL, Intravenous, at 20 Bag 07:47 CDT mL/hr, CONTINUOUS, Starting Thu10/24/16 at 0545, Until 10/25/16 at 1842, Pre-Op lidocaine PF 1% (10 mg/mL) injection Given 10/24/2016 2 mL 0.1-2 mL 07:47 CDT 0.1-2 mL, Injection, NEEDED, Starting Thu10/24/16 at 0636, Until Thu10/24/16 at 1708, Other..., for IV insertion, Pre-Op magnesium oxide (MAG-OX) tablet 400 mg Given 10/25/2016 400 mg 400 mg, Oral, ONCE, 1 dose, 10/25/16 08:32 CDT at 0730, Delivers 241.3mg elemental magnesium per tab melatonin tablet 3 mg Given 10/24/2016 3 mg 3 mg, Oral, AT BEDTIME DAILY, First dose 21:40 CDT on Thu10/24/16 at 2100, Until Discontinued morphine SR (MS CONTIN; ORAMORPH SR) Given 10/24/2016 30 mg tablet 30 mg 21:40 CDT 30 mg, Oral, EVERY 12 HOURS, First dose on Thu10/24/16 at 2130, Until Discontinued, DO NOT crush or chew. Given 10/25/2016 30 mg 08:32 CDT potassium chloride oral solution 80 mEq Given 10/25/2016 80 mEq 80 mEq, Oral, ONCE, 1 dose, 10/25/16 08:32 CDT at 0730 RP DX Tc-99m sulfur colloid injection 1 Given 10/24/2016 0.5 millicurie 08:15 CDT millicuries 1 millicurie, Intravenous, ONCE, 1 dose, Thu10/24/16 at 0815 senna/docusate (SENOKOT-S) tablet 1 Tab Given 10/24/2016 1 tablet 1 Tab, Oral, TWICE DAILY, First dose on 21:40 CDT Thu10/24/16 at 2100, Until Discontinued, Hold for loose stools Given 10/25/2016 1 tablet 08:33 CDT in this encounter
--- OUTSIDE RECORDS SUMMARY | 2016-11-22 10:17 | XMS REPORT | Encounter Summary ---
Author Author [facility] Organization [facility] Address Unknown Phone Unavailable Care Team Providers Care Superintendent Landfill Operations Name Role Phone PCP Unavailable Reason for Visit * Auth/Cert Status Reason Specialty Diagnoses / Referred By Referred To Procedures Contact Contact Diagnoses Malignant neoplasm of right female breast (HCC) U NKNOWN Breast cancer of upper-outer quadrant of left female breast (HCC) P rocedures [place] MASTECTOMY SIMPLE COMPLETE [place] MASTECTOMY SIMPLE COMPLETE [place] AXILLARY LYMPHADENECTOMY COMPLETE [place] INTRAOP SENTINEL LYMPH NODE ID W/DYE INJECTION NJ BX/EXC LYMPH NODE OPEN SUPERFICIAL [place] BX/EXC LYMPH NODE OPEN DEEP AXILLARY NODE Left Total Mastectomy, [place] Lymph Node Biopsy Possible Axillary Lymph Node Dissection Encounter Details Date Type Department Care Team Description 10/24/2016 Surgery Main Operating Room Brandon Vitale DO LEFT TOTAL MASTECTOMY, [address] [place] [address] MS 2005 BIOPSY [phone] [place] [address] [phone] Social History Tobacco Use Types Packs/Day Years [...] on 10/24/[address] Vitale at the [facility] : [place] MEDICATIONS: aspirin EC 81 mg tablet [...] TABLET BY MOUTH DAILY AFTER BREAKFAST vit C,Z-Xh-seomh-lutein-zeaxan (PRESERVISION AREDS 2) [id number] mg-unit- mg-mg cap Take 1 Tab by [...] needed) Mari Chang RN Preoperative Assessment Clinic [facility] E-mail: [email or web address] Resident at: [facility] Medication Instructions above faxed on 10/20 @ [...] and any other valuables at home. The [facility] is not responsible for the loss or breakage of personal items. Remove nail kiswahili, makeup and all jewelry (including piercings) before coming to the hospital. The morning of your procedure: brush your teeth and tongue do not smoke do not shave the area where you will have surgery What to bring to the hospital ID/ Insurance Card Material Movers card Official documents for legal guardianship Copy of your Living Will, Advanced Directives, and/or Durable Power of Motor Coach Tour Operator Small bag with a few personal belongings [...] (I called report to Diana at [facility] prior to son's arrival to ), they had many questions and concerns. Son is very anxious about pain management and retirement being able to take care of drains and dressings. I reiterated to him that I educated [facility] on GRIS drain, dressing, and pt.'s [...] are planning to drive pt. To [facility] this evening. * Celine Jones MD - 10/25/2016 9:00 AM CDT Formatting of this note may be different from the original. 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 POD #1 s/p left total mastectomy and SLNB on 10/25. 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 Vitale - Restart all TRUCK HEADLIGHT ASSEMBLER medications on dischage -Dispo: discharge to nursing facility later today Discussed with Dr. Vitale and will be seen by Dr. Vitale later today. S: No acute events overnight. She is oriented to person and place today. No agitated. States her pain is well controlled on TRUCK HEADLIGHT ASSEMBLER medications. Tolerating diet. Denies nausea/emesis. Tan removed this morning. O: Temp: 36.6 C (97.8 F) (10/25 718) Pulse: 60 (10/25 718) Respirations: 18 PER MINUTE (10/25 718) BP: 105/62 (10/25 718) Date 10/24/16700 - 10/25/16 0700 10/25/16 07 - 10/26/16 0700 Shift [id number] [id number] 24 Hour Total 6559-2874 3855-4597 24 Hour Total I N T A K E P.O. 200 200 I.V. (mL/kg/hr) 1700 (1.8) 1700 (0.9) Other 0 0 Shift Total (mL/kg) 1700 (21.4) 200 (2.5) 1900 (23.9) O U T P U T Urine (mL/kg/hr) 450 (0.5) 875 (0.9) 1325 (0.7) Urine Output (ml) ([REMOVED] Indwelling Urinary Catheter 10/24/16 1347 16 FR Regular (Two-way)) 613 342 1880 Drains 46 25 71 Drain Output (ml) (Jose Juan Rea Drain 10/24/16 1017 Left Chest #1) 46 25 71 Other 75 75 EBL 75 75 Shift Total (mL/kg) 571 (7.2) 900 (11.3) 1471 (18.5) NET 1129 -700 429 Weight (kg) 79.4 79.4 79.4 79.4 [...] medication, scheduled pain medication not due until 929. PRN IV pain medication available, but pt has current d/c order. Discussed w/ Breast Surgery, ok to give scheduled, now. Breast Surgery requests that pt. Voids before d/c. If pt. Not voiding, will page breast surgery again at [phone]. Will continue to monitor. * Jeannette Franklin, RT - 10/25/2016 6:56 AM CDT Formatting of [...] Date: 10/25/2016 [place] AC=Airway clearance AM=Aerosolized medication BA=Redrock aerosol DB&C=Deep breathe & cough FEV1=Forced expiratory volume in first second) IC=Inspiratory capacity LE=Lung expansion MDI=Metered dose inhaler Neb=Nebulizer O2=Oxygen Oxim=Oximetry PEFR=Peak expiratory flow rate CUSHION MAT MAKER=Rapid Response Team * Danika Magallanes, RN - 10/25/2016 6:14 AM CDT Pt more appropriate and pleasant this am but still only oriented to person and situation. She also falls asleep after done conversing. Tan removed this am. Pt still has green [...] to transfer to floor. * Terri Schmidt, RT - 10/24/2016 12:07 PM CDT Formatting of this note may be different from the original. Results for NI ROSA ( ) Ref. Range 10/24/2016 12:07 pH-Arterial Latest Ref Range: 7.35 - 7.45 7.475 pCO2-Arterial Latest Ref Range: 35 - 45 MMHG 57.4 pO2-Arterial Latest Ref Range: 80 - 100 MMHG 311 Mzjexfxfeui-GGZ-Feb Latest Ref Range: 21 - 28 MMOL/L [...] she is on beta edgar. * Mari Chang, RN - 10/20/2016 2:14 PM CDT High [...] MG/DL Specimen Performing Laboratory MAIN LAB [address] [place] [address] * PHOSPHORUS (10/25/2016 4:17 AM) Component Value Ref Range Phosphorus 3.8 2.0 - 4.0 MG/DL Specimen Performing Laboratory Blood MAIN LAB [address] [place] [address] * MAGNESIUM (10/25/2016 4:17 AM) Component Value Ref Range Magnesium 1.9 1.6 - 2.6 mg/dL Specimen Performing Laboratory Blood MAIN LAB [address] [place] [address] * BASIC METABOLIC PANEL (10/25/2016 4:17 AM) [...] questions. Specimen Performing Laboratory Blood MAIN LAB [address] [place] [address] * POC GLUCOSE (10/24/2016 9:43 PM) Component Value Ref Range Glucose, POC 166 (H) 70 - 100 MG/DL Specimen Performing Laboratory MAIN LAB [address] [place] [address] * DEVICE EVALUATION - PPM (10/24/2016 12:38 PM) Component Value Ref Range Device Implanted By Steven García M.D. - [facility] Advisory Info Advisory Info 2 Permanent Comments Permanent Comments 2 Permanent Comments 3 Permanent Comments 4 Permanent Comments 5 Permanent Comments 6 Permanent Comments 7 Research Comments Research Comments 2 Phone Check Next Due DIOMEDES/EOL Indicator VVI 65 bpm Generator Dramatic Critic Medtronic Generator Dramatic Critic Other Generator Model # Adapta ADSR01 Generator Serial # [id number] Generator Implnat Date 11/07/2011 Atrial Lead Dramatic Critic Atrial Lead Dramatic Critic Other Atrial Lead Model # Atrial Lead Serial # Atrial Lead Implant Date RV Lead Dramatic Critic Medtronic RV Lead Dramatic Critic Other RV Lead Model # 4076-58cm RV Lead Serial # [id number] RV Lead Implant Date 11/07/2011 LV Lead Dramatic Critic LV Lead Dramatic Critic Other LV Lead Model # LV Lead Serial # LV Lead Implant Date Other Implant Info Pacemaker Dependant No Generator Investigational No Atrial Lead Investigational RV Lead Investigational No LV Lead Investigational Device Type VVI-PM Wireless Generator No Date of Last Programming 01/02/2014 Next Programming Check Due Date of Last 01/18/2014 - Via [facility] Interrogation Device Mode VVIR Lower Rate Limit 60 Upper Rate Limit Sensor Rate Limit 130 Pace AV Delay Sense AV Delay Mode Switch (bpm) High A Rate Detect High V Rate Detect Mode Switch Status N/A Date of Last ICM Evaluation Next ICM Check Due HF Patient No Date of Last Remote Check 01/18/2014 - Via [facility] Next Remote Check Due Enrollment Date Date of baseline remote transmission AT/AF Daily [place] Hours Average Vent Rate during AT/AF #BPM Average Vent Rate During AT/AF #Hours Remote Monitoring? No Daily [place] Threshld Alert? Average Venticular Rate AT/AF On/Off VF Detection/Therapy Off Specimen Performing Laboratory OTHER OUTSIDE LAB Narrative [facility] PACU [facility] received and reviewed. See attached for details. Medtronic single chamber pacemaker interrogation.Device function appears normal. No alerts, no resets.Prior check was 10/10/16. Battery 1.5-4y left, avg 2.5y Presenting EGM shows GLASS ARTIST 66bpm with some VS intrinsic competition, AFib. Events noted: Ventricular:none Report called to jacobo Eric RN. Route to RENALDO Donis EP. [10/24/2016 12:46:22 PM - ANUP CARLOS] * POC BLOOD GAS ARTERIAL (10/24/2016 12:07 PM) Component Value Ref Range PH-ART-POC 7.48 (H) 7.35 - 7.45 WLE4-GAW-XAA 57 (H) 35 - 45 MMHG PO2-ART-POC 311 (H) 80 - 100 MMHG Base Ex-ART-POC 19.0 MMOL/L O2 Sat-ART-POC 100.0 (H) 95 - 99 % Xeelviwkxrs-TMW-ZDZ 42.3 (H) 21 - 28 MMOL/L Specimen Performing Laboratory MAIN LAB [address] [place] [address] * NM LYMPH NODE INJ RADIOTRACER (10/24/2016 11:42 AM) Specimen Performing Laboratory RAD RESULTS Impressions 1. Perioperative intradermal injection [...] MG/DL Specimen Performing Laboratory MAIN LAB [address] [place] [address] * BLOOD GASES, ARTERIAL (10/24/2016 11:10 AM) Component Value Ref Range pH-Arterial 7.40 7.35 - 7.45 pCO2-Arterial 60 (H) 35 - 45 MMHG pO2-Arterial 273 (H) 80 - 100 MMHG Base Excess-Arterial 10.4 MMOL/L O2 Sat-Arterial 99.9 (H) 95 - 99 % Yvjysutkzdu-ZZK-Kmy 34.2 (H) 21 - 28 MMOL/L Specimen Performing Laboratory Blood, arterial - Blood [facility] [address] [place] [address] * SURGICAL PATHOLOGY (10/24/2016 9:40 AM) Component Value Ref Range PATHOLOGY REPORT [facility] [email or web address] Radhika Rankin MD, PhD, Director of Anatomic Pathology Department of Pathology and Laboratory Medicine [address] [place] [id number] Surgical Pathology Office: [phone] SURGICAL PATHOLOGY REPORT NAME: NI ROSA SURG PATH #: [id number] MR #: [id number] SPECIMEN CLASS: SR BILLING #: [id number] ALT ID #: LOCATION: [facility] DATE OF PROCEDURE: 10/24/2016 AGE: 80 [...] 1 cm from all margins Histologic Grade ([place] Histologic Score): II/III Tubule Formation: 3 Nuclear Grade: 2 Mitotic Count (40x objective): 2 Total Ashley Score: 7/9 Ductal Carcinoma In-situ (DCIS): Present Extensive intraductal component (>25%): Absent DCIS within and/or adjacent to invasive carcinoma: Yes DCIS separate from invasive carcinoma: No Lobular Carcinoma In-situ (LCIS): Absent Lymph-Vascular Invasion: Present Nipple Involvement: Absent Skin Involvement: Absent Lymph Node Sampling: [place] lymph node(s) only Total number of involved nodes/total nodes found: 0/3 Prognostic markers: Ordered. See Tumor Prognostic Marker addendum in Results Review. Time between tumor removal and placement into formalin < 1 hour: Yes Fixation Time between 6-72 hours: Yes Pathologic Staging: [id number] The pathologic stage assigned here should be [...] is inked black Axillary dissection attached: No Embedded Software Test Engineer sections of the specimen are submitted as follows: D1 Embedded Software Test Engineer sections of the upper outer quadrant. D2 Embedded Software Test Engineer sections of the lower outer quadrant. D3 Embedded Software Test Engineer sections of the lower inner quadrant. D4 Embedded Software Test Engineer sections of the upper inner quadrant. D5 Embedded Software Test Engineer section of skin closest to the lesion. D6-D7 The entire nipple, serially sectioned. D8 Deep margin closest to tumor. D9 Uninvolved section lateral to tumor. [id number]-[id number] section of tumor lateral to medial. D14 Uninvolved section medial to tumor. D15 Additional section of tumor. The breast is removed from the patient at 0957, placed in formalin at 1059 and not removed from formalin until 2014 on October 24, 2016. (eef) E. Received [...] serially sectioned to reveal no gross abnormalities. Embedded Software Test Engineer sections are submitted in cassettes E1-E3. (fl) ksw/10/24/2016 Intraoperative Consultation: A1FS, lymph node, "left [...] of Pathology and Laboratory Medicine of the [facility] ([employer]) in compliance with CLIA'88 regulations. Some of these tests rely on the use of "analyte specific reagents" and are subject to specific labeling requirements by the FDA. Known positive and negative control tissues demonstrate appropriate staining. This assay has not been validated on decalcified tissues. This testing was developed by the Department of Pathology and Laboratory Medicine of the [facility]. It has not been cleared or approved by the FDA. The FDA has determined that such clearance or approval is not necessary. Specimen Performing Laboratory [facility] RESULTS * POTASSIUM, BG (10/24/2016 8:30 AM) Component Value Ref Range Potassium 3.1 (L) 3.5 - 5.1 MMOL/L Specimen Performing Laboratory Blood MAIN LAB [address] [place] [address] * SODIUM,BG (10/24/2016 8:30 AM) Component Value Ref Range Sodium 128 (L) 137 - 147 MMOL/L Specimen Performing Laboratory Blood MAIN LAB [address] [place] [address] * IONIZED CALCIUM,BG (10/24/2016 8:30 AM) Component Value Ref Range Ionized Calcium 1.10 1.0 - 1.3 MMOL/L Specimen Performing Laboratory Blood MAIN LAB [address] [place] [address] * GLUCOSE,BG (10/24/2016 8:30 AM) Component Value Ref Range Glucose 104 (H) 70 - 100 MG/DL Specimen Performing Laboratory Blood MAIN LAB [address] [place] [address] * BLOOD GASES, ARTERIAL (10/24/2016 8:30 AM) Component Value Ref Range pH-Arterial 7.50 (H) 7.35 - 7.45 pCO2-Arterial 47 (H)Comment: CHECKED 35 - 45 MMHG pO2-Arterial 70 (L)Comment: CHECKED 80 - 100 MMHG Base Excess-Arterial 11.4 MMOL/L O2 Sat-Arterial 95.0 95 - 99 % Qprrsyaqpvi-IWM-Sxi 35.1 (H) 21 - 28 MMOL/L Specimen Performing Laboratory Blood, arterial - Blood [facility] [address] [place] [address] * HEMOGLOBIN & HEMATOCRIT, BG (10/24/2016 8:30 AM) Component Value Ref Range Hemoglobin BG 11.1 (L) 12.0 - 15.0 GM/DL Hematocrit BG 34.4 (L) 36 - 45 % Specimen Performing Laboratory Blood MAIN LAB [address] [place] [address] in this encounter Visit Diagnoses Diagnosis Malignant neoplasm of right female [...] TWICE DAILY, First dose on 08:32 CDT 10/25/16 at 0900, Until Discontinued ceFAZolin (ANCEF) IVP [...] mL/hr, CONTINUOUS, Starting Thu10/24/16 at 0545, Until Thu10/25/16 at 1842, Pre-Op lidocaine PF 1% (10 [...]
--- OUTSIDE RECORDS SUMMARY | 2016-11-22 10:17 | XMS REPORT | Encounter Summary ---
Author Author [facility] Organization [facility] Address Unknown Phone Unavailable Care Team Providers Care Process Technician Name Role Phone PCP Unavailable Reason for Visit * Auth/Cert Status Reason Specialty Diagnoses / Referred By Referred To Procedures Contact Contact Diagnoses Malignant neoplasm of right female breast (HCC) U NKNOWN Breast cancer of upper-outer quadrant of left female breast (HCC) P rocedures [place] MASTECTOMY SIMPLE COMPLETE OK MASTECTOMY SIMPLE COMPLETE OK AXILLARY LYMPHADENECTOMY COMPLETE OK INTRAOP SENTINEL LYMPH NODE ID W/DYE INJECTION OK BX/EXC LYMPH NODE OPEN SUPERFICIAL OK BX/EXC LYMPH NODE OPEN DEEP AXILLARY NODE Left Total Mastectomy, [place] Lymph Node Biopsy Possible Axillary Lymph Node Dissection Encounter Details Date Type Department Care Team Description 10/24/2016 [facility] Cardiology Adrienne Donis MD Encounter [address] [place] [address] [place] [address] [place], [place] [id number] Social History Tobacco Use Types Packs/Day Years [...] impairment: Yes 09/22/2016 as of this encounter Medications at Time of Discharge [...] cap Take 1 Cap by mouth daily. spironolactone TAKE 1 TABLET BY MOUTH 90 Tab 0 09/06/2014 10/25/2016 (ALDACTONE) 25 mg tablet DAILY AFTER BREAKFAST vit Take 1 Tab by mouth twice 10/25/2016 C,E-Dt-tqyay-lutein-zeaxa daily. n (PRESERVISION AREDS 2) [phone] ey-vmxf-pk-mg cap as of this encounter Plan of Treatment Not on fileas of this encounter Visit Diagnoses Not on filein this encounter
--- OUTSIDE RECORDS SUMMARY | 2016-11-22 10:17 | XMS REPORT | Encounter Summary ---
Author Author [facility] Organization [facility] Address Unknown Phone Unavailable Care Team Providers Care Rn Angiography Name Role Phone PCP Unavailable Reason for Visit * Auth/Cert Status Reason Specialty Diagnoses / Referred By Referred To Procedures Contact Contact Diagnoses Malignant neoplasm of right female breast (HCC) U NKNOWN Breast cancer of upper-outer quadrant of left female breast (HCC) P rocedures CT MASTECTOMY SIMPLE COMPLETE CT MASTECTOMY SIMPLE COMPLETE CT AXILLARY LYMPHADENECTOMY COMPLETE CT INTRAOP SENTINEL LYMPH NODE ID W/DYE INJECTION CT BX/EXC LYMPH NODE OPEN SUPERFICIAL CT BX/EXC LYMPH NODE OPEN DEEP AXILLARY NODE Left Total Mastectomy, [place] Lymph Node Biopsy Possible Axillary Lymph Node Dissection Encounter Details Date Type Department Care Team Description 10/24/2016 Anesthesia Main Operating Room Farheen Hendrickson MD [address] [facility] [address] [place] [address] [place] [address] [phone] Social History Tobacco Use Types Packs/Day Years [...] as of this encounter Plan of Treatment Name Priority Associated Diagnoses Date/Time ANESTHESIA ARTERIAL LINE INSERTION Routine 10/24/2016 9:31 AM CDT as of this encounter Visit Diagnoses Not on filein this encounter Administered Medications Medication Order MAR Action Action Date Dose Rate Site ceFAZolin (ANCEF) IVP 2 g Given 10/24/2016 2 g 2 g, Intravenous, ONCE, 1 dose, Thu 08:57 CDT 10/24/16 at 0645, Give Pre-Op < 60 minutes prior to first incision. Re-dose every 4 hrs while in procedure (Given in OR). IV PUSH -- RECONSTITUTE each 1 g vial by adding 10 mL 0.9% NACL dexamethasone (DECADRON) injection Given 10/24/2016 8 mg Intravenous, INTRA-PROCEDURE MED, 08:50 CDT Starting Thu10/24/16 at 0850, Until Thu10/24/16 at 1122, Nausea/Vomiting Injectable, Anesthesia Intra-op dexmedetomidine (PRECEDEX) injection Given 10/24/2016 20 mcg INTRA-PROCEDURE MED, Starting Thu 13:11 CDT 10/24/16 at 1311, Until Thu10/24/16 at 1556, Anesthesia Intra-op diphenhydrAMINE (BENADRYL) injection Given 10/24/2016 12.5 mg INTRA-PROCEDURE MED, Starting Thu 08:50 CDT 10/24/16 at 0850, Until Thu10/24/16 at 1122, Anesthesia Intra-op famotidine (PEPCID) injection Given 10/24/2016 20 mg INTRA-PROCEDURE MED, Starting Thu 08:50 CDT 10/24/16 at 0850, Until Thu10/24/16 at 1122, Indigestion/Heartburn, Anesthesia Intra-op fentaNYL citrate PF (SUBLIMAZE) Given 10/24/2016 25 mcg injection 09:41 CDT INTRA-PROCEDURE MED, Starting Thu10/24/16 at 0941, Until Thu10/24/16 at 1122, Pain Injectable, Anesthesia Intra-op Given 10/24/2016 25 mcg 09:44 CDT midazolam (VERSED) injection Given 10/24/2016 1 mg INTRA-PROCEDURE MED, Starting Thu 08:29 CDT 10/24/16 at 0829, Until Thu10/24/16 at 1122, Agitation Injectable, Anxiety Injectable, Anesthesia Intra-op phenylephrine in NS Injection Given 10/24/2016 50 mcg Intravenous, INTRA-PROCEDURE MED, 08:42 CDT Starting Thu10/24/16 at 0905, Until Thu10/24/16 at 1122, Symptomatic Hypotension, Anesthesia Intra-op Given 10/24/2016 50 mcg 08:48 CDT Given 10/24/2016 100 mcg 09:05 CDT propofol (DIPRIVAN) injection Given 10/24/2016 50 mg INTRA-PROCEDURE MED, Starting Thu 08:41 CDT 10/24/16 at 0840, Until Thu10/24/16 at 1122, Anesthesia Intra-op Given 10/24/2016 50 mg 08:42 CDT Given 10/24/2016 30 mg 09:00 CDT remifentanil (ULTIVA) 1 mg/3 mL 1,000 Given - New 10/24/2016 50 mcg mcg in sodium chloride 0.9% (NS) 20 mL Bag 08:41 CDT Injection INTRA-PROCEDURE MED(CONT), Starting Thu10/24/16 at 0841, Until Discontinued, Anesthesia Intra-op Bolus 10/24/2016 25 mcg 08:42 CDT in this encounter
--- OUTSIDE RECORDS SUMMARY | 2016-11-22 10:18 | XMS REPORT | Encounter Summary ---
Author Author [facility] Organization [facility] Address Unknown Phone Unavailable Care Team Providers Care Fountain Attendant Name Role Phone PCP Unavailable Reason for Visit * Reason Comments Heme/Onc Care * Consult, Test & Treat (Routine) Status Reason Specialty Diagnoses / Referred By Referred To Procedures Contact Contact New Request Oncology Diagnoses Daniel Day Anne, MD DATA ENTRY/MICHAEL/Amador Zeeshan Ni III, [address] IDC/Self MD Darshan Cardona Referral/Medicar [address] [facility] [address]: ER/[place] [address] P [address] Phone: [facility] [place] OFFICE/OUTPT [phone] VISIT,BREANNE WILKINSON Mark Fax: NEW PATIENT [phone] Encounter Details Date Type Department Care Team Description 09/22/2016 Office Visit [facility] Ann Marie Sanchez MD Malignant neoplasm of [facility] [address] left female breast, Exam [address] unspecified site of [address] [place] [address] breast (Primary Dx) [place] [address] [phone] Social History Tobacco Use Types Packs/Day Years Used Date Former Smoker Cigarettes 2 20 Quit: 04/06/1992 Smokeless Tobacco: Never Used Alcohol Use Drinks/Week oz/Week Comments No Sex Assigned at Date Recorded Not on file as of this encounter Last Filed Vital Signs Vital Sign Reading Time Taken Blood Pressure 124/84 09/22/2016 3:45 PM CDT Pulse 58 09/22/2016 3:45 PM CDT Temperature 36.2 C (97.1 F) 09/22/2016 3:45 PM CDT Respiratory Rate 18 09/22/2016 3:45 PM CDT Oxygen Saturation 95% 09/22/2016 3:45 PM CDT Inhaled Oxygen - - Concentration [...] impairment: Yes 09/22/2016 as of this encounter Progress Notes * Ann Marie Sanchez MD - 09/22/2016 3:49 PM CDT Formatting of this note may be different from the original. Date of Service: 09/22/2016 Subjective: Reason for Visit: Heme/Onc Care Malignant neoplasm of upper-outer quadrant of left female breast (HCC) Staging form: Breast, AJCC 7th Edition Clinical stage from 09/22/2016: Stage IIB (T2, N1, M0) - Signed by Martha Payne PA-C on 09/22/2016 No matching staging information was found for the patient. Ni Payne is a 80 y.o. female. HPI Comments: Ni Payne is a pleasant 80 y.o. female who was in her usual state of health when a family member appreciated a mass in her left breast approx. 3 months prior to diagnosis. Bilateral diagnostic mammogram 08/19/16 ([facility] ) showed a highly suspicious mass in the left breast. Left breast US 08/19/16 ( [facility]) showed the mass to be 2.7cm with and enlarged left axillary lymph node. 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 ER 100, NY 60, Her2 1+ by IHC, with a Ki-67 of 25%. Ni Roblero currently resides in a long-term care facility in [place], [place]. 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 Per son report previous lumpectomy/biopsy that was benign. She presents today, accompanied by her son, to discuss treatment plan. She arrived via w/c. She has ecchymosis left maxilla facial area. Son states Ni fell at the residential. Ni continued hormone replacement therapy until 2 years ago. Surgeon: Dr. Heart. PMH: Pacemaker Genetics: N/A TIMELINE: 08/19/2016 Bilateral Diagnostic Mammogram ([facility]) Upper outer left breast mass highly suspicious for breast cancer. There is skin thickening in the left breast as well. 08/19/2016 Left Breast Ultrasound ([facility]) 1. At 2:00 zone, there is a 2.7 cm mass. 2. Enlarged left axillary lymph node concerning for spread. (BI-RADS 5) 08/28/2016 Ultrasound-Guided Left Breast Biopsy ([facility] ) -Infiltrating ductal carcinoma. -ER 100%, NY 60%, Ki-67 25%, HER2/shoshana 1+ negative. Family History of Breast Cancer: No family history of breast, ovarian or prostate cancer. Personal History of Other Cancers: No. Reproductive History Menstrual Hx LMP: 1970 Having Periods: No Age at first period: Unknown Surgical Hx Surgery/Year: Total hysterectomy/1970 Hx Age of first live : 23 Number of live births: 2 Number of pregnancies: 2 Did you breastfeed: No If Yes, how long? N/A Oral Control: Yes Years: 7-8 years Infertility Medication: No Year/Med Name: N/A Menopausal Hx Age of last period: 33 Hormone Replacement Therapy: Yes Years: 44 (0954-4316) Review of Systems Unable to perform ROS: Dementia Constitutional: Negative for fever, chills, activity change, appetite change, fatigue and unexpected weight change. HENT: Negative for congestion, mouth sores, sore throat, tinnitus and trouble swallowing. Eyes: Negative for visual disturbance. Respiratory: Negative for cough, chest tightness, shortness of breath and wheezing. Cardiovascular: Negative for chest pain, palpitations and leg swelling. Gastrointestinal: Negative for nausea, vomiting, abdominal pain, diarrhea, constipation, blood in stool and abdominal distention. Genitourinary: Negative for dysuria, urgency, frequency and difficulty urinating. Musculoskeletal: Negative for back pain, joint swelling and arthralgias. Skin: Negative for rash. Neurological: Negative for [...] TABLET BY MOUTH DAILY AFTER BREAKFAST vit C,K-Gu-narzf-lutein-zeaxan (PRESERVISION AREDS 2) [id number] mg-unit- mg-mg cap Take 1 Tab by mouth twice daily. vitamins, multiple cap Take 1 Cap by mouth daily. Filed Vitals: 09/22/16 1545 Temp: 36.2 C (97.1 F) TempSrc: Oral Resp: 18 SpO2: 95% There is no weight on file to calculate BMI. Pain Score: Two Pain Loc: Generalized Pain Addressed: Patient declines intervention Patient Evaluated [...] and reactive to light. No scleral icterus. Ecchymosis left maxilla fascial area Neck: Normal range of motion. Cardiovascular: Normal rate, regular rhythm and normal heart sounds. Exam reveals no gallop and no friction rub. No murmur heard. Pulmonary/Chest: Effort normal and breath sounds normal. She has no wheezes. She has no rhonchi. She has no rales. Right breast exhibits no inverted nipple, no nipple discharge and no skin change. Left breast exhibits no inverted nipple , no nipple discharge and no skin change. Breasts are symmetrical. Abdominal: Soft. Normal appearance and bowel sounds are normal. She exhibits no distension and no mass. There is no tenderness. There is no guarding. Genitourinary: No breast bleeding. Musculoskeletal: Normal range of motion. She [...] and thought content normal. Vitals reviewed. Exam limited by patient's dementia. Previously examined by Dr. Heart. PATHOLOGY REPORT 09/15/2016 Final Diagnosis: A. Outside case [id number] (Date Collected: 08/28/2016) Breast, left, needle biopsy [...] tumor involves all biopsy cores. Histologic Grade ([place] Histologic Score): II/III Tubule Formation: 3 Nuclear Grade: 2 Mitotic Count (40x objective): 2 Total Ashley Score: 7/9 DCIS: Present Extent of DCIS (%): <5% Lymph-Vascular Invasion: Not identified Microcalcifications: Absent Tumor Necrosis: Focal Lymph Node Sampling: Not performed Prognostic markers: Per outside slides and report as following: ER: 100% NY: 60% Her2: 1+ (negative) Ki-67: 25% Time between tumor removal and placement into formalin < 1 hour: Unknown Fixation between 6-72 hours: Unknown Pathologic Staging: pTX NX MX The pathology stage assigned here should be regarded as provisional, as it reflects only current pathologic data and does not incorporate full knowledge of the patient's clinical status and/or prior pathology. Assessment and Plan: The patient is a 80 y.o. Postmenopausal female with the followin. Invasive ductal carcinoma, grade II. Clinical stage cT2 N1 MX. ER 100, NY 60 , HER2 negative (1+ by IHC) Ki-67 25%. [facility] outside path concurs. 2. Dementia 3. Legally bilind We have discussed the imaging and pathology results in detail with Ni and her son who accompanied her to the visit today, including the histologic subtype , tumor size, grade, mandy status and prognostic markers. We have outlined the general treatment principles related to early stage breast cancer including surgical resection, chemotherapy, radiation therapy and hormonal therapy. We have also discussed the potential for cure of a stage I, II, and III breast cancer in addition to the incurable although treatable nature of stage IV disease. Given the favorable features including strong ER/NY positivity and negative HER2 status we have recommended that the patient proceed with surgery. I have outlined the potential surgical options including lumpectomy followed by radiation versus mastectomy and the outcomes associated with either approach in terms of survival. She has been scheduled for surgery with Dr. Heart. We have discussed that the final stage will be determined by the surgical pathology results and we will make final treatment recommendations at that time. Accordingly we will also plan to discuss the risk of local and systemic recurrence as well as the benefits of adjuvant therapy pending the final stage as determined at the time of surgery. She is scheduled to have a left mastectomy with SLNB With Dr. Heart on . RTC 2 weeks post op I have spent 60 minutes with the patient today, 50 spent in education and counseling regarding the above. In the presence of Ann Marie Sanchez MD, I have taken down these notes, Ashley Feliz LPN, Tamiko. 09/22/2016 3:59 PM in this encounter Plan of Treatment Not on fileas of this encounter Visit Diagnoses Diagnosis Malignant neoplasm of left female breast, unspecified site of breast - Primary in this encounter
--- OUTSIDE RECORDS SUMMARY | 2016-11-22 10:18 | XMS REPORT | Encounter Summary ---
Author Author [facility] Organization [facility] Address Unknown Phone Unavailable Care Team Providers Care Beam Dyer Operator Name Role Phone PCP Unavailable Encounter Details Date Type Department Care Team Description 09/22/2016 Prep for Case Main Operating Room [facility] DO [address] [facility] [address] [place] [address] [address] [place] [address] [phone] Social History Tobacco Use Types Packs/Day Years [...]
--- OUTSIDE RECORDS SUMMARY | 2016-11-22 10:18 | XMS REPORT | Encounter Summary ---
Author Author [facility] Organization [facility] Address Unknown Phone Unavailable Care Team Providers Care Picker Tender Helper Name Role Phone PCP Unavailable Encounter Details Date Type Department Care Team Description 09/22/2016 Ancillary [facility] Brandon Heart DO Malignant neoplasm of [facility] Exam [address] left female breast, [address] [place] [address] [place] [address] breast (Primary Dx) [phone] Social History Tobacco Use Types Packs/Day Years [...]
--- OUTSIDE RECORDS SUMMARY | 2016-11-22 10:18 | XMS REPORT | Encounter Summary ---
Author Author [facility] Organization [facility] Address Unknown Phone Unavailable Care Team Providers Care Child Caregiver Name Role Phone PCP Unavailable Reason for Referral * Consult, Test & Treat (Urgent) Status Reason Specialty Diagnoses / Referred By Referred To Procedures Contact Contact New Request Specialty Cardiology Diagnoses [facility] Heart Marji, Bashar, MD Services Malignant DO [address] Required neoplasm of left [address] [place], [place] breast [place] [address] [address] female, estrogen [place] [address] Phone: receptor [place], [place] [phone] positive, [address] unspecified site Phone: of breast [phone] Pre-operative Fax: clearance [phone] Encounter Details Date Type Department Care Team Description 10/02/2016 Orders Only [facility] DO Malignant neoplasm of [place] [address] left breast in female, [address] [place] [address] estrogen receptor [address] [place] [address] [place], [place] [address] site of breast (Primary [phone] Dx);Pre-operative clearance Social History Tobacco Use Types Packs/Day Years [...] Progress Notes * Mitali Payne RN - 10/02/2016 3:22 PM CDT Information received from Dr. Day's office that patient missed her scheduled cardiology appointment with Dr. Lauren. Patient has been r/s to see Dr. Wilde locally and transportation has been arranged through her half-way. Records faxed to Dr. Wilde with referral for cardiac clearance. Appointment scheduled for 10/06/16. in this encounter Plan of Treatment Name Priority Associated Diagnoses Order Schedule AMB REFERRAL TO CARDIOLOGY Routine Malignant neoplasm of Ordered: 2016 left breast in female, estrogen receptor positive, unspecified site of breast Pre-operative clearance as of this encounter Visit Diagnoses Diagnosis Malignant neoplasm of left breast in female, estrogen receptor positive, unspecified site of breast - Primary Pre-operative clearance Preoperative examination, unspecified in this encounter
--- OUTSIDE RECORDS SUMMARY | 2016-11-22 10:18 | XMS REPORT | Encounter Summary ---
Author Author [facility] Organization [facility] Address Unknown Phone Unavailable Care Team Providers Care Color Expert Name Role Phone PCP Unavailable Encounter Details Date Type Department Care Team Description 09/22/2016 Documentation [facility] Karissa Morleya [facility] Exam [address] [place] [id number] Social History Tobacco Use Types Packs/Day Years [...] as of this encounter Progress Notes * Vianney Morley - 09/22/2016 4:47 PM CDT SW meet with pt, pt's son, daughter and daughter in law while at for consult appt with Dr. Rivers. SW educated them on SW role and services. Pt's son states he practices as DIRECT MAIL COORDINATOR(professional counselor)at [facility] in [place], [place]. Pt is a resident of [facility] in [place], [place]. Pt using a wheelchair. Per pt's family, she is legally blind and has dementia. Pt very tired after multiple appts today and family states she often gets irritated when she is out of her normal environment. Pt's daughter states spoke with surgeon today and family considering mastectomy. They state pt does not understand her dx or tx options. Pt's son is DPOA and copy scanned into medical record. They had no questions or concerns for SW on this date. SW contact information provided and they were encouraged to contact as needed. in this encounter Plan of Treatment Not on fileas of this encounter Visit Diagnoses Not on filein this encounter
--- OUTSIDE RECORDS SUMMARY | 2016-11-22 10:18 | XMS REPORT | Encounter Summary ---
Author Author [facility] Organization [facility] Address Unknown Phone Unavailable Care Team Providers Care Steel Worker Name Role Phone PCP Unavailable Reason for Visit * Reason Comments Heme/Onc Care Encounter Details Date Type Department Care Team Description 09/22/2016 [facility] [address] (Primary Dx) [address] [place] [address] [place] [address] [phone] Sherley Yuen, PAUL Social History Tobacco Use Types Packs/Day Years [...] as of this encounter Progress Notes * Sherley Rubio, PAUL - 09/22/2016 3:07 PM CDT Formatting of this note may be different from the original. LYMPHEDEMA DATASHEET-BASELINE DATE: 09/22/2016 PATIENT NAME: Ni Payne DATE OF : 1935 Enrollment Visit Type: Pre-Operative Patient Completed Questionnaire?: No BASELINE DIAGNOSTIC ASSESSMENT Diagnosis performed at [facility]? No Diagnostic Procedure: Core Biopsy: Ultrasound guided Surgery performed at [facility]? Yes Surgical Procedure: Axillary Node Dissection, SLN Mapping and Total Mastectomy : Plan: Pending BASELINE MEASUREMENTS Handedness: right handed Circumferential Measurements Bioimpedance Analysis RUE/LUE Unilateral: Hand: 17.0/18.0 17.0 Wrist: 15.0/15.2 8 cm: 20.0/19.0 16 cm: 21.0/22.0 Elbow cm: 23.0/23.0 8 cm: 26.0/25.0 16 cm: 28.0/27.0 24 cm: 29.0/28.0 Notes: Medical Team: Surgeon: Sly Plastic surgeon: Medical oncologist: Raghavendra Radiation oncologist: The patient presents today for pre-operative lymphedema education/evaluation. Ni is here with multiple family members. She is demented and does not verbally participate in teaching or the assessment process. Lives in a [facility], discussed with family sharing of this information with the [place] staff. Risk factors for the development of breast cancer treatment related lymphedema include: 1. Left mastectomy 2. Left ALND Lymphedema evaluation, teaching and care plan: Discussed with family in room, son, daughters and daughter in law 1. General review of Lymphedema pathophysiology in breast cancer patients. 2. Baseline assessment and measurements completed including: Bilateral arm circumference utilizing a Juzo tape measure and L-Dex Bioimpedence test. Ni is wheelchair bound, multiple contractures, unable to participate in assessment. 3. Signs and Symptoms to watch for once initial symptoms from surgery have resolved reviewed including but not limited to: achiness, tingling, discomfort , or increased warmth in the hand, arm, chest, breast, or underarm areas. Feelings of fullness or heaviness in the hand, arm, chest, breast, or underarm. Tightness or decreased flexibility in nearby joints, such as the shoulder, hand , or wrist. Trouble fitting the arm into a jacket or shirt sleeve that fit well before. Difficulty getting watches, rings, or bracelets on and off 4. Risk Factors: BMI, Obesity and weight gain. Optimal weight management is ideal for overall health. Discussed current BMI. Nutritional resources available if needed. Exercise when approved by surgeon maybe resumed. Exercise is beneficial as well as the benefit of upper body strengthening. Precautions regarding meticulous skin care reviewed. This includes but not limited to sunscreen, [place], gardening, manicures, cuts, scrapes, signs of infection. Avoidance of affect arm needlestick's, blood pressures, finger sticks and other applicable prevention discussion completed. 5. When to call the office: Sudden swelling or swelling that appears very quickly. Hand, arm, or other body parts seem to suddenly blow up may necessitate an evaluation. 6. RTC : PRN Written handouts regarding covered material provided at time of today's visit. Information regarding local support chapters including [place] also provided. Total time 40 minutes. Estimated counseling time 35 minutes regarding signs symptoms, risk factors, monitoring, when to contact us and follow up plan. Patient agreeable to follow up plan. Provided patient with contact information for follow up should questions or concerns arise. in this encounter Plan of Treatment Name Priority Associated Diagnoses Order Schedule PERFORM L-DEX Routine At risk for lymphedema Ordered: 09/22/2016 as of this encounter Visit Diagnoses Diagnosis At risk for lymphedema - Primary Other specified conditions influencing health status in this encounter
--- OUTSIDE RECORDS SUMMARY | 2016-11-22 10:18 | XMS REPORT | Encounter Summary ---
Author Author [facility] Organization [facility] Address Unknown Phone Unavailable Care Team Providers Care Statistical Machine Servicer Name Role Phone PCP Unavailable Encounter Details Date Type Department Care Team Description 09/22/2016 [facility] DO Encounter [facility] [address] [place] [address] [place] [address] [phone] Social History Tobacco Use Types Packs/Day Years [...] cap Take 1 Cap by mouth daily. estrogens, conjugated Take 0.625 mg by mouth 10/24/2016 (PREMARIN) 0.625 mg daily. tablet MORPHINE SULFATE Take by mouth twice 10/24/2016 (MORPHINE PO) daily. oxyCODONE (ROXICODONE) 5 Take 1 Tab by mouth every 30 Tab 0 201310/24/2016 mg tablet 4 hours as needed oxyCODONE SR (OXYCONTIN) Take 10 mg by mouth every 10/24/2016 10 mg tablet 12 hours spironolactone TAKE 1 TABLET BY MOUTH 90 Tab 0 09/06/2014 10/25/2016 (ALDACTONE) 25 mg tablet DAILY AFTER BREAKFAST vit Take 1 Tab by mouth twice 10/25/2016 C,A-By-ppctt-lutein-zeaxa daily. n (PRESERVISION AREDS 2) [phone] pd-beyu-pc-mg cap as of this encounter Plan of Treatment Not on fileas of this encounter Results * US BREAST TARGET LT (09/22/2016 10:30 AM) Specimen Performing Laboratory [facility] RAD RESULTS Impressions ACR BI-RADS Assessments: BIRAD 5-Highly suggestive of malignancy RECOMMENDATION: Sono guided biopsy of the left breast. Narrative Malignant neoplasm of left female breast, unspecified site of breast [id number] US BREAST TARGET LT: LEFT BREAST - SEPTEMBER 22, 2016 - Standard views. Technologist: Miriam Martinez, staff attorney Left breast ultrasound was performed. Imaging of [...] signed and approved by: George Winters M.D. [id number] Procedure Note Interface, Radiant Results - 09/22/2016 10:43 AM CDT Malignant neoplasm of left female breast, unspecified site of breast [id number] US BREAST TARGET LT: LEFT BREAST - SEPTEMBER 22, 2016 - Standard views. Technologist: Miriam Martinez, staff attorney Left breast ultrasound was performed. Imaging of [...] signed and approved by: George Winters M.D. [id number] IMPRESSION ACR BI-RADS Assessments: BIRAD 5-Highly suggestive of malignancy RECOMMENDATION: Sono guided biopsy of the left breast. in this encounter Visit Diagnoses Diagnosis Malignant neoplasm of left female breast, unspecified site of breast in this encounter
--- OUTSIDE RECORDS SUMMARY | 2016-11-22 10:18 | XMS REPORT | Encounter Summary ---
Author Author [facility] Organization [facility] Address Unknown Phone Unavailable Care Team Providers Care Chief Of Police Name Role Phone PCP Unavailable Encounter Details Date Type Department Care Team Description 09/22/2016 [facility] Brandon Heart DO Canceled (Error) Encounter [facility] [address] [place] [address] [place] [address] [phone] Social History Tobacco Use Types Packs/Day Years [...] twice acids (SEA-OMEGA) daily. 340/1000 mg capsule glucosamine(+) [...] mouth 800 mg tablet three times daily. morphine SR (MS CONTIN; Take 30 mg by mouth every ORAMORPH SR) 30 mg ER 12 hours tablet simvastatin (ZOCOR) 20 mg Take 1 Tab by mouth daily 90 Tab 01/02/2014 tablet with dinner. vitamins, multiple cap Take 1 Cap by mouth daily. estrogens, conjugated Take 0.625 mg by mouth 10/24/2016 (PREMARIN) 0.625 mg daily. tablet oxyCODONE (ROXICODONE) 5 Take 1 Tab by mouth every 30 Tab 0 201310/24/2016 mg tablet 4 hours as needed oxyCODONE SR (OXYCONTIN) Take 10 mg by mouth every 10/24/2016 10 mg tablet 12 hours spironolactone TAKE 1 TABLET BY MOUTH 90 Tab 0 09/06/2014 10/25/2016 (ALDACTONE) 25 mg tablet DAILY AFTER BREAKFAST vit Take 1 Tab by mouth twice 10/25/2016 C,T-Ki-wtppf-lutein-zeaxa daily. n (PRESERVISION AREDS 2) [phone] wo-krgd-zr-mg cap as of this encounter Plan of Treatment Not on fileas of this encounter Visit Diagnoses Diagnosis Malignant neoplasm of left female breast, unspecified site of breast in this encounter
--- OUTSIDE RECORDS SUMMARY | 2016-11-22 10:18 | XMS REPORT | Encounter Summary ---
Author Author [facility] Organization [facility] Address Unknown Phone Unavailable Care Team Providers Care Paint Line Supervisor Name Role Phone PCP Unavailable Encounter Details Date Type Department Care Team Description 09/22/2016 [facility] Brandon Heart DO Malignant neoplasm of Located Within [facility] [address] left female breast, [address] [place] [address] [place] [address] breast (Primary Dx) [phone] Social History Tobacco Use Types Packs/Day Years [...] left female breast, unspecified site of breast [id number] US BREAST TARGET LT: LEFT BREAST - SEPTEMBER 22, 2016 - Standard views. Technologist: Miriam Martinez, staff software engineer Left breast ultrasound was performed. Imaging of [...] signed and approved by: George Winters M.D. [id number] Procedure Note Interface, Radiant Results - 09/22/2016 10:43 AM CDT Malignant neoplasm of left female breast, unspecified site of breast [id number] US BREAST TARGET LT: LEFT BREAST - SEPTEMBER 22, 2016 - Standard views. Technologist: Miriam Martinez, staff software engineer Left breast ultrasound was performed. Imaging of [...] signed and approved by: George Winters M.D. [id number] IMPRESSION ACR BI-RADS Assessments: BIRAD 5-Highly suggestive of malignancy RECOMMENDATION: Sono guided biopsy of the left breast. in this encounter Visit Diagnoses Diagnosis Malignant neoplasm of left female breast, unspecified site of breast - Primary in this encounter
--- OUTSIDE RECORDS SUMMARY | 2016-11-22 10:18 | XMS REPORT | Encounter Summary ---
Author Author [facility] Organization [facility] Address Unknown Phone Unavailable Care Team Providers Care Washhouse Hand Name Role Phone PCP Unavailable Encounter Details Date Type Department Care Team Description 09/23/2016 [facility] DO [place] [address] [place] [address] [place] [address] [phone] Social History Tobacco Use Types Packs/Day Years [...] Progress Notes * Mitali Payne RN - 09/25/2016 4:26 PM CDT Spoke with Dr. Day's office. Dr. Day made referral for patient to Dr. Lauren in Cardiology. Dr. Day's office states they will call the patient and patients son with the appointment and referral information. Patient scheduled with Dr. Lauren on 10/02. Dr. Day will also f/u with patient following the cardiology consult. Patient records sent to Dr. Lauren. Surgery will remain scheduled for 10/23 but will require clearance from Dr. Lauren and Dr. Day. * Mitali Payne RN - 09/23/2016 9:[address] Day's office to discuss clearance for surgery for patient. Dr. Day's office also asked for a recommendation for a repatcher for the patient to see in [place], [place] for cardiac workup and clearance. Per Dr. Day's office, patients chart will be reviewed and they will call back with recommendations. in this encounter Plan of Treatment Not on fileas of this encounter Visit Diagnoses Not on filein this encounter
--- OUTSIDE RECORDS SUMMARY | 2016-11-22 10:18 | XMS REPORT | Encounter Summary ---
Author Author [facility] Organization [facility] Address Unknown Phone Unavailable Care Team Providers Care Barrer And Tacker Name Role Phone PCP Unavailable Encounter Details Date Type Department Care Team Description 09/22/2016 [facility] OAnn Marie Ram MD Encounter [facility] [address] [facility] [address] [place] [id number] [place] [id number] Social History Tobacco Use Types Packs/Day Years [...] Take 1 Tab by mouth twice 10/25/2016 C,N-Kf-guhyc-lutein-zeaxa daily. n (PRESERVISION AREDS 2) [phone] nc-whzo-mk-mg cap as of this encounter Plan of Treatment Not on fileas of this encounter Results * COMPREHENSIVE METABOLIC PANEL (09/22/2016 3:42 PM) [...] Performing Laboratory Blood [facility] [address] [place] [address] * CBC AND DIFF (09/22/2016 3:42 PM) [...] - 0.20 K/UL Specimen Performing Laboratory Blood [facility] [address] [address] in this encounter Visit Diagnoses Diagnosis Pre-op testing Preoperative examination, unspecified in this encounter
--- OUTSIDE RECORDS SUMMARY | 2016-11-22 10:19 | XMS REPORT | Encounter Summary ---
Author Author [facility] Organization [facility] Address Unknown Phone Unavailable Care Team Providers Care Supervisor Bridges [employer] Buildings Name Role Phone PCP Unavailable Encounter Details Date Type Department Care Team Description 09/11/2016 [facility], Radiologist Diagnosis unknown Orders [address] (Primary Dx) [place] [address] Social History Tobacco Use Types Packs/Day Years Used Date Former Smoker Cigarettes 2 20 Quit: 04/06/1992 Smokeless Tobacco: Never Used Alcohol Use Drinks/Week oz/Week Comments No Sex Assigned at Date Recorded Not on file as of this encounter Plan of Treatment Not on fileas of this encounter Results * MAMMO DIAG EXTERNAL IMAGING (08/28/2016 12:15 AM) Narrative This order has been auto finalized and does not contain a result. * US BREAST BIOPSY EXTERNAL IMAGING (08/28/2016) Narrative This order has been auto finalized and does not contain a result. * US BREAST EXTERNAL IMAGING (08/19/2016) Narrative This order has been auto finalized and does not contain a result. * US BREAST EXTERNAL IMAGING (06/01/2015 12:15 AM) Narrative This order has been auto finalized and does not contain a result. * MAMMO DIAG EXTERNAL IMAGING (06/01/2015) Narrative This order has been auto finalized and does not contain a result. * MAMMO SCREEN EXTERNAL IMAGING (08/27/2011) Narrative This order has been auto finalized and does not contain a result. in this encounter Visit Diagnoses Diagnosis Diagnosis unknown - Primary Other unknown and unspecified cause of morbidity or mortality in this encounter
--- OUTSIDE RECORDS SUMMARY | 2016-11-22 10:19 | XMS REPORT | Encounter Summary ---
Author Author [facility] Organization [facility] Address Unknown Phone Unavailable Care Team Providers Care Navy Material Inspector Name Role Phone PCP Unavailable Encounter Details Date Type Department Care Team Description 08/28/2016 [facility] [address] [place] [address] Social History Tobacco Use Types Packs/Day Years Used Date Former Smoker Cigarettes 2 20 Quit: 04/06/1992 Smokeless Tobacco: Never Used Alcohol Use Drinks/Week oz/Week Comments No Sex Assigned at Date Recorded Not on file as of this encounter Medications at Time [...] mouth 800 mg tablet three times daily. simvastatin (ZOCOR) 20 mg Take [...] Take 1 Tab by mouth twice 10/25/2016 C,D-Kj-grbzb-lutein-zeaxa daily. n (PRESERVISION AREDS 2) [phone] dq-yerm-gn-mg cap as of this encounter Plan of Treatment Not on fileas of this encounter Results * MAMMO DIAG EXTERNAL IMAGING (08/28/2016 12:15 AM) Narrative This order has been auto finalized and does not contain a result. in this encounter Visit Diagnoses Diagnosis Diagnosis unknown Other unknown and unspecified cause of morbidity or mortality in this encounter
--- OUTSIDE RECORDS SUMMARY | 2016-11-22 10:19 | XMS REPORT | Encounter Summary ---
Author Author [facility] Organization [facility] Address Unknown Phone Unavailable Care Team Providers Care Management Coordinator Name Role Phone PCP Unavailable Reason for Referral * Radiology Services Status Reason Specialty Diagnoses / Referred By Referred To Procedures Contact Contact No Auth Needed Radiology Diagnoses [facility] [place] [address] neoplasm of left [address] [place], [place] [address] [address] (HCC) [place] 2004 Phone: [place], [place] [phone] [place] [address] NM LYMPH NODE Phone: INJ RADIOTRACER [phone] Reason for Visit * Reason Comments Heme/Onc Care * Consult, Test & Treat (Routine) Status Reason Specialty Diagnoses / Referred By Referred To Procedures Contact Contact New Request General Surgery / Diagnoses Self, Referral Jaylon Heart DO Breast Clinic / STATISTICIAN/PJW/Left [address] Breast [facility] IDC/Self BLVD [place] 2004 Referral/[facility] [place], [place] e/MANSOOR: ER/UR [id number] P Phone: [place] [phone] MD-NEW PATIENT Encounter Details Date Type Department Care Team Description 09/22/2016 Office Visit [facility] DO Pre -op testing (Primary [place] [address] Dx);[place] [address] [place] left female breast, [address] [place] [address] [place] [address] breast;Malignant neoplasm [phone] of upper-outer quadrant of left female breast (HCC);Malignant neoplasm of left female breast (HCC) Social History Tobacco Use Types Packs/Day Years Used Date Former Smoker Cigarettes 2 20 Quit: 04/06/1992 Smokeless Tobacco: Never Used Alcohol Use Drinks/Week oz/Week Comments No Sex Assigned at Date Recorded Not on file as of this encounter Last Filed Vital Signs Vital Sign Reading Time Taken Blood Pressure 145/104 09/22/2016 1:25 PM CDT Pulse 66 09/22/2016 1:15 PM CDT Temperature 36.2 C (97.2 F) 09/22/2016 1:15 PM CDT Respiratory Rate 16 09/22/2016 1:15 PM CDT Oxygen Saturation 95% 09/22/2016 1:15 PM CDT Inhaled Oxygen - - Concentration [...] of this encounter Progress Notes * Jaylon Heart DO - 09/22/2016 4:24 PM CDT Formatting of this note may be different from the original. 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 Payne is a female who presented to the [facility] on at age 80 for evaluation of left breast cancer. Ms. Payne has dementia and her family was present. A left breast lump was palpated by a family member in June 2016. When it did not improve, she was sent for imaging. BREAST IMAGING: Mammogram: -- Bilateral diagnostic mammogram 08/19/16 ([place], [place]) revealed heterogeneously dense breast tissue. 2 [...] nodes. Ultrasound: -- Left breast ultrasound 08/19/16 ([place], [place]) revealed an irregular 2.7 cm mass [...] lymph nodes suspicious for mandy metastatic disease. Ultrasound- guided biopsy of the left axilla was recommended. [...] Dr. Sanchez REFERRED BY: Dr. Zeeshan Day Review of Systems patient has dementia and cannot verbalize ROS No Known Allergies The following medical/surgical/family/social history and the list of medications are current, as of 09/22/2016 Past Medical History Diagnosis Date Stroke (HCC) Ulcerative colitis (HCC) Diverticulitis A-fib (HCC) Arthritis Back pain On supplemental oxygen therapy Past Surgical History Procedure Laterality Date Pacemaker placement Hx hysterectomy Hx brain surgery 2013 craniotomy Thyroidectomy Colonoscopy Family History Problem Relation Age of Onset Stroke Mother Alzheimer's Mother Cancer Father Leukemia Cancer-Lung Father COPD Sister Cancer-Lung Sister Social History Social History Marital Status: Spouse Name: N/A Number of Children: N/A Years of Education: N/A Social History Main Topics Smoking status: Former Smoker -- 2.00 packs/day for 20 years Types: Cigarettes Quit date: 04/06/1992 Smokeless tobacco: Never Used Alcohol Use: No Drug Use: No Sexual Activity: Not Asked Other Topics Concern None Social History Narrative Objective: aspirin EC 81 mg tablet Take [...] TABLET BY MOUTH DAILY AFTER BREAKFAST vit C,Z-Kc-ipvnk-lutein-zeaxan (PRESERVISION AREDS 2) [id number] mg-unit- mg-mg cap Take 1 Tab by mouth twice daily. vitamins, multiple cap Take 1 Cap by mouth daily. Filed Vitals: 09/22/16 1315 09/22/16 1325 BP: 123/104 145/104 Pulse: 66 Temp: 36.2 C (97.2 F) TempSrc: Oral Resp: 16 SpO2: 95% There is no weight on file to calculate BMI. Pain Score: Two Pain Loc: Generalized Pain Addressed: N/A Eastern Cooperative Oncology Group performance status is 4, Completely disabled. Cannot carry on any selfcare. Totally confined to bed or chair. Physical Exam Pulmonary/Chest: Vitals reviewed. Exam done in wheelchair RIGHT BREAST EXAM: Breast: No palpable masses Skin Erythema: No Attachment of Overlying Skin: No Peau d' orange: No Chest Wall Attachment: No Nipple Inversion: No Nipple Discharge: No LEFT BREAST EXAM: Breast: 4 cm mass at 2:00 Skin Erythema: No Attachment of Overlying Skin: No Peau d' orange: No Chest Wall Attachment: No Nipple Inversion: No Nipple Discharge: No RIGHT MANDY BASIN EXAM: Axillary: negative Infraclavicular: negative Supraclavicular: negative LEFT MANDY BASIN EXAM: Axillary: positive Infraclavicular: negative Supraclavicular: negative Constitutional: Well-developed and well-nourished. No acute distress. HEENT: Head: Normocephalic and atraumatic. Eyes: No discharge. No scleral icterus. Cardiovascular: Normal rate, regular rhythm and normal heart sounds. No murmur or gallop. Pacemaker present Pulmonary/Chest: Effort normal and breath sounds normal. No respiratory distress. No wheezes. No rales. Musculoskeletal: Decreased range of motion. Lower extremity edema. In wheelchair Neurological: No cranial nerve deficit. dementia Skin: Warm and dry. No rash noted. No erythema. No pallor. 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 Discussed options of BCT versus mastectomy. Similar risk of local/regional recurrence with BCT and mastectomy, with no survival benefit for mastectomy. Discussed that due to the amount of disease present Ms. Payne needs a mastectomy. She is also not a candidate for radiation due to her dementia and having a left sided pacemaker. She had at least 4 abnormal left axillary lymph nodes. We discussed that our recommendation would be to obtain biopsy prior to surgery. Ms. Payne is in a fdc two hours from [place] and does not have good transportation. We will plan a SLNB at the time of mastectomy to evaluate for mandy metastasis and an ALND if a SLN is found to be positive. Baseline arm measurements were taken today for lymphedema. Ms. Payne will need cardiac clearance prior to surgery. She has an appointment with Dr. Zora Sosa today for medical oncology. She is to return to the clinic 1-2 weeks post op. She was given ample time to ask questions all of which were answered to her satisfaction. 1. Left total mastectomy/SLNB/pALND 2. Continue follow up with Dr. Sanchez 3. Continue follow up with Lymphedema Clinic 4. Cardiac clearance 5. RTC 1-2 weeks post op Martha Payne PA-C ATTESTATION I personally interviewed and examined the patient. I have reviewed the history , physical, impression and plan outlined by the [employer]ician [employer]. The patient presents with (HPI) a new diagnosis of left IDC, On examination there is The right breast has no palpable masses, skin changes, or nipple changes. There is no draining mandy basin adenopathy. The left breast 4cm palpable mass in the UOQ, there are no skin or nipple changes. There is a palpable, mobile axillary node. 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 We discussed the need for a multidisciplinary approach to breast cancer treatment with local and systemic therapy. We reviewed her imaging results including the additional targeted imaging. We then discussed local treatment options in detail. Discussed options of BCT versus mastectomy. Similar risk of local/regional recurrence with BCT and mastectomy, with no survival benefit for mastectomy. Ms. Payne has a pacemaker on the left chest wall. This needs to be taken into consideration as it would need moved for radiation for BCT. Due to the size, a significant seroma could occur with a lumpectomy. Based on these factors a mastectomy is recommended. She also has multiple suspicious axillary lymph nodes. Rather than perform a percutaneous biopsy to assess, we discussed moving forward with surgery and performing a SLNB at the time of mastectomy with an ALND if nodes are found to be positive for metastasis. She gets very fatigued and agitated with procedures. This approach would allow for the appropriate assessment and treatment without additional preoperative procedures. Her son expressed his understanding and is in agreement with this plan. We also discussed not performing surgery at this time. Although an AI could very feasibly be started if she would become resistant and the tumor would progress she could develop skin ulceration or UE lymphedema with additional mandy disease burden. Her state of health may be far worse at that unknown time which could limit surgical options. He again expressed his understanding. Based on the discussion today we are in agreement that total mastectomy, SLNB, pALND would be the best local management. Ms. Payne will be meeting with Dr. Sanchez today to discuss systemic therapy. All were given ample time to ask questions all of which were answered to their satisfaction. 1. Left total mastectomy/SLNB/pALND 2. Continue follow up with Dr. Sanchez 3. Continue follow up with Lymphedema Clinic 4. Cardiac clearance 5. RTC 1-2 weeks post op Staff name: JAYLON HEART, Date: 09/23/2016 * Mitali Payne RN - 09/22/2016 2:44 PM CDT Spoke with Ms. Payne and patients son regarding LEFT TM, IOLM SLNB pALND and the confirmed surgery date of 10/24/16. The patient was informed that she would receive a call from the surgery department the day prior to surgery to confirm time of arrival. The patient was given detailed instructions about where and when to check in the day of surgery. A pre op packet describing the surgical procedure and pre and post operative instructions has been given to the patient and reviewed in detail. Informed pt that we will see her 1-2 weeks post op to review final pathology report in detail and assess surgical recovery. The patient has been informed of the medications that need to be stopped 7-10 days prior to surgery and the NPO requirements starting at midnight the night before surgery. Also informed that a electric lift truck driver will need to accompany pt due to the influence of anesthesia including narcotics post procedure. Informed pt that the PAT department will call to discuss lab work, medication review, health history, anesthesia/ surgical history, and any other additional recommended testing for clearance for surgery. The patient verbalized understanding of the information given. The patient was encouraged to call with any questions or concerns. in this encounter Plan of Treatment Not on fileas of this encounter Results * NM LYMPH NODE INJ RADIOTRACER (10/24/2016 [...] performed in the operative suite by Dr. Heart. Please see separately dictated operative report for [...] performed in the operative suite by Dr. Heart. Please see separately dictated operative report for [...] Diehl M.D. on 10/24/2016 11:54 AM. * COMPREHENSIVE METABOLIC PANEL (09/22/2016 3:42 PM) [...] Specimen Performing Laboratory Blood MAIN LAB [address] [place] [address] * CBC AND DIFF (09/22/2016 3:42 PM) [...] - 0.20 K/UL Specimen Performing Laboratory Blood [facility] [address] [place] [id number] in this encounter Visit Diagnoses Diagnosis Pre-op testing - Primary Preoperative examination, unspecified Malignant neoplasm of left female breast, unspecified site of breast Malignant neoplasm of upper-outer quadrant of left female breast (HCC) Malignant neoplasm of upper-outer quadrant of female breast in this encounter
--- OUTSIDE RECORDS SUMMARY | 2016-11-22 10:19 | XMS REPORT | Encounter Summary ---
Author Author [facility] Organization [facility] Address Unknown Phone Unavailable Care Team Providers Care Still Cleaner Name Role Phone PCP Unavailable Encounter Details Date Type Department Care Team Description 09/08/2016 Orders Only The [facility] Brandon Heart DO Malignant neoplasm of Cancer [facility] - [facility] Exam [address] left female breast, [address] [place] 2003 [place] [address] [place] [address] breast (Primary Dx) [phone] Social History Tobacco Use Types Packs/Day Years [...]
--- OUTSIDE RECORDS SUMMARY | 2016-11-22 10:19 | XMS REPORT | Encounter Summary ---
Author Author [facility] Organization [facility] Address Unknown Phone Unavailable Care Team Providers Care Student Officer Name Role Phone PCP Unavailable Encounter Details Date Type Department Care Team Description 08/28/2016 Hospital [facility] Radiology [address] [place] [address] Social History Tobacco Use Types Packs/Day Years [...] Take 1 Tab by mouth twice 10/25/2016 C,C-Uv-jvnqq-lutein-zeaxa daily. n (PRESERVISION AREDS 2) [phone] qz-afcm-iz-mg cap as of this encounter Plan of Treatment Not on fileas of this encounter Results * US BREAST BIOPSY EXTERNAL IMAGING (08/28/2016) Narrative This order has been auto finalized and does not contain a result. in this encounter Visit Diagnoses Diagnosis Diagnosis unknown Other unknown and unspecified cause of morbidity or mortality in this encounter
--- OUTSIDE RECORDS SUMMARY | 2016-11-22 10:19 | XMS REPORT | Encounter Summary ---
Author Author [facility] Organization [facility] Address Unknown Phone Unavailable Care Team Providers Care Medical Anthropologist Name Role Phone PCP Unavailable Reason for Visit * Reason Comments Navigation Assessment Encounter Details Date Type Department Care Team Description 09/17/2016 Telephone [facility] Brandon Heart DO Navigation Assessment Cancer Center - Exam [address] [place] [address] [place] [address] [phone] Social History Tobacco Use Types Packs/Day Years Used Date Former Smoker Cigarettes 2 20 Quit: 04/06/1992 Smokeless Tobacco: Never Used Alcohol Use Drinks/Week oz/Week Comments No Sex Assigned at Date Recorded Not on file as of this encounter Plan of Treatment Not on fileas of this encounter Visit Diagnoses Not on filein this encounter
--- OUTSIDE RECORDS SUMMARY | 2016-11-22 10:19 | XMS REPORT | Encounter Summary ---
Author Author [facility] Organization [facility] Address Unknown Phone Unavailable Care Team Providers Care Cage Unloader Name Role Phone PCP Unavailable Encounter Details Date Type Department Care Team Description 09/12/2016 [facility] Jaylon Heart DO Malignant neoplasm of Encounter [address] [place] [place] [address] MS 2003 [place] [address] ([facility]) [phone] Social History Tobacco Use Types Packs/Day Years [...] Take 1 Tab by mouth twice 10/25/2016 C,P-Nn-nwijp-lutein-zeaxa daily. n (PRESERVISION AREDS 2) [phone] iy-yymu-jw-mg cap as of this encounter Plan of Treatment Not on fileas of this encounter Results * PATHOLOGY REPORTS FROM OUTSIDE SCAN (09/25/2016 7:26 AM) Narrative Ordered by an unspecified provider. * OUTSIDE PATHOLOGY CONSULT (09/12/2016 2:22 PM) Component Value Ref Range PATHOLOGY REPORT [facility] [email or web address] Radhika Rankin MD, PhD, Director of Anatomic Pathology Department of Pathology and Laboratory Medicine [address] [place] [id number] Surgical Pathology Office: [phone] PATHOLOGY CONSULTATION NAME: NI PAYNE SURG PATH #: [id number] MR #: [id number] ALT ID #: LOCATION: [facility] DATE OF PROCEDURE: 09/12/2016 AGE: 80 SEX: F DATE RECEIVED: 09/12/2016 : 1935 TIME RECEIVED: 14:22 PHYSICIAN: JAYLON HEART DO DATE OF REPORT: 09/15/2016 COPY TO: DATE OF PRINTIN09/15/2016 ################################################## ###################### Final Diagnosis: A. Outside case [id number] (Date Collected: 08/28/2016) Breast, left, needle biopsy [...] 2 Mitotic Count (40x objective): 2 Total [place] Score: 7/9 DCIS: Present Extent of DCIS (%): <5% Lymph-Vascular Invasion: Not identified Microcalcifications: Absent Tumor Necrosis: Focal Lymph Node Sampling: Not performed Prognostic markers: Per outside slides and report as following: ER: 100% MT: 60% Her2: 1+ (negative) Ki-67: 25% Time [...] indicated in this report. +++Electronically Signed Out+++ pa/09/12/2016 Interpreted by: Radhika Rankin MD, Attending Physician ################################################## ###################### Material Received: A: Outside Slides x5 [id number], [facility] [address] [place] [address] History: 80-year-old female with a clinical history of breast cancer. Gross Description: A. Received are five (5) outside slides labeled "[id number]", and a properly identified surgical pathology report from [facility], [address] [place], [place] [address]Lccrv: [phone]; . paj/09/12/2016 If immunohistochemical stains and/or in situ hybridization are cited in this report, the performance characteristics were determined by the Department of Pathology and Laboratory Medicine of the [facility] ([employer]) in compliance with CLIA'88 regulations. Some of these tests rely on the use of "analyte specific reagents" and are subject to specific labeling requirements by the FDA. Known positive and negative control tissues demonstrate appropriate staining. This testing was developed by the Department of Pathology and Laboratory Medicine of the [facility]. It has not been cleared or approved by the FDA. The FDA has determined that such clearance or approval is not necessary. Specimen Performing Laboratory [facility] RESULTS in this encounter Visit Diagnoses Not on filein this encounter Admitting Diagnoses Diagnosis Malignant neoplasm of unspecified site of unspecified female breast (HCC) Malignant neoplasm of unspecified site of unspecified female breast in this encounter
--- NOTE | 2016-11-22 10:58 | ED Fall/Injury ---
General Chief Complaint: Trauma-Non Activation Stated Complaint: FALL Nursing Triage Note: Pt apparently had fallen x 3 that last 2-3 days. Concerned about alerted mental status. Source: patient Exam Limitations: no limitations History of Present Illness Time seen by provider: 10:25 Initial Comments Here with report of falling at least 3 times over the last 2-3 days. Patient has change in behavior that is different than she normally is and that she seems to be confused and is complaining of pain but not necessarily able to answer where the pain is. This seems to be emanating from the left hip. She does have a nosebleed on the right side from blowing her nose just prior to EMS arrival today. Apparently she fell or reports falling today but this was unwitnessed. No loss of consciousness reported but also unsure as this was unwitnessed. She apparently has hit her head a few times in the last couple of days. Patient is definitely confused but follows commands. Occurred: this morning (unknown time but within the last few hours) Injuries/Pain Location: head, pelvis Context: unknown Loss of Consciousness: unsure Modifying Factors: Improves With Immobilization, Worse With Movement Associated Symptoms (Fall): No Abdominal Pain, No Chest Pain, Confusion, Headache, No Muscle Spasms, No Nausea/Vomiting, No Neck Pain, No Shortness of Air Allergies and Home Medications Allergies Coded Allergies: NKANo Known Allergies (Unverified Allergy, Mild, 05/29/09) Home Medications Amoxicillin 500 Mg Capsule, 500 MG PO TID, #21 Prescribed by: VERONICA SORIANO on 05/02/16 0948 Calcium/Vitamin D 1 Tab Tablet, 600 MG PO BID, (Reported) Carvedilol 3.125 Mg Tablet, 1 EACH PO BID, (Reported) Citalopram Hydrobromide 20 Mg Tablet, 1 EACH PO DAILY, (Reported) Ferrous Sulfate 325 Mg Tablet, 325 MG PO BID, (Reported) Magnesium Chloride 64 Mg Tablet.sa, 64 MG PO DAILY, (Reported) Meloxicam 7.5 Mg Tablet, 1 EACH PO DAILY PRN for elbow swelling/pain, #30 Ref 0 Prescribed by: MINERVA OTOOLE on 05/05/14 2302 Mesalamine 800 Mg Tablet.dr, 800 MG PO TID, (Reported) [place] 3 Polyunsat Fatty Acids 1,000 Mg Cap, 1,000 MG PO DAILY, (Reported) Oxycodone Hcl 10 Mg Tab, 10 MG PO BID, (Reported) Potassium Chloride 20 Meq Tab, 20 MEQ PO TID, (Reported) Pyridoxine/Melatonin 1 Tab Tablet, 3 MG PO HS, (Reported) Simvastatin 20 Mg Tablet, 20 MG PO HS, (Reported) [Glucosamine Otc] , 1,000 MG PO BID, (Reported) [Preservision Eye Vit] , 1 TAB PO BID, (Reported) Constitutional: see HPI, No fever Eyes: No Symptoms Reported Ears, Nose, Mouth, Throat: see HPI, epistaxis Respiratory: no symptoms reported Cardiovascular: no symptoms reported Gastrointestinal: no symptoms reported, No nausea, No vomiting Genitourinary: no symptoms reported Musculoskeletal: see HPI, joint pain, joint swelling, muscle pain Skin: no symptoms reported Psychiatric/Neurological: No Symptoms Reported All Other Systems Reviewed Negative Unless Noted: Yes Past Hdlwzex-Ybljwh-Ujywkb Hx Patient Social History Alcohol Use: Denies Use Recreational Drug Use: No Smoking Status: Former Smoker Type Used: Cigarettes Recent Foreign Travel: No Contact w/Someone Who Travel: No Recent Infectious Disease Expo: No Recent Hopitalizations: No Immunizations Up To Date Tetanus Booster (TDap): Unknown Date of Pneumonia Vaccine: May 07, 2009 Date of Influenza Vaccine: Jan 05, 2016 Seasonal Allergies Seasonal Allergies: Yes Surgeries HX Surgeries: Yes (BRAIN SURGERY,KNEE SURGERY, FOOT SURGERY ; HYST/BSO) Surgeries: Appendectomy, Hysterectomy, Neurological, Oophorectomy, Orthopedic, Pacemaker, Thyroidectomy Respiratory Hx Respiratory Disorders: Yes (HYPOXIA--WEARS O2 AT 2-3L/NC CONTINUOUSLY) Respiratory Disorders: Pneumonia Cardiovascular Hx Cardiac Disorders: Yes (PULMONARY HTN, PACEMAKER) Cardiac Disorders: Atrial Fibrillation, Chronic Edema/Swelling, High Cholesterol, Hypertension Neurological Hx Neurological Disorders: Yes (HX OF INTRACRANIAL BLEED) Neurological Disorders: Dementia, Stroke Reproductive System Hx Reproductive Disorders: No PUNCHER History: Hysterectomy Genitourinary Hx Genitourinary Disorders: No Gastrointestinal Hx Gastrointestinal Disorders: Yes (ULCERATIVE COLITIS. ) Gastrointestinal Disorders: Colitis, Gastrointestinal Bleed, Diverticulosis Musculoskeletal Hx Musculoskeletal Disorders: Yes (CHRONIC NECK PAIN , SPINAL STENOSIS; OELCRANON BURSITIS) Musculoskeletal Disorders: Osteoporosis, Arthritis, Chronic Back Pain Endocrine Hx Endocrine Disorders: No HEENT HX ENT Disorders: No Cancer Hx Cancer: No (BENIGN SKIN LESIONS) Psychosocial Hx Psychiatric Problems: No Integumentary HX Skin/Integumentary Disorder: Yes (BENIGN SKIN LESIONS) Blood Transfusions Hx Blood Disorders: No Reviewed Nursing Assessment Reviewed/Agree w Nursing PMH: Yes Family Medical History Significant Family History: No Pertinent Family Hx, Stroke Physical Exam Vital Signs Vital Sign - Last 12Hours 11/22/16 10:26 Temp 97.2 Pulse 70 Resp 16 B/P (MAP) 174/86 Pulse Ox 97 Capillary Refill : Less Than 3 Seconds General Appearance: WD/WN, no apparent distress HEENT: PERRL/EOMI, TMs normal, pharynx normal, other (old blood in the right nare without active bleeding noted.) Neck: full range of motion, supple Cardiovascular: regular rate, rhythm, no murmur Respiratory: lungs clear, normal breath sounds Gastrointestinal: non tender, soft Back: normal inspection, no CVA tenderness, no vertebral tenderness Extremities: pelvis stable, other (tenderness noted to the left proximal hip femur area. Pain with rotation of left leg.) Neurologic/Psychiatric: alert, other (somewhat confused but oriented to self and follows commands.) Skin: warm/dry, ecchymosis (left mid rib margin on the posterior aspect and left hip) Smiley Coma Score Best Eye Response: (4) Open Spontaneously Best Verbal Response: (4) Confused Conversation Best Motor Response: (6) Obeys Commands Laceration Repair : Suture Size: 4-0 Progress/Results/Core Measures Results/Orders Lab Results Laboratory Tests Test 11/22/16 11:15 11/22/16 11:25 Range/Units Urine Color YELLOW Urine Clarity CLEAR Urine pH 7 5-9 Urine Specific [place] 1.005 L 1.016-1.022 Urine Protein NEGATIVE NEGATIVE Urine Glucose (UA) NEGATIVE NEGATIVE Urine Ketones NEGATIVE NEGATIVE Urine Nitrite NEGATIVE NEGATIVE Urine Bilirubin NEGATIVE NEGATIVE Urine Urobilinogen NORMAL NORMAL MG/DL Urine Leukocyte Esterase 1+ H NEGATIVE Urine RBC (Auto) NEGATIVE NEGATIVE Urine RBC NONE /HPF Urine WBC 0-2 /HPF Urine Squamous Epithelial Cells 0-2 /HPF Urine Crystals PRESENT H /LPF Urine Amorphous Sediment FEW ALVARO URATES H /LPF Urine Bacteria NEGATIVE /HPF Urine Casts NONE /LPF Urine Mucus NEGATIVE /LPF Urine Culture Indicated NO White Blood Count 5.7 4.3-11.0 10^3/uL Red Blood Count 3.63 L 4.35-5.85 10^6/uL Hemoglobin 11.3 L 11.5-16.0 G/DL Hematocrit 33 L 35-52 % Mean Corpuscular Volume 92 80-99 FL Mean Corpuscular Hemoglobin 31 25-34 PG Mean Corpuscular Hemoglobin Concent 34 32-36 G/DL Red Cell Distribution Width 13.4 10.0-14.5 % Platelet Count 190 130-400 10^3/uL Mean Platelet Volume 9.7 7.4-10.4 FL Neutrophils (%) (Auto) 81 H 42-75 % Lymphocytes (%) (Auto) 9 L 12-44 % Monocytes (%) (Auto) 9 0-12 % Eosinophils (%) (Auto) 0 0-10 % Basophils (%) (Auto) 0 0-10 % Neutrophils # (Auto) 4.6 1.8-7.8 X 10^3 Lymphocytes # (Auto) 0.5 L 1.0-4.0 X 10^3 Monocytes # (Auto) 0.5 0.0-1.0 X 10^3 Eosinophils # (Auto) 0.0 0.0-0.3 10^3/uL Basophils # (Auto) 0.0 0.0-0.1 10^3/uL Sodium Level 128 L 135-145 MMOL/L Potassium Level 2.6 L 3.6-5.0 MMOL/L Chloride Level 82 L 98-107 MMOL/L Carbon Dioxide Level 32 21-32 MMOL/L Anion Gap 14 5-14 MMOL/L Blood Urea Nitrogen 16 7-18 MG/DL Creatinine 1.41 H 0.60-1.30 MG/DL Estimat Glomerular Filtration Rate 36 BUN/Creatinine Ratio 11 Glucose Level 108 H 70-105 MG/DL Calcium Level 8.8 8.5-10.1 MG/DL Total Bilirubin 1.0 0.1-1.0 MG/DL Aspartate Amino Transf (AST/SGOT) 52 H 5-34 U/L Alanine Aminotransferase (ALT/SGPT) 16 0-55 U/L Alkaline Phosphatase 114 40-136 U/L C-Reactive Protein High Sensitivity 0.82 H 0.00-0.50 MG/DL Total Protein 6.6 6.4-8.2 GM/DL Albumin 3.6 3.2-4.5 GM/DL My Orders Orders - VERONICA SORIANO MD Ct Head/Cervical Spine Wo (11/22/16 10:33) Cbc With Automated Diff (11/22/16 10:33) Comprehensive Metabolic Panel (11/22/16 10:33) Hs C Reactive Protein (11/22/16 10:33) Ua Culture If Indicated (11/22/16 10:33) Chest 1 View, Ap/Pa Only (11/22/16 10:33) Pelvis With Left Hip 2-3 Views (11/22/16 10:33) Saline Lock/Iv-Start (11/22/16 12:00) Fentanyl Injection (Sublimaze Injection (11/22/16 12:00) Ns Iv 500 Ml (Sodium Chloride 0.9%) (11/22/16 12:00) Medications Given in ED Current Medications Medications Dose Ordered Sig/Juan Route Start Time Stop Time Status Last Admin Dose Admin Sodium Chloride 500 ml @ 0 mls/hr Q0M ONCE IV 11/22/16 12:00 11/22/16 12:01 DC 11/22/16 12:29 500 MLS/HR Vital Signs/I&O Vital Sign - Last 12Hours 11/22/16 11/22/16 10:26 12:29 Temp 97.2 97.2 Pulse 70 Resp 16 B/P (MAP) 174/86 Pulse Ox 97 Blood Pressure Mean: 115 Progress Note : Progress Note Seen and evaluated. IV, labs, UA, CT head and neck ordered, chest x-ray, pelvic x-ray and left hip x-ray ordered. Normal saline 500 mL bolus and fentanyl 50 g IV ordered. Monitor patient. Patient remains confused. I did discuss the case with Dr. Fulton at 1310 and she will see the patient in the ER for likely admission. 1320: Dr. Fulton will admit the patient, observation status. Patient family and patient agree with plan. Diagnostic Imaging Diagonstic Imaging: Xray Plain Films/CT/US/NM/MRI: chest Comments NAME: ELSY ROSA MED REC#: [id number] PT STATUS: REG ER : 1935 PHYSICIAN: VERONICA SORIANO MD ADMIT DATE: 11/22/16/ER Signed Date of Exam: 11/22/16 CHEST 1 VIEW, AP/PA ONLY INDICATION: Unresponsive. Study compared to 11/22/2016 FINDINGS: Rightward rotation limits assessment of the cardio mediastinal and hilar contours. The heart is at least moderately enlarged and is not definitely changed from prior. No convincing evidence for abnormal vascular distention and no focal infiltrate, effusion or pneumothorax. IMPRESSION: Enlargement of the heart redemonstrated. Rightward rotation substantially limits exam sensitivity. No convincing evidence for an acute abnormality. Dictated by: Dictated on workstation # [id number] Dict: 11/22/16 1206 Trans: 11/22/16 1209 Interpreted by: GRETCHEN KWONG Electronically signed by: GRETCHEN KWONG 11/22/16 1209 Diagonstic Imaging: Xray Plain Films/CT/US/NM/MRI: pelvis, hip Comments NAME: ELSY ROSA [facility] [employer] REC#: [id number] PT STATUS: REG ER : 1935 PHYSICIAN: VERONICA SORIANO MD ADMIT DATE: 11/22/16/ER Signed Date of Exam: 11/22/16 PELVIS WITH LEFT HIP 2-3 VIEWS INDICATION: Fall, pain. FINDINGS: The bones appear demineralized and underlying osteopenia or osteoporosis is suspected. A fracture however could not be identified. The femoral heads are directed into the acetabula. The left femoral neck and trochanters unremarkable. The obturator rings symphysis and SI joints nonacute. IMPRESSION: Likely bony demineralization without an appreciable fracture or dislocation. Dictated by: Dictated on workstation # [id number] Dict: 11/22/16 1207 Trans: 11/22/16 1231 Interpreted by: GRETCHEN KWONG Electronically signed by: GRETCHEN KWONG 11/22/16 1231 Diagonstic Imaging: CT Plain Films/CT/US/NM/MRI: c-spine, head Comments NAME: ELSY ROSA [employer] REC#: [id number] PT STATUS: REG ER : 1935 PHYSICIAN: VERONICA SORIANO MD ADMIT DATE: 11/22/16/ER Signed Date of Exam: 11/22/16 CT HEAD/CERVICAL SPINE WO PROCEDURE: CT head and CT cervical spine without contrast. TECHNIQUE: Multiple contiguous axial images were obtained through the brain and cervical spine without the use of intravenous contrast. Sagittal and coronal reformations through the cervical spine were then performed. INDICATION: Fall. COMPARISON: 06/22/2016. FINDINGS: CT head: A left temporoparietal craniectomy and flap appeared unchanged from the prior. The remaining calvarium appeared unremarkable. Mastoids clear. There is some lobular membrane thickening in the right maxillary sinus, chronic. No paranasal sinus air-fluid level. Cerebral cortical atrophy and chronic white matter disease is stable. There is no intracranial hemorrhage. No findings of focal or generalized edema. No change from prior. CT cervical spine: Cervical body heights are maintained. There are degenerative disc and endplate changes with facet arthrosis, chronic. No cervical fracture or dislocation. IMPRESSION: CT head: Stable postoperative and chronic findings, no hemorrhage or acute pathology. No change. CT cervical spine: Degenerative changes of spondylosis and facet arthrosis without fracture or traumatic malalignment. Dictated by: Dictated on workstation # [id number] Dict: 11/22/16 1156 Trans: 11/22/16 1209 Interpreted by: GRETCHEN KWONG Electronically signed by: GRETCHEN KWONG 11/22/16 1209 Departure Communication Time/Spoke to Admitting Phy: 13:10 Impression Impression: Primary Impression: Hyponatremia Additional Impressions: Hypokalemia Dehydration Disposition: ADMITTED INPATIENT Condition: Stable Admissions Decision to Admit Reason: Admit from ER (General) Decision to Admit/Date: Nov 22, 2016 Time/Decision to Admit Time: 13:10 Departure-Patient Inst. Referrals: MINERVA NEAL DO (PCP/Family) Primary Care Physician VERONICA SORIANO MD Nov 22, 2016 10:58
[2016-11-22 11:20] LABS: BILIRUBIN,URINE NEGATIVE (NEGATIVE); KETONES,URINE NEGATIVE (NEGATIVE); LEUKOCYTE ESTERASE ,URINE 1+ (NEGATIVE); NITRITE,URINE NEGATIVE (NEGATIVE); PH,URINE 7 (5-9); PROTEIN,URINE NEGATIVE (NEGATIVE); UROBILINOGEN,URINE NORMAL (NORMAL)
[2016-11-22 11:31] LABS: SQUAMOUS EPITHELIAL CELL,UR 0-2 /HPF; WBC,URINE 0-2 /HPF
[2016-11-22 11:34] LABS: BASOPHILS % (AUTO) 0 % (0-10); EOSINOPHILS % (AUTO) 0 % (0-10); LYMPHOCYTES # (AUTO) 0.5 X 10^3 (1.0-4.0); LYMPHOCYTES % (AUTO) 9 % (12-44); MEAN CORPUSCULAR HEMOGLOBIN 31 PG (25-34); MEAN CORPUSCULAR HGB CONC 34 G/DL (32-36); MEAN CORPUSCULAR VOLUME 92 FL (80-99); MEAN PLATELET VOLUME 9.7 FL (7.4-10.4); MONOCYTES # (AUTO) 0.5 X 10^3 (0.0-1.0); MONOCYTES % (AUTO) 9 % (0-12); NEUTROPHILS # (AUTO) 4.6 X 10^3 (1.8-7.8); NEUTROPHILS % (AUTO) 81 % (42-75); PLATELET COUNT 190 10^3/uL (130-400); RED BLOOD COUNT 3.63 10^6/uL (4.35-5.85); RED CELL DISTRIBUTION WIDTH 13.4 % (10.0-14.5); WHITE BLOOD COUNT 5.7 10^3/uL (4.3-11.0)
[2016-11-22 11:53] LABS: ALBUMIN 3.6 GM/DL (3.2-4.5); CALCIUM 8.8 MG/DL (8.5-10.1); CREATININE SERUM 1.41 MG/DL (0.60-1.30); POTASSIUM 2.6 MMOL/L (3.6-5.0); TOTAL PROTEIN 6.6 GM/DL (6.4-8.2); hs C REACTIVE PROTEIN 0.82 MG/DL (0.00-0.50)
[2016-11-22] MEDS ORDERED: NS IV 500 ML 500 ML IV ONE (12:00)
[2016-11-22] MEDS ORDERED: fentaNYL INJECTION 100 MCG/2 ML AMP IVP STA (12:00)
--- NOTE | 2016-11-22 12:06 | Diagnostic Imaging Report ---
PROCEDURE: CT head and CT cervical spine without contrast. TECHNIQUE: Multiple contiguous axial images were obtained through the brain and cervical spine without the use of intravenous contrast. Sagittal and coronal reformations through the cervical spine were then performed. INDICATION: Fall. COMPARISON: 06/22/2016. FINDINGS: CT head: A left temporoparietal craniectomy and flap appeared unchanged from the prior. The remaining calvarium appeared unremarkable. Mastoids clear. There is some lobular membrane thickening in the right maxillary sinus, chronic. No paranasal sinus air-fluid level. Cerebral cortical atrophy and chronic white matter disease is stable. There is no intracranial hemorrhage. No findings of focal or generalized edema. No change from prior. CT cervical spine: Cervical body heights are maintained. There are degenerative disc and endplate changes with facet arthrosis, chronic. No cervical fracture or dislocation. IMPRESSION: CT head: Stable postoperative and chronic findings, no hemorrhage or acute pathology. No change. CT cervical spine: Degenerative changes of spondylosis and facet arthrosis without fracture or traumatic malalignment. Dictated by: Dictated on workstation # [id number]
--- NOTE | 2016-11-22 12:10 | Diagnostic Imaging Report ---
INDICATION: Unresponsive. Study compared to 11/22/2016 FINDINGS: Rightward rotation limits assessment of the cardio mediastinal and hilar contours. The heart is at least moderately enlarged and is not definitely changed from prior. No convincing evidence for abnormal vascular distention and no focal infiltrate, effusion or pneumothorax. IMPRESSION: Enlargement of the heart redemonstrated. Rightward rotation substantially limits exam sensitivity. No convincing evidence for an acute abnormality. Dictated by: Dictated on workstation # [id number]
--- NOTE | 2016-11-22 12:11 | Diagnostic Imaging Report ---
INDICATION: Fall, pain. FINDINGS: The bones appear demineralized and underlying osteopenia or osteoporosis is suspected. A fracture however could not be identified. The femoral heads are directed into the acetabula. The left femoral neck and trochanters unremarkable. The obturator rings symphysis and SI joints nonacute. IMPRESSION: Likely bony demineralization without an appreciable fracture or dislocation. Dictated by: Dictated on workstation # [id number]
[2016-11-22] MEDS ORDERED: ENOXAPARIN 30 MG/0.3 ML (LOVENOX) SYR SC SCH (13:45)
--- NOTE | 2016-11-22 13:48 | History & Physical-Hospitalist ---
HPI History of Present Illness: HPI/Chief Complaint this is a 80-year-old white female with mild dementia who is a resident at [facility]. She has been having increased confusion and falling and is found that her potassium is markedly low at 2.6 and her sodium as well is low. she is unable able to identify any specific complaints other than she says just something stronger and is very agitated. Source: family, old records Exam Limitations: clinical condition Date Seen 11/22/16 Time Seen by Provider: 13:59 Attending Physician Hanna Fulton MD PCP Zeeshan Day DO Referring Physician Date of Admission Nov 22, 2016 at 13:16 Home Medications & Allergies Home Medications Reviewed patient Home Medication Reconciliation Form Allergies Allergies Coded Allergies NKANo Known Allergies (Unverified Allergy, Mild, 05/29/09) Past Ueyrpbz-Edmcdr-Nkrjxz Hx Patient Social History Marrital Status: Employed/Student: retired Alcohol Use: Denies Use Recreational Drug Use: No Smoking Status: Former Smoker Type Used: Cigarettes Recent Foreign Travel: No Contact w/other who traveled: No Recent Hopitalizations: No Recent Infectious Disease Expo: No Immunizations Up To Date Tetanus Booster (TDap): Unknown Date of Pneumonia Vaccine: May 07, 2009 Date of Influenza Vaccine: Jan 05, 2016 Seasonal Allergies Seasonal Allergies: Yes Surgeries HX Surgeries: Yes (BRAIN SURGERY,KNEE SURGERY, FOOT SURGERY ; HYST/BSO) Surgeries: Appendectomy, Hysterectomy, Neurological, Oophorectomy, Orthopedic, Pacemaker, Thyroidectomy Respiratory Hx Respiratory Disorders: Yes (HYPOXIA--WEARS O2 AT 2-3L/NC CONTINUOUSLY) Cardiovascular Hx Cardiovascular Disorders: Yes (PULMONARY HTN, PACEMAKER) Cardiac Disorders: Atrial Fibrillation, Chronic Edema/Swelling, High Cholesterol, Hypertension Neurological Hx Neurological Disorders: Yes (HX OF INTRACRANIAL BLEED) Neurological Disorders: Dementia, Stroke Reproductive System Hx Reproductive Disorders: No Genitourinary Hx Genitourinary Disorders: No Gastrointestinal Hx Gastrointestinal Disorders: Yes (ULCERATIVE COLITIS. ) Gastrointestinal Disorders: Colitis, Gastrointestinal Bleed, Diverticulosis Musculoskeletal Hx Musculoskeletal Disorders: Yes (CHRONIC NECK PAIN , SPINAL STENOSIS; OELCRANON BURSITIS) Musculoskeletal Disorders: Osteoporosis, Arthritis, Chronic Back Pain Endocrine Hx Endocrine Disorders: No HEENT HX ENT Disorders: No Cancer Hx Cancer: No (BENIGN SKIN LESIONS) Psychosocial Hx Psychiatric Problems: No Integumentary HX Skin/Integumentary Disorder: Yes (BENIGN SKIN LESIONS) Blood Transfusions Hx Blood Disorders: No Reviewed Nursing Assessment Reviewed/Agree w Nursing PMH: Yes Family Medical History Significant Family History: No Pertinent Family Hx, Stroke Review of Systems Constitutional: weakness EENTM: no symptoms reported Respiratory: no symptoms reported Cardiovascular: no symptoms reported Gastrointestinal: no symptoms reported Genitourinary: no symptoms reported Musculoskeletal: no symptoms reported Skin: no symptoms reported Psychiatric/Neurological: Anxiety Physical Exam Physical Exam Vital Signs Vital Sign - Last 12Hours 11/22/16 10:26 Temp 97.2 Pulse 70 Resp 16 B/P (MAP) 174/86 Pulse Ox 97 Capillary Refill : Less Than 3 Seconds General Appearance: Chronically ill, Other HEENT: Other (oral mucosa dry) Neck: Supple Respiratory: Lungs Clear, Normal Breath Sounds, No Accessory Muscle Use, No Respiratory Distress Cardiovascular: Regular Rate, Rhythm, No Gallop Gastrointestinal: Soft Rectal: Deferred Neurologic/Psychiatric: Alert, Other (disoriented) Skin: Pallor Results Results/Procedures Lab Laboratory Tests 11/22/16 11:25 Assessment/Plan Admission Diagnosis 1.dehydration 2. Hypokalemia 3. Hyponatremia 4. 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
[2016-11-22] MEDS ORDERED: CATHETER FLUSH 10 ML SYR IV PRN (14:00)
[2016-11-22 14:16] VITALS: BP 110/56
[2016-11-22] MEDS: KCL 20 MEQ TAB (K-DUR) PO SCH ×2 (14:41→17:30)
[2016-11-22] MEDS: D5 NS W/KCL 40 MEQ/L 1,000 ML IV SCH ×2 (14:41→23:50)
[2016-11-22 16:00] VITALS: BP 101/56
[2016-11-22] MEDS ORDERED: FURO80TA83 PO (16:51)
[2016-11-22] MEDS ORDERED: DOCU-143 PO (16:51)
[2016-11-22] MEDS ORDERED: METO2.5T PO (16:51)
[2016-11-22] MEDS ORDERED: MORP-34 PO (16:51)
[2016-11-22] MEDS ORDERED: GLUC100016 PO (16:51)
[2016-11-22] MEDS ORDERED: LUTE20CA2 PO (16:51)
[2016-11-22] MEDS ORDERED: BISO5TAB PO (16:51)
[2016-11-22] MEDS ORDERED: MELA3TAB PO (16:51)
[2016-11-22] MEDS ORDERED: ASPI-586 PO (16:51)
[2016-11-22] MEDS ORDERED: GUAI600T86 PO (16:51)
[2016-11-22] MEDS ORDERED: MV-M1TAB38 PO (16:51)
[2016-11-22] MEDS ORDERED: MAGN500C15 PO (16:51)
[2016-11-22 20:10] VITALS: BP 100/55
[2016-11-23] VITALS: BP 100/64
[2016-11-23] MEDS: D5 NS W/KCL 40 MEQ/L 1,000 ML IV SCH (00:49)
--- OUTSIDE RECORDS SUMMARY | 2016-11-23 02:17 | XMS REPORT | Encounter Summary ---
Author Author [facility] Organization [facility] Address Unknown Phone Unavailable Care Team Providers Care Contamination Consultant Name Role Phone PCP Unavailable Reason for Visit * Reason Comments Appointment Encounter Details Date Type Department Care Team Description 11/10/2016 Telephone [facility] Ann Marie Sanchez MD Appointment [facility] Exam [address] [place] [address] [place] [address] [phone] Social History Tobacco Use Types Packs/Day Years [...]
--- OUTSIDE RECORDS SUMMARY | 2016-11-23 02:17 | XMS REPORT | Encounter Summary ---
Author Author [facility] Organization [facility] Address Unknown Phone Unavailable Care Team Providers Care Licensed Optician Name Role Phone PCP Unavailable Reason for Visit * Reason Comments Heme/Onc Care Encounter Details Date Type Department Care Team Description 11/03/2016 Office Visit [facility] DO Malignant neoplasm of [place] [address] left breast in female, [address] [place] 2003 estrogen receptor [address] [place] [address] [place], [place] [address] site of breast (Primary [phone] Dx);Malignant neoplasm of upper-outer quadrant of left [...] minimal pain. She has no complaints. The long-term reports no fever or chills. PHYSICAL EXAM: [...] 1 cm from all margins Histologic Grade ([place] Histologic Score): II/III Tubule Formation: 3 Nuclear Grade: 2 Mitotic Count (40x objective): 2 Total [place] Score: 7/9 Ductal Carcinoma In-situ (DCIS): Present Extensive intraductal component (>25%): Absent DCIS within and/or adjacent to invasive carcinoma: Yes DCIS separate from invasive carcinoma: No Lobular Carcinoma In-situ (LCIS): Absent Lymph-Vascular Invasion: Present Nipple Involvement: Absent Skin Involvement: Absent Lymph Node Sampling: Monument lymph node(s) only Total number of involved nodes/total nodes found: 0/3 Prognostic markers: Ordered. See Tumor Prognostic Marker addendum in Results Review. Time between tumor removal and placement into formalin < 1 hour: Yes Fixation Time between 6-72 hours: Yes Pathologic Staging: [id number] ASSESSMENT/PLAN: S/P: left total mastectomy, SLNB for [...] drain recording sheet to take to the long-term with instructions on recording the output to assist with accurate recording. We discussed that once the output is less than 30 ml for 2 consecutive days, the drain is ready for removal. This can be done at the long-term if there is someone there comfortable with [...]
--- OUTSIDE RECORDS SUMMARY | 2016-11-23 02:17 | XMS REPORT | Encounter Summary ---
Author Author [facility] Organization [facility] Address Unknown Phone Unavailable Care Team Providers Care Forest Supervisor Name Role Phone PCP Unavailable Reason for Visit * Reason Comments Heme/Onc Care Encounter Details Date Type Department Care Team Description 11/03/2016 Office Visit [facility] Ann Marie Sanchez MD Malignant neoplasm of Cancer Center - [address] breast in female, Exam BIA 1107 estrogen receptor [address] [address] positive, [place] [address] laterality, unspecified [phone] site of breast (Primary Dx) Social History [...] increase dementia. Please call our office at [phone] if you would like to take the [...] prior to diagnosis. Bilateral diagnostic mammogram 08/19/16 ([facility]) showed a highly suspicious mass in the left breast. Left breast US 08/19/16 ([facility]) showed the mass to be 2.7cm with and enlarged left axillary lymph node. 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 ER 100, LA 60, Her2 1+ by IHC, with a Ki-67 of 25%. Ni Roblero currently resides in a long-term care facility in [place], [place]. Patient suffers from mild dementia and [...] 2 Mitotic Count (40x objective): 2 Total [place] Score: 7/9 Ductal Carcinoma In-situ (DCIS): Present Extensive intraductal component (>25%): Absent DCIS within and/or adjacent to invasive carcinoma: Yes DCIS separate from invasive carcinoma: No Lobular Carcinoma In-situ (LCIS): Absent Lymph-Vascular Invasion: Present Nipple Involvement: Absent Skin Involvement: Absent Lymph Node Sampling: [place] lymph node(s) only Total number of involved nodes/total nodes found: 0/3 Prognostic markers: Ordered. See Tumor Prognostic Marker addendum in Results Review. Time between tumor removal and placement into formalin < 1 hour: Yes Fixation Time between 6-72 hours: Yes Pathologic Staging: [id number] Tumor Markers 10/24/16 ER 99 LA 68 Her2 1+ Ki-67 Assessment and Plan: The patient is a 80 y.o. postmenopausal (surgically induced) female with the followin. Invasive ductal carcinoma, grade II. S/p left total mastectomy and SLNB 10/24. Pathologic Staging: pT2 N0 Mn/a. ER 99 LA 68 Her2 negative (1+ by IHC) with [...]
--- OUTSIDE RECORDS SUMMARY | 2016-11-23 02:17 | XMS REPORT | Clinical Summary ---
Author Author [facility] Organization [facility] Address Unknown Phone Unavailable Care Team Providers Care Support Team Member Name Role Phone PCP Unavailable Source Comments Some departments are not documenting in the electronic medical record. If you do not see the information that you expected, contact Release of Information in the Health Information Management department at [phone] for further assistance in locating additional records.[facility] Allergies No Known Allergies Current Medications [...] 1 Tab by mouth twice 10/26/19 Discontin C,H-Td-hoela-lutein-zeaxa daily. 17 ued n (PRESERVISION AREDS 2) [phone] yb-zcwl-ml-mg cap oxyCODONE (ROXICODONE) 5 Take 1 Tab [...] IMAGING: Mammogram: -- Bilateral diagnostic mammogram 08/19/16 ([place], [place]) revealed heterogeneously dense breast tissue. 2 [...] nodes. Ultrasound: -- Left breast ultrasound 08/19/16 ([place], [place]) revealed an irregular 2.7 cm mass [...] nodules 11/24/2013 SSS (sick sinus syndrome) ([facility]) 04/23/2013 Overview: 11/07/11 - PPM implant by Steven Garc[facility] at [facility] Cardiac pacemaker in situ 04/23/2013 Overview: 11/07/11 - MDT PPM Adapta SR [id number]; RV Lead 4076-58 Aortic regurgitation 04/18/2013 SDH (subdural hematoma) ([facility]) 01/10/2013 Adnexal mass 11/29/2012 Cardiomegaly 11/29/2012 Pacemaker [...] in female, estrogen receptor positive (HCC) 10/24/2016 [facility] Cardiology Adrienne Donis MD Encounter [...] / Breast Brandon Vitale DO Center 09/22/2016 [facility] Oncology Ann Marie Sanchez MD [...] VACCINE 05/07/2026 05/07/2016 Implants Implanted Type Area Electrical Controls Engineer Device Expiration Model / Identifier Date Serial [...] 100 MG/DL Specimen Performing Laboratory MAIN LAB [address] [place] [address] * PHOSPHORUS (10/25/2016 4:17 AM) Component Value Ref Range Phosphorus 3.8 2.0 - 4.0 MG/DL Specimen Performing Laboratory Blood MAIN LAB [address] [place] [address] * MAGNESIUM (10/25/2016 4:17 AM) Component Value Ref Range Magnesium 1.9 1.6 - 2.6 mg/dL Specimen Performing Laboratory Blood MAIN LAB [address] [place], [place] [id number] * BASIC METABOLIC PANEL (10/25/2016 4:17 AM) [...] questions. Specimen Performing Laboratory Blood MAIN LAB [address] [place], [place] [id number] * DEVICE EVALUATION - PPM (10/24/2016 12:38 PM) Component Value Ref Range Device Implanted By Steven García M.D. - [facility] Advisory Info Advisory Info 2 Permanent Comments Permanent Comments 2 Permanent Comments 3 Permanent Comments 4 Permanent Comments 5 Permanent Comments 6 Permanent Comments 7 Research Comments Research Comments 2 Phone Check Next Due DIOMEDES/EOL Indicator VVI 65 bpm Generator Electrical Controls Engineer Medtronic Generator Electrical Controls Engineer Other Generator Model # Adapta ADSR01 Generator Serial # [id number] Generator Implnat Date 11/07/2011 Atrial Lead Electrical Controls Engineer Atrial Lead Electrical Controls Engineer Other Atrial Lead Model # Atrial Lead Serial # Atrial Lead Implant Date RV Lead Electrical Controls Engineer Medtronic RV Lead Electrical Controls Engineer Other RV Lead Model # 4076-58cm RV Lead Serial # [id number] RV Lead Implant Date 11/07/2011 LV Lead Electrical Controls Engineer LV Lead Electrical Controls Engineer Other LV Lead Model # LV Lead Serial # LV Lead Implant Date Other Implant Info Pacemaker Dependant No Generator Investigational No Atrial Lead Investigational RV Lead Investigational No LV Lead Investigational Device Type VVI-PM Wireless Generator No Date of Last Programming 01/02/2014 Next Programming Check Due Date of Last 01/18/2014 - Via [employer] Interrogation Device Mode VVIR Lower Rate Limit 60 Upper Rate Limit Sensor Rate Limit 130 Pace AV Delay Sense AV Delay Mode Switch (bpm) High A Rate Detect High V Rate Detect Mode Switch Status N/A Date of Last ICM Evaluation Next ICM Check Due HF Patient No Date of Last Remote Check 01/18/2014 - Via Mark[employer] Express Next Remote Check Due Enrollment Date Date of baseline remote transmission AT/AF Daily Putnam Hours Average Vent Rate during AT/AF #BPM Average Vent Rate During AT/AF #Hours Remote Monitoring? No Daily [place]nam Threshld Alert? Average Venticular Rate AT/AF On/Off VF Detection/Therapy Off Specimen Performing Laboratory OTHER OUTSIDE LAB Narrative [employer] Express [facility] PACU Koality received and reviewed. See attached for details. Medtronic single chamber pacemaker interrogation.Device function appears normal. No alerts, no resets.Prior check was 10/10/16. Battery 1.5-4y left, avg 2.5y Presenting EGM shows LASTEX THREAD WINDER 66bpm with some VS intrinsic competition, AFib. Events noted: Ventricular:none Report called to jacobo Eric RN. Route to RENALDO Donis EP. [10/24/2016 12:46:22 PM - ANUP CARLOS] * POC BLOOD GAS ARTERIAL (10/24/2016 12:07 PM) Component Value Ref Range PH-ART-POC 7.48 (H) 7.35 - 7.45 OGG4-YOO-NFH 57 (H) 35 - 45 MMHG PO2-ART-POC 311 (H) 80 - 100 MMHG Base Ex-ART-POC 19.0 MMOL/L O2 Sat-ART-POC 100.0 (H) 95 - 99 % Ijdwzrktenu-AAK-XGT 42.3 (H) 21 - 28 MMOL/L Specimen Performing Laboratory [facility] MAIN [facility] [address] [place] [address] * NM LYMPH NODE INJ RADIOTRACER (10/24/2016 11:42 AM) Specimen Performing Laboratory [facility] RAD RESULTS Impressions 1. Perioperative intradermal injection of Tc-99m sulfur colloid for the purpose of lymph node localization. 2. Please see separately dictated operative report for complete description of the procedure. Approved by Juan Antonio iDehl M.D. on 10/24/2016 11:55 AM By my [...] Sat-Arterial 99.9 (H) 95 - 99 % Flyeqpmtttx-XBY-Xmj 34.2 (H) 21 - 28 MMOL/L Specimen Performing Laboratory Blood, arterial - Blood [facility] MAIN LAB [address] [place] [address] * SURGICAL PATHOLOGY (10/24/2016 9:40 AM) Component Value Ref Range PATHOLOGY REPORT [facility] [email or web address] Radhika Rankin MD, PhD, Director of Anatomic Pathology Department of Pathology and Laboratory Medicine [address] [place] [phone] Surgical Pathology Office: [phone] SURGICAL PATHOLOGY REPORT NAME: NI ROSA SURG PATH #: [id number] MR #: [id number] SPECIMEN CLASS: SR BILLING #: [id number] ALT ID #: LOCATION: [facility] DATE OF PROCEDURE: 10/24/2016 AGE: 80 [...] 2 Mitotic Count (40x objective): 2 Total [place] Score: 7/9 Ductal Carcinoma In-situ (DCIS): Present Extensive intraductal component (>25%): Absent DCIS within and/or adjacent to invasive carcinoma: Yes DCIS separate from invasive carcinoma: No Lobular Carcinoma In-situ (LCIS): Absent Lymph-Vascular Invasion: Present Nipple Involvement: Absent Skin Involvement: Absent Lymph Node Sampling: [place] lymph node(s) only Total number of involved nodes/total nodes found: 0/3 Prognostic markers: Ordered. See Tumor Prognostic Marker addendum in Results Review. Time between tumor removal and placement into formalin < 1 hour: Yes Fixation Time between 6-72 hours: Yes Pathologic Staging: [id number]/a The pathologic stage assigned here should be [...] is inked black Axillary dissection attached: No Event Operations Manager sections of the specimen are submitted as follows: D1 Event Operations Manager sections of the upper outer quadrant. D2 Event Operations Manager sections of the lower outer quadrant. D3 Event Operations Manager sections of the lower inner quadrant. D4 Event Operations Manager sections of the upper inner quadrant. D5 Event Operations Manager section of skin closest to the lesion. D6-D7 The entire nipple, serially sectioned. D8 Deep margin closest to tumor. D9 Uninvolved section lateral to tumor. [id number] section of tumor lateral to medial. D14 [...] serially sectioned to reveal no gross abnormalities. Event Operations Manager sections are submitted in cassettes E1-E3. (mejia) [...] of Pathology and Laboratory Medicine of the [facility] ([employer]) in compliance with CLIA'88 regulations. Some of these tests rely on the use of "analyte specific reagents" and are subject to specific labeling requirements by the FDA. Known positive and negative control tissues demonstrate appropriate staining. This assay has not been validated on decalcified tissues. This testing was developed by the Department of Pathology and Laboratory Medicine of the [facility]. It has not been cleared or approved by the FDA. The FDA has determined that such clearance or approval is not necessary. Specimen Performing Laboratory LAB RESULTS * GLUCOSE,BG (10/24/2016 8:30 AM) Component Value Ref Range Glucose 104 (H) 70 - 100 MG/DL Specimen Performing Laboratory Blood [facility] [address] [place] [address] * SODIUM,BG (10/24/2016 8:30 AM) Component Value Ref Range Sodium 128 (L) 137 - 147 MMOL/L Specimen Performing Laboratory Blood [facility] [address] [place], [place] [id number] * POTASSIUM, BG (10/24/2016 8:30 AM) Component Value Ref Range Potassium 3.1 (L) 3.5 - 5.1 MMOL/L Specimen Performing Laboratory Blood [facility] [address] [place], [place] [id number] * IONIZED CALCIUM,BG (10/24/2016 8:30 AM) Component Value Ref Range Ionized Calcium 1.10 1.0 - 1.3 MMOL/L Specimen Performing Laboratory Blood [facility] [address] [place] [address] * HEMOGLOBIN & HEMATOCRIT, BG (10/24/2016 8:30 AM) Component Value Ref Range Hemoglobin BG 11.1 (L) 12.0 - 15.0 GM/DL Hematocrit BG 34.4 (L) 36 - 45 % Specimen Performing Laboratory Blood [facility] MAIN [facility] [address] [place], [place] [address] [address] * PATHOLOGY REPORTS FROM OUTSIDE SCAN (09/25/2016 [...] - 0.20 K/UL Specimen Performing Laboratory Blood [facility] [address] [address] * COMPREHENSIVE METABOLIC PANEL (09/22/2016 3:42 PM) [...] Blood [facility] MAIN LAB [address] [place] [address] * US BREAST TARGET LT (09/22/2016 10:30 AM) Specimen Performing Laboratory [facility] RAD RESULTS Impressions ACR BI-RADS Assessments: BIRAD 5-Highly suggestive of malignancy RECOMMENDATION: Sono guided biopsy of the left breast. Narrative Malignant neoplasm of left female breast, unspecified site of breast [id number] US BREAST TARGET LT: LEFT BREAST - SEPTEMBER 22, 2016 - Standard views. Technologist: Miriam Martinez, staff scientist Left breast ultrasound was performed. Imaging of [...] signed and approved by: George Winters M.D. [id number] Procedure Note Interface, Radiant Results - 09/22/2016 10:43 AM CDT Malignant neoplasm of left female breast, unspecified site of breast [id number] US BREAST TARGET LT: LEFT BREAST - SEPTEMBER 22, 2016 - Standard views. Technologist: Miriam Martinez, staff scientist Left breast ultrasound was performed. Imaging of [...] signed and approved by: George Winters M.D. [id number] IMPRESSION ACR BI-RADS Assessments: BIRAD 5-Highly suggestive of malignancy RECOMMENDATION: Sono guided biopsy of the left breast. * OUTSIDE PATHOLOGY CONSULT (09/12/2016 2:22 PM) Component Value Ref Range PATHOLOGY REPORT [facility] [email or web address].[employer] Radhika Rankin MD, PhD, Director of Anatomic Pathology Department of Pathology and Laboratory Medicine [address] [place] [phone] Surgical Pathology Office: [phone] PATHOLOGY CONSULTATION NAME: NI ROSA MIGUE SURG PATH #: [id number] MR #: [id number] ALT ID #: LOCATION: [facility] DATE OF PROCEDURE: 09/12/2016 AGE: 80 SEX: F DATE RECEIVED: 09/12/2016 : 1935 TIME RECEIVED: 14:22 PHYSICIAN: BRANDON VITALE DO DATE OF REPORT: 09/15/2016 COPY TO: DATE OF PRINTIN09/15/2016 ################################################## ###################### Final Diagnosis: A. Outside case [id number] (Date Collected: 08/28/2016) Breast, left, needle biopsy [...] 2 Mitotic Count (40x objective): 2 Total [place] Score: 7/9 DCIS: Present Extent of DCIS (%): <5% Lymph-Vascular Invasion: Not identified Microcalcifications: Absent Tumor Necrosis: Focal Lymph Node Sampling: Not performed Prognostic markers: Per outside slides and report as following: ER: 100% VT: 60% Her2: 1+ (negative) Ki-67: 25% Time [...] ###################### Material Received: A: Outside Slides x5 [id number], [facility] [address] [place] [address] History: 80-year-old female with a clinical history of breast cancer. Gross Description: A. Received are five (5) outside slides labeled "[id number]", and a properly identified surgical pathology report from [facility] [address] [place], [place] [address]Lipic: [phone]; . paj/09/12/2016 If immunohistochemical stains and/or in situ hybridization are cited in this report, the performance characteristics were determined by the Department of Pathology and Laboratory Medicine of the [facility] ([employer]) in compliance with CLIA'88 regulations. Some of these tests rely on the use of "analyte specific reagents" and are subject to specific labeling requirements by the FDA. Known positive and negative control tissues demonstrate appropriate staining. This testing was developed by the Department of Pathology and Laboratory Medicine of the [facility]. It has not been cleared or [...]
--- OUTSIDE RECORDS SUMMARY | 2016-11-23 02:17 | XMS REPORT | Encounter Summary ---
Author Author [facility] Organization [facility] Address Unknown Phone Unavailable Care Team Providers Care Java Technical Architect Name Role Phone PCP Unavailable Encounter Details Date Type Department Care Team Description 11/17/2016 Documentation [facility] [address] [place] [address] [place] [address] [phone] Social History Tobacco Use Types Packs/Day Years [...] - 11/17/2016 9:28 AM CDT at [facility] calls reporting patients drain output less than 20ml for greater than 3 days. will remove patients drain today. Post-Drain removal care instructions given to Sund. in this encounter Plan of Treatment Not on fileas of this encounter Visit Diagnoses Not on filein this encounter
--- OUTSIDE RECORDS SUMMARY | 2016-11-23 02:18 | XMS REPORT | Encounter Summary ---
Author Author [facility] Organization [facility] Address Unknown Phone Unavailable Care Team Providers Care Dairy Powder Mixer Operator Name Role Phone PCP Unavailable Encounter Details Date Type Department Care Team Description 10/24/2016 Procedure Pass Cardiothor Prgr[facility] cr [address] [place] [address] Social History Tobacco Use Types Packs/Day Years [...]
--- OUTSIDE RECORDS SUMMARY | 2016-11-23 02:18 | XMS REPORT | Encounter Summary ---
Author Author [facility] Organization [facility] Address Unknown Phone Unavailable Care Team Providers Care Journeyman Wireman Name Role Phone PCP Unavailable Reason for Referral * Radiology Services Status Reason Specialty Diagnoses / Referred By Referred To Procedures Contact Contact No Auth Needed Radiology Diagnoses Brandon Vitale, [facility] [place] [address] neoplasm of left [address] [place] [address] [address] (HCC) [place] 2004 Phone: [place], [place] [phone] [place] [address] [place] L[place] NODE Phone: INJ RADIOTRACER [phone] * Radiology Services Status Reason Specialty Diagnoses / Referred By Referred To Procedures Contact Contact No Auth Needed Radiology Diagnoses Brandon Vitale, [facility] [place] [address] neoplasm of left [address] [place], [place] female breast [address] [address] (HCC) [place] 2004 Phone: [place], [place] [phone] [place] [address] [place] Phone: INJ RADIOTRACER [phone] Reason for Visit * Auth/Cert Status Reason Specialty Diagnoses / Referred By Referred To Procedures Contact Contact Diagnoses Malignant neoplasm of right female breast (HCC) U NKNOWN Breast cancer of upper-outer quadrant of left female breast (HCC) P rocedures ID MASTECTOMY SIMPLE COMPLETE ID MASTECTOMY SIMPLE COMPLETE ID AXILLARY LYMPHADENECTOMY COMPLETE ID INTRAOP SENTINEL LYMPH NODE ID W/DYE INJECTION ID BX/EXC LYMPH NODE OPEN SUPERFICIAL ID BX/EXC LYMPH NODE OPEN DEEP AXILLARY NODE Left Total Mastectomy, Mackay Lymph Node Biopsy Possible Axillary Lymph Node Dissection Encounter Details Date Type Department Care Team Description 10/24/2016 Hospital [facility] Brandon Jones DO Malignant neoplasm of - Encounter [address] upper-outer quadrant of 10/25/2016 [place] [address] [place] 2005 left female breast (HCC) [phone] [place] [address] [phone] Social History Tobacco Use Types Packs/Day Years [...] on 10/24/[address] Vitale at the [facility] : Niclement Rosa MEDICATIONS: aspirin EC 81 [...] TABLET BY MOUTH DAILY AFTER BREAKFAST vit C,Y-Ud-eptbb-lutein-zeaxan (PRESERVISION AREDS 2) [phone] mg-unit- mg-mg cap Take 1 Tab by [...] needed) Mari Chang RN Preoperative Assessment Clinic [facility] E-mail: [email or web address] Nursing Facility Resident at: [facility] Medication Instructions above faxed on 10/20 @ [...] and any other valuables at home. The [facility] is not responsible for the loss or breakage of personal items. Remove nail armenian, makeup and all jewelry (including piercings) before coming to the hospital. The morning of your procedure: brush your teeth and tongue do not smoke do not shave the area where you will have surgery What to bring to the hospital ID/ Insurance Card Furniture Designer card Official documents for legal guardianship Copy of your Living Will, Advanced Directives, and/or Durable Power of Manager Golf Small bag with a few personal belongings [...] (I called report to Diana at [facility] prior to son's arrival to ), they had many questions and concerns. Son is very anxious about pain management and shelter being able to take care of drains and dressings. I reiterated to him that I educated [facility] on GRIS drain, dressing, and pt.'s current [...] are planning to drive pt. To [facility] this evening. * Celine oJnes MD - 10/25/2016 9:00 AM CDT Formatting of this note may be different from the original. 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 POD #1 s/p left total mastectomy and SLNB on 10/25. -PO pain control with PO morphine (ALGOLOGY TEACHER medication) -Regular diet -Bowel regimen -GRIS drain to bulb suction with serosanguinous drainage -No lifting more than 10 pounds for 6 weeks -Follow up as scheduled with Dr. Vitale - Restart all ALGOLOGY TEACHER medications on dischage -Dispo: discharge to nursing facility later today Discussed with Dr. Vitale and will be seen by Dr. Vitale later today. S: No acute events overnight. She is oriented to person and place today. No agitated. States her pain is well controlled on ALGOLOGY TEACHER medications. Tolerating diet. Denies nausea/emesis. Tan removed this morning. O: Temp: 36.6 C (97.8 F) (10/25 718) Pulse: 60 (10/25 718) Respirations: 18 PER MINUTE (10/25 718) BP: 105/62 (10/25 718) Date 10/24/16 0701 - 10/25/16 0700 10/25/16 0701 - 10/26/16 0700 Shift 9633-3851 4082-0288 24 Hour Total 3762-4661 0512-8889 24 Hour Total I N T A K E P.O. 200 200 I.V. (mL/kg/hr) 1700 (1.8) 1700 (0.9) Other 0 0 Shift Total (mL/kg) 1700 (21.4) 200 (2.5) 1900 (23.9) O U T P U T Urine (mL/kg/hr) 450 (0.5) 875 (0.9) 1325 (0.7) Urine Output (ml) ([REMOVED] Indwelling Urinary Catheter 10/24/16 1347 16 FR Regular (Two-way)) 675 714 0088 Drains 46 25 71 Drain Output (ml) (Jose Juan Rea Drain 10/24/16 1017 Left Chest #1) 46 25 71 Other 75 75 EBL 75 75 Shift Total (mL/kg) 571 (7.2) 900 (11.3) 1471 (18.5) NET 1129 -546 429 Weight (kg) 79.4 79.4 79.4 79.4 [...] voiding, will page breast surgery again at [id number]. Will continue to monitor. * Jeannette Franklin, [...] Date: 10/25/2016 [place] AC=Airway clearance AM=Aerosolized medication BA=[place] aerosol DB&C=Deep breathe & cough FEV1=Forced expiratory volume in first second) IC=Inspiratory capacity LE=Lung expansion MDI=Metered dose inhaler Neb=Nebulizer O2=Oxygen Oxim=Oximetry PEFR=Peak expiratory flow rate FLOOR AND WALL APPLIER LIQUID=Rapid Response Team * Danika Magallanes, RN - [...] Ref Range: 80 - 100 MMHG 311 Mrlzxgjjhsn-EJF-Wev Latest Ref Range: 21 - 28 MMOL/L [...] MG/DL Specimen Performing Laboratory MAIN LAB [address] [place] [address] * PHOSPHORUS (10/25/2016 4:17 AM) Component Value Ref Range Phosphorus 3.8 2.0 - 4.0 MG/DL Specimen Performing Laboratory Blood MAIN LAB [address] [place] [address] * MAGNESIUM (10/25/2016 4:17 AM) Component Value Ref Range Magnesium 1.9 1.6 - 2.6 mg/dL Specimen Performing Laboratory Blood MAIN LAB [address] [place] [address] * BASIC METABOLIC PANEL (10/25/2016 4:17 AM) [...] questions. Specimen Performing Laboratory Blood MAIN LAB [address] [place] [address] * POC GLUCOSE (10/24/2016 9:43 PM) Component Value Ref Range Glucose, POC 166 (H) 70 - 100 MG/DL Specimen Performing Laboratory MAIN LAB [address] [place] [address] * DEVICE EVALUATION - PPM (10/24/2016 12:38 PM) Component Value Ref Range Device Implanted By Steven García M.D. - [facility] Advisory Info Advisory Info 2 Permanent Comments Permanent Comments 2 Permanent Comments 3 Permanent Comments 4 Permanent Comments 5 Permanent Comments 6 Permanent Comments 7 Research Comments Research Comments 2 Phone Check Next Due DIOMEDES/EOL Indicator VVI 65 bpm Generator Receivable Manager Medtronic Generator Receivable Manager Other Generator Model # Adapta ADSR01 Generator Serial # [id number] Generator Implnat Date 11/07/2011 Atrial Lead Receivable Manager Atrial Lead Receivable Manager Other Atrial Lead Model # Atrial Lead Serial # Atrial Lead Implant Date RV Lead Receivable Manager Medtronic RV Lead Receivable Manager Other RV Lead Model # 4076-58cm RV Lead Serial # [id number] RV Lead Implant Date 11/07/2011 LV Lead Receivable Manager LV Lead Receivable Manager Other LV Lead Model # LV Lead Serial # LV Lead Implant Date Other Implant Info Pacemaker Dependant No Generator Investigational No Atrial Lead Investigational RV Lead Investigational No LV Lead Investigational Device Type VVI-PM Wireless Generator No Date of Last Programming 01/02/2014 Next Programming Check Due Date of Last 01/18/2014 - Via [employer] Express Interrogation Device Mode VVIR Lower Rate Limit 60 Upper Rate Limit Sensor Rate Limit 130 Pace AV Delay Sense AV Delay Mode Switch (bpm) High A Rate Detect High V Rate Detect Mode Switch Status N/A Date of Last ICM Evaluation Next ICM Check Due HF Patient No Date of Last Remote Check 01/18/2014 - Via [employer] EverConnect Next Remote Check Due Enrollment Date Date of baseline remote transmission AT/AF Daily [place] Hours Average Vent Rate during AT/AF #BPM Average Vent Rate During AT/AF #Hours Remote Monitoring? No Daily [place] Threshld Alert? Average Venticular Rate AT/AF On/Off VF Detection/Therapy Off Specimen Performing Laboratory OTHER OUTSIDE LAB Narrative [employer] [facility] received and reviewed. See attached for details. Medtronic single chamber pacemaker interrogation.Device function appears normal. No alerts, no resets.Prior check was 10/10/16. Battery 1.5-4y left, avg 2.5y Presenting EGM shows AUTO WINDER 66bpm with some VS intrinsic competition, AFib. Events noted: Ventricular:none Report called to jacobo Eric RN. Route to RENALDO Donis EP. [10/24/2016 12:46:22 PM - ANUP CARLOS] * POC BLOOD GAS ARTERIAL (10/24/2016 12:07 PM) Component Value Ref Range PH-ART-POC 7.48 (H) 7.35 - 7.45 WQW7-ZTR-JRX 57 (H) 35 - 45 MMHG PO2-ART-POC 311 (H) 80 - 100 MMHG Base Ex-ART-POC 19.0 MMOL/L O2 Sat-ART-POC 100.0 (H) 95 - 99 % Rscabwrafzm-GGD-HTU 42.3 (H) 21 - 28 MMOL/L Specimen Performing Laboratory [facility] MAIN LAB [address] [place] [address] * NM LYMPH NODE INJ RADIOTRACER (10/24/2016 [...] MG/DL Specimen Performing Laboratory MAIN LAB [address] [place] [address] * BLOOD GASES, ARTERIAL (10/24/2016 11:10 AM) Component Value Ref Range pH-Arterial 7.40 7.35 - 7.45 pCO2-Arterial 60 (H) 35 - 45 MMHG pO2-Arterial 273 (H) 80 - 100 MMHG Base Excess-Arterial 10.4 MMOL/L O2 Sat-Arterial 99.9 (H) 95 - 99 % Xtpobcukdgh-YFA-Deq 34.2 (H) 21 - 28 MMOL/L Specimen Performing Laboratory Blood, arterial - Blood MAIN LAB [address] [place] [address] * SURGICAL PATHOLOGY (10/24/2016 9:40 AM) Component Value Ref Range PATHOLOGY REPORT [facility] [email or web address] Radhiak Rankin MD, PhD, Director of Anatomic Pathology Department of Pathology and Laboratory Medicine [address] [place] [phone] Surgical Pathology Office: [phone] SURGICAL PATHOLOGY REPORT NAME: NI ROSA MIGUE SURG PATH #: [id number] MR #: [id number] SPECIMEN CLASS: SR BILLING #: [id number] ALT ID #: LOCATION: [facility] DATE OF PROCEDURE: 10/24/2016 AGE: 80 [...] 1 cm from all margins Histologic Grade (Minot Histologic Score): II/III Tubule Formation: 3 Nuclear Grade: 2 Mitotic Count (40x objective): 2 Total Minot Score: 7/9 Ductal Carcinoma In-situ (DCIS): Present Extensive intraductal component (>25%): Absent DCIS within and/or adjacent to invasive carcinoma: Yes DCIS separate from invasive carcinoma: No Lobular Carcinoma In-situ (LCIS): Absent Lymph-Vascular Invasion: Present Nipple Involvement: Absent Skin Involvement: Absent Lymph Node Sampling: Mackay lymph node(s) only Total number of involved nodes/total nodes found: 0/3 Prognostic markers: Ordered. See Tumor Prognostic Marker addendum in Results Review. Time between tumor removal and placement into formalin < 1 hour: Yes Fixation Time between 6-72 hours: Yes Pathologic Staging: [id number] The pathologic stage assigned here should be [...] is inked black Axillary dissection attached: No Exchange Administrator sections of the specimen are submitted as follows: D1 Exchange Administrator sections of the upper outer quadrant. D2 Exchange Administrator sections of the lower outer quadrant. D3 Exchange Administrator sections of the lower inner quadrant. D4 Exchange Administrator sections of the upper inner quadrant. D5 Exchange Administrator section of skin closest to the lesion. D6-D7 The entire nipple, serially sectioned. D8 Deep margin closest to tumor. D9 Uninvolved section lateral to tumor. O33-I73Frzxrojhffgzcn section of tumor lateral to medial. D14 [...] serially sectioned to reveal no gross abnormalities. Exchange Administrator sections are submitted in cassettes E1-E3. (mejia) [...] of Pathology and Laboratory Medicine of the [facility] ([employer]) in compliance [...] of Pathology and Laboratory Medicine of the [facility]. It has not been cleared or approved by the FDA. The FDA has determined that such clearance or approval is not necessary. Specimen Performing Laboratory LAB RESULTS * POTASSIUM, BG (10/24/2016 8:30 AM) Component Value Ref Range Potassium 3.1 (L) 3.5 - 5.1 MMOL/L Specimen Performing Laboratory Blood [facility] LAB [address] [place] [address] * SODIUM,BG (10/24/2016 8:30 AM) Component Value Ref Range Sodium 128 (L) 137 - 147 MMOL/L Specimen Performing Laboratory Blood [facility] LAB [address] [place] [address] * IONIZED CALCIUM,BG (10/24/2016 8:30 AM) Component Value Ref Range Ionized Calcium 1.10 1.0 - 1.3 MMOL/L Specimen Performing Laboratory Blood [facility] [address] [place] [address] * GLUCOSE,BG (10/24/2016 8:30 AM) Component Value Ref Range Glucose 104 (H) 70 - 100 MG/DL Specimen Performing Laboratory Blood [facility] [address] [place] [address] * BLOOD GASES, ARTERIAL (10/24/2016 8:30 AM) Component Value Ref Range pH-Arterial 7.50 (H) 7.35 - 7.45 pCO2-Arterial 47 (H)Comment: CHECKED 35 - 45 MMHG pO2-Arterial 70 (L)Comment: CHECKED 80 - 100 MMHG Base Excess-Arterial 11.4 MMOL/L O2 Sat-Arterial 95.0 95 - 99 % Xhbebfcphoy-RGH-Kwj 35.1 (H) 21 - 28 MMOL/L Specimen Performing Laboratory Blood, arterial - Blood [facility] LAB [address] [place] [address] * HEMOGLOBIN & HEMATOCRIT, BG (10/24/2016 8:30 AM) Component Value Ref Range Hemoglobin BG 11.1 (L) 12.0 - 15.0 GM/DL Hematocrit BG 34.4 (L) 36 - 45 % Specimen Performing Laboratory Blood [facility] MAIN LAB [address] [place] [address] in this encounter Visit Diagnoses Diagnosis Malignant [...]
--- OUTSIDE RECORDS SUMMARY | 2016-11-23 02:18 | XMS REPORT | Encounter Summary ---
Author Author [facility] Organization [facility] Address Unknown Phone Unavailable Care Team Providers Care Criminal Researcher Name Role Phone PCP Unavailable Reason for Visit * Auth/Cert Status Reason Specialty Diagnoses / Referred By Referred To Procedures Contact Contact Diagnoses Malignant neoplasm of right female breast (HCC) U NKNOWN Breast cancer of upper-outer quadrant of left female breast (HCC) P rocedures NE MASTECTOMY SIMPLE COMPLETE NE MASTECTOMY SIMPLE COMPLETE NE AXILLARY LYMPHADENECTOMY COMPLETE NE INTRAOP SENTINEL LYMPH NODE ID W/DYE INJECTION NE BX/EXC LYMPH NODE OPEN SUPERFICIAL NE BX/EXC LYMPH NODE OPEN DEEP AXILLARY NODE Left Total Mastectomy, [place] Lymph Node Biopsy Possible Axillary Lymph Node Dissection Encounter Details Date Type Department Care Team Description 10/24/2016 [facility] Cardiology Adrienne Donis MD Encounter [address] [place] [address] [place] [address] [place], [place] [id number] Social History Tobacco Use Types Packs/Day Years [...] Take 1 Tab by mouth twice 10/25/2016 C,B-Mz-kivmp-lutein-zeaxa daily. n (PRESERVISION AREDS 2) [phone] qj-txnf-tf-mg cap as of this encounter Plan of Treatment Not on fileas of this encounter Visit Diagnoses Not on filein this encounter
--- OUTSIDE RECORDS SUMMARY | 2016-11-23 02:19 | XMS REPORT | Encounter Summary ---
Author Author [facility] Organization [facility] Address Unknown Phone Unavailable Care Team Providers Care Fireboat Operator Name Role Phone PCP Unavailable Encounter Details Date Type Department Care Team Description 09/22/2016 Prep for Case Main Operating Room Brandon Heart DO [address] [facility] [address] [place] [address] MS [address] [place] [address] [phone] Social History Tobacco Use Types Packs/Day Years [...]
--- OUTSIDE RECORDS SUMMARY | 2016-11-23 02:19 | XMS REPORT | Encounter Summary ---
Author Author [facility] Organization [facility] Address Unknown Phone Unavailable Care Team Providers Care Motor Route Carrier Name Role Phone PCP Unavailable Encounter Details Date Type Department Care Team Description 09/23/2016 Documentation [facility] Heart DO [place] [address] [place] [address] [place] [address] [place] [address] [phone] Social History Tobacco Use Types Packs/Day Years [...] also asked for a recommendation for a rest room maid for the patient to see in [place], [place] for cardiac workup and clearance. Per Dr. Day's office, patients chart will be reviewed and they will call back with recommendations. in this encounter Plan of Treatment Not on fileas of this encounter Visit Diagnoses Not on filein this encounter
--- OUTSIDE RECORDS SUMMARY | 2016-11-23 02:19 | XMS REPORT | Encounter Summary ---
Author Author [facility] Organization [facility] Address Unknown Phone Unavailable Care Team Providers Care Instructor Nurse Name Role Phone PCP Unavailable Reason for Visit * Auth/Cert Status Reason Specialty Diagnoses / Referred By Referred To Procedures Contact Contact Diagnoses Malignant neoplasm of right female breast (HCC) U NKNOWN Breast cancer of upper-outer quadrant of left female breast (HCC) P rocedures [place] MASTECTOMY SIMPLE COMPLETE MN MASTECTOMY SIMPLE COMPLETE MN AXILLARY LYMPHADENECTOMY COMPLETE MN INTRAOP SENTINEL LYMPH NODE ID W/DYE INJECTION MN BX/EXC LYMPH NODE OPEN SUPERFICIAL MN BX/EXC LYMPH NODE OPEN DEEP AXILLARY NODE Left Total Mastectomy, Shock Lymph Node Biopsy Possible Axillary Lymph Node Dissection Encounter Details Date Type Department Care Team Description 10/24/2016 Surgery Main Operating Room Brandon Vitale DO LEFT TOTAL MASTECTOMY, [address] [place] [address] MS 2003 [address] [phone] [place] [address] [phone] Social History Tobacco Use Types Packs/Day Years [...] on 10/24/[address] Vitale at the [facility] : [place] MEDICATIONS: aspirin EC 81 [...] TABLET BY MOUTH DAILY AFTER BREAKFAST vit C,F-Ms-behbi-lutein-zeaxan (PRESERVISION AREDS 2) [id number] mg-unit- mg-mg cap Take 1 Tab by [...] needed) Mari Chang RN Preoperative Assessment Clinic [facility] E-mail: [email or web address] Nursing Facility Resident at: [facility] Medication Instructions above faxed on 10/20 @ [...] and any other valuables at home. The [facility] is not responsible for the loss or breakage of personal items. Remove nail greenlandic, makeup and all jewelry (including piercings) before coming to the hospital. The morning of your procedure: brush your teeth and tongue do not smoke do not shave the area where you will have surgery What to bring to the hospital ID/ Insurance Card Wind Turbine Installer card Official documents for legal guardianship Copy of your Living Will, Advanced Directives, and/or Durable Power of Prosthodontist/Educator Small bag with a few personal belongings [...] of this encounter Progress Notes * Estephanie aPyne RN - 10/25/2016 4:42 PM CDT Pt.'s son and family arrived around 1530. Reviewed D/C w/ them (I called report to Diana at [facility] prior to son's arrival to ), they had many questions and concerns. Son is very anxious about pain management and fpc being able to take care of drains and dressings. I reiterated to him that I educated [facility] on GRIS drain, dressing, and pt.'s current [...] are planning to drive pt. To [facility] this evening. * Celine Jones MD - 10/25/2016 9:00 AM CDT Formatting of this note may be different from the original. 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 POD #1 s/p left total mastectomy and SLNB on 10/25. -PO pain control with PO morphine (SENIOR BI DEVELOPER medication) -Regular diet -Bowel regimen -GRIS drain to bulb suction with serosanguinous drainage -No lifting more than 10 pounds for 6 weeks -Follow up as scheduled with Dr. Vitale - Restart all SENIOR BI DEVELOPER medications on dischage -Dispo: discharge to nursing facility later today Discussed with Dr. Vitale and will be seen by Dr. Vitale later today. S: No acute events overnight. She is oriented to person and place today. No agitated. States her pain is well controlled on SENIOR BI DEVELOPER medications. Tolerating diet. Denies nausea/emesis. Tan removed this morning. O: Temp: 36.6 C (97.8 F) (10/25 718) Pulse: 60 (10/25 718) Respirations: 18 PER MINUTE (10/25 718) BP: 105/62 (10/25 718) Date 10/24/16700 - 10/25/16 0700 10/25/16 07 - 10/26/16 0700 Shift 6161-1206 4054-9708 24 Hour Total 5947-1361 4646-9732 24 Hour Total I N T A K E P.O. 200 200 I.V. (mL/kg/hr) 1700 (1.8) 1700 (0.9) Other 0 0 Shift Total (mL/kg) 1700 (21.4) 200 (2.5) 1900 (23.9) O U T P U T Urine (mL/kg/hr) 450 (0.5) 875 (0.9) 1325 (0.7) Urine Output (ml) ([REMOVED] Indwelling Urinary Catheter 10/24/16 1347 16 FR Regular (Two-way)) 336 155 0243 Drains 46 25 71 Drain Output (ml) [...] voiding, will page breast surgery again at [id number]. Will continue to monitor. * Jeannette Franklin, [...] Date: 10/25/2016 [place] AC=Airway clearance AM=Aerosolized medication BA=[place] aerosol DB&C=Deep breathe & cough FEV1=Forced expiratory volume in first second) IC=Inspiratory capacity LE=Lung expansion MDI=Metered dose inhaler Neb=Nebulizer O2=Oxygen Oxim=Oximetry PEFR=Peak expiratory flow rate DIELECTRIC EMBOSSING MACHINE OPERATOR=Rapid Response Team * Danika Magallanes, RN - [...] Ref Range: 80 - 100 MMHG 311 Secowsckivf-EOE-Non Latest Ref Range: 21 - 28 MMOL/L [...] she is on beta edgar. * Mari Cahng, RN - 10/20/2016 2:14 PM CDT High [...] MG/DL Specimen Performing Laboratory MAIN LAB [address] [place] [address] * PHOSPHORUS (10/25/2016 4:17 AM) Component Value Ref Range Phosphorus 3.8 2.0 - 4.0 MG/DL Specimen Performing Laboratory Blood MAIN LAB [address] [place] [address] * MAGNESIUM (10/25/2016 4:17 AM) Component Value Ref Range Magnesium 1.9 1.6 - 2.6 mg/dL Specimen Performing Laboratory Blood MAIN LAB [address] [place] [address] * BASIC METABOLIC PANEL (10/25/2016 4:17 AM) [...] Specimen Performing Laboratory Blood MAIN LAB [address] [place] [address] * POC GLUCOSE (10/24/2016 9:43 PM) Component Value Ref Range Glucose, POC 166 (H) 70 - 100 MG/DL Specimen Performing Laboratory MAIN LAB [address] [place] [address] * DEVICE EVALUATION - PPM (10/24/2016 12:38 PM) Component Value Ref Range Device Implanted By Steven García M.D. - [facility] Advisory Info Advisory Info 2 Permanent Comments Permanent Comments 2 Permanent Comments 3 Permanent Comments 4 Permanent Comments 5 Permanent Comments 6 Permanent Comments 7 Research Comments Research Comments 2 Phone Check Next Due DIOMEDES/EOL Indicator VVI 65 bpm Generator Mobile Unit Assistant Medtronic Generator Mobile Unit Assistant Other Generator Model # Adapta ADSR01 Generator Serial # [id number] Generator Implnat Date 11/07/2011 Atrial Lead Mobile Unit Assistant Atrial Lead Mobile Unit Assistant Other Atrial Lead Model # Atrial Lead Serial # Atrial Lead Implant Date RV Lead Mobile Unit Assistant Medtronic RV Lead Mobile Unit Assistant Other RV Lead Model # 4076-58cm RV Lead Serial # [id number] RV Lead Implant Date 11/07/2011 LV Lead Mobile Unit Assistant LV Lead Mobile Unit Assistant Other LV Lead Model # LV Lead Serial # LV Lead Implant Date Other Implant Info Pacemaker Dependant No Generator Investigational No Atrial Lead Investigational RV Lead Investigational No LV Lead Investigational Device Type VVI-PM Wireless Generator No Date of Last Programming 01/02/2014 Next Programming Check Due Date of Last 01/18/2014 - Via [employer] Express Interrogation Device Mode VVIR Lower Rate Limit 60 Upper Rate Limit Sensor Rate Limit 130 Pace AV Delay Sense AV Delay Mode Switch (bpm) High A Rate Detect High V Rate Detect Mode Switch Status N/A Date of Last ICM Evaluation Next ICM Check Due HF Patient No Date of Last Remote Check 01/18/2014 - Via [employer] Next Remote Check Due Enrollment Date Date of baseline remote transmission AT/AF Daily [place] Hours Average Vent Rate during AT/AF #BPM Average Vent Rate During AT/AF #Hours Remote Monitoring? No Daily [place] Threshld Alert? Average Venticular Rate AT/AF On/Off VF Detection/Therapy Off Specimen Performing Laboratory OTHER OUTSIDE LAB Narrative [facility] PACU [facility] Express received and reviewed. See attached for details. Medtronic single chamber pacemaker interrogation.Device function appears normal. No alerts, no resets.Prior check was 10/10/16. Battery 1.5-4y left, avg 2.5y Presenting EGM shows WELLNESS PROGRAM ADMINISTRATOR 66bpm with some VS intrinsic competition, AFib. Events noted: Ventricular:none Report called to jacobo Eric RN. Route to RENALDO Donis EP. [10/24/2016 12:46:22 PM - ANUP CARLOS] * POC BLOOD GAS ARTERIAL (10/24/2016 12:07 PM) Component Value Ref Range PH-ART-POC 7.48 (H) 7.35 - 7.45 ZLT1-WEM-TUD 57 (H) 35 - 45 MMHG PO2-ART-POC 311 (H) 80 - 100 MMHG Base Ex-ART-POC 19.0 MMOL/L O2 Sat-ART-POC 100.0 (H) 95 - 99 % Uzvlgotuzra-KLC-KYF 42.3 (H) 21 - 28 MMOL/L Specimen Performing Laboratory MAIN LAB [address] [place] [address] * NM LYMPH NODE INJ RADIOTRACER (10/24/2016 [...] MG/DL Specimen Performing Laboratory MAIN LAB [address] [place] [address] * BLOOD GASES, ARTERIAL (10/24/2016 11:10 AM) Component Value Ref Range pH-Arterial 7.40 7.35 - 7.45 pCO2-Arterial 60 (H) 35 - 45 MMHG pO2-Arterial 273 (H) 80 - 100 MMHG Base Excess-Arterial 10.4 MMOL/L O2 Sat-Arterial 99.9 (H) 95 - 99 % Drdjdhfuotx-LOF-Gfg 34.2 (H) 21 - 28 MMOL/L Specimen Performing Laboratory Blood, arterial - Blood [facility] MAIN LAB [address] [place] [address] * SURGICAL PATHOLOGY (10/24/2016 9:40 AM) Component Value Ref Range PATHOLOGY REPORT [facility] [email or web address] Radhika Rankin MD, PhD, Director of Anatomic Pathology Department of Pathology and Laboratory Medicine [address] [place] [id number] Surgical Pathology Office: [phone] SURGICAL PATHOLOGY REPORT NAME: NI ROSA SURG PATH #: [id number] MR #: [id number] SPECIMEN CLASS: SR BILLING #: [id number] ALT ID #: LOCATION: [facility] DATE OF PROCEDURE: 10/24/2016 AGE: 80 SEX: [...] 1 cm from all margins Histologic Grade (Bath Histologic Score): II/III Tubule Formation: 3 Nuclear Grade: 2 Mitotic Count (40x objective): 2 Total Ashley Score: 7/9 Ductal Carcinoma In-situ (DCIS): Present Extensive intraductal component (>25%): Absent DCIS within and/or adjacent to invasive carcinoma: Yes DCIS separate from invasive carcinoma: No Lobular Carcinoma In-situ (LCIS): Absent Lymph-Vascular Invasion: Present Nipple Involvement: Absent Skin Involvement: Absent Lymph Node Sampling: Shock lymph node(s) only Total number of involved nodes/total nodes found: 0/3 Prognostic markers: Ordered. See Tumor Prognostic Marker addendum in Results Review. Time between tumor removal and placement into formalin < 1 hour: Yes Fixation Time between 6-72 hours: Yes Pathologic Staging: [id number]/a The pathologic stage assigned here should be [...] is inked black Axillary dissection attached: No Snapper On sections of the specimen are submitted as follows: D1 Snapper On sections of the upper outer quadrant. D2 Snapper On sections of the lower outer quadrant. D3 Snapper On sections of the lower inner quadrant. D4 Snapper On sections of the upper inner quadrant. D5 Snapper On section of skin closest to the lesion. D6-D7 The entire nipple, serially sectioned. D8 Deep margin closest to tumor. D9 Uninvolved section lateral to tumor. E32-S75Zccgpftzolwoic section of tumor lateral to medial. D14 [...] serially sectioned to reveal no gross abnormalities. Snapper On sections are submitted in cassettes E1-E3. (oh) ksw/10/24/2016 Intraoperative Consultation: A1FS, lymph node, "left [...] of Pathology and Laboratory Medicine of the [facility] ([employer]) in compliance [...] of Pathology and Laboratory Medicine of the [facility]. It has not been cleared or approved by the FDA. The FDA has determined that such clearance or approval is not necessary. Specimen Performing Laboratory [facility] LAB RESULTS * POTASSIUM, BG (10/24/2016 8:30 AM) Component Value Ref Range Potassium 3.1 (L) 3.5 - 5.1 MMOL/L Specimen Performing Laboratory Blood MAIN LAB [address] [place] [address] * SODIUM,BG (10/24/2016 8:30 AM) Component Value Ref Range Sodium 128 (L) 137 - 147 MMOL/L Specimen Performing Laboratory Blood MAIN LAB [address] [place] [address] * IONIZED CALCIUM,BG (10/24/2016 8:30 AM) Component Value Ref Range Ionized Calcium 1.10 1.0 - 1.3 MMOL/L Specimen Performing Laboratory Blood MAIN LAB [address] [place] [address] * GLUCOSE,BG (10/24/2016 8:30 AM) Component Value Ref Range Glucose 104 (H) 70 - 100 MG/DL Specimen Performing Laboratory Blood MAIN LAB [address] [place] [address] * BLOOD GASES, ARTERIAL (10/24/2016 8:30 AM) Component Value Ref Range pH-Arterial 7.50 (H) 7.35 - 7.45 pCO2-Arterial 47 (H)Comment: CHECKED 35 - 45 MMHG pO2-Arterial 70 (L)Comment: CHECKED 80 - 100 MMHG Base Excess-Arterial 11.4 MMOL/L O2 Sat-Arterial 95.0 95 - 99 % Nqpkdgbnjjk-DHW-Ezq 35.1 (H) 21 - 28 MMOL/L Specimen Performing Laboratory Blood, arterial - Blood [facility] MAIN LAB [address] [place] [address] * HEMOGLOBIN & HEMATOCRIT, BG (10/24/2016 8:30 AM) Component Value Ref Range Hemoglobin BG 11.1 (L) 12.0 - 15.0 GM/DL Hematocrit BG 34.4 (L) 36 - 45 % Specimen Performing Laboratory Blood MAIN LAB [address] [place] [address] in this encounter Visit Diagnoses Diagnosis Malignant [...]
--- OUTSIDE RECORDS SUMMARY | 2016-11-23 02:19 | XMS REPORT | Encounter Summary ---
Author Author [facility] Organization [facility] Address Unknown Phone Unavailable Care Team Providers Care Digester Cook Name Role Phone PCP Unavailable Encounter Details Date Type Department Care Team Description 09/22/2016 Documentation [facility] Karissa Morleya [facility] Center - South Exam [address] [place] [address] Social History Tobacco Use Types Packs/Day Years [...] services. 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 Pt is a resident of [place] in [place], [place]. Pt using a wheelchair. Per pt's [...]
--- OUTSIDE RECORDS SUMMARY | 2016-11-23 02:19 | XMS REPORT | Encounter Summary ---
Author Author [facility] Organization [facility] Address Unknown Phone Unavailable Care Team Providers Care Executive Vice President Business Development Name Role Phone PCP Unavailable Encounter Details Date Type Department Care Team Description 09/22/[address] [facility] Brandon Heart DO Malignant neoplasm of [facility] Exam [address] left female breast, [address] [place] 2003 [place] [address] [place] [address] breast (Primary Dx) [phone] Social History Tobacco Use Types Packs/Day Years [...]
--- OUTSIDE RECORDS SUMMARY | 2016-11-23 02:19 | XMS REPORT | Encounter Summary ---
Author Author [facility] Organization [facility] Address Unknown Phone Unavailable Care Team Providers Care Feed Inspection Supervisor Name Role Phone PCP Unavailable Encounter Details Date Type Department Care Team Description 09/22/2016 [facility] Brandon Heart DO Encounter [facility] [address] [place] [address] [place] [address] [place] [address] [phone] Social History Tobacco Use Types Packs/Day Years [...] Take 1 Tab by mouth twice 10/25/2016 C,F-Ag-pdrdg-lutein-zeaxa daily. n (PRESERVISION AREDS 2) [phone] zr-kcdz-nd-mg cap as of this encounter Plan of Treatment Not on fileas of this encounter Results * US BREAST TARGET LT (09/22/2016 10:30 AM) Specimen Performing Laboratory [facility] RAD RESULTS Impressions ACR BI-RADS Assessments: BIRAD 5-Highly suggestive of malignancy RECOMMENDATION: Sono guided biopsy of the left breast. Narrative Malignant neoplasm of left female breast, unspecified site of breast [id number] US BREAST TARGET LT: LEFT BREAST - SEPTEMBER 22, 2016 - Standard views. Technologist: Miriam Martinez, staff physician Left breast ultrasound was performed. Imaging of [...] signed and approved by: George Winters M.D. [id number] Procedure Note Interface, Radiant Results - 09/22/2016 10:43 AM CDT Malignant neoplasm of left female breast, unspecified site of breast [id number] US BREAST TARGET LT: LEFT BREAST - SEPTEMBER 22, 2016 - Standard views. Technologist: Miriam Martinez, staff physician Left breast ultrasound was performed. Imaging of [...] signed and approved by: George Winters M.D. [id number] IMPRESSION ACR BI-RADS Assessments: BIRAD 5-Highly suggestive of malignancy RECOMMENDATION: Sono guided biopsy of the left breast. in this encounter Visit Diagnoses Diagnosis Malignant neoplasm of left female breast, unspecified site of breast in this encounter
--- OUTSIDE RECORDS SUMMARY | 2016-11-23 02:19 | XMS REPORT | Encounter Summary ---
Author Author [facility] Organization [facility] Address Unknown Phone Unavailable Care Team Providers Care Director Security Management Name Role Phone PCP Unavailable Reason for Visit * Auth/Cert Status Reason Specialty Diagnoses / Referred By Referred To Procedures Contact Contact Diagnoses Malignant neoplasm of right female breast (HCC) U NKNOWN Breast cancer of upper-outer quadrant of left female breast (HCC) P rocedures TX MASTECTOMY SIMPLE COMPLETE TX MASTECTOMY SIMPLE COMPLETE TX AXILLARY LYMPHADENECTOMY COMPLETE TX INTRAOP SENTINEL LYMPH NODE ID W/DYE INJECTION TX BX/EXC LYMPH NODE OPEN SUPERFICIAL TX BX/EXC LYMPH NODE OPEN DEEP AXILLARY NODE Left Total Mastectomy, [place] Lymph Node Biopsy Possible Axillary Lymph Node Dissection Encounter Details Date Type Department Care Team Description 10/24/2016 Anesthesia Main Operating Room Farheen Hendrickson MD [address] [facility] [address] [place] [address] [place] [address] [phone] Social History Tobacco Use Types Packs/Day Years [...]
--- OUTSIDE RECORDS SUMMARY | 2016-11-23 02:19 | XMS REPORT | Encounter Summary ---
Author Author [facility] Organization [facility] Address Unknown Phone Unavailable Care Team Providers Care Grounds Restoration Specialist Name Role Phone PCP Unavailable Reason for Visit * Reason Comments Heme/Onc Care Encounter Details Date Type Department Care Team Description 09/22/2016 [facility] [place] [address] (Primary Dx) [address] [place] [address] [place] [address] [place] [address] [phone] Sherley Yuen, PAUL Social History Tobacco Use [...] No BASELINE DIAGNOSTIC ASSESSMENT Diagnosis performed at [facility]? No Diagnostic Procedure: Core Biopsy: Ultrasound guided Surgery performed at [facility]? Yes Surgical Procedure: Axillary Node Dissection, SLN [...] or the assessment process. [place], discussed with family sharing of this information with the [place] staff. Risk factors for the development of [...]
--- OUTSIDE RECORDS SUMMARY | 2016-11-23 02:19 | XMS REPORT | Encounter Summary ---
Author Author [facility] Organization [facility] Address Unknown Phone Unavailable Care Team Providers Care Production Editor Name Role Phone PCP Unavailable Encounter Details Date Type Department Care Team Description 09/22/2016 Ancillary [facility] Brandon Heart DO Malignant neoplasm of [facility] Exam [address] left female breast, [address] [place] [address] [place] [address] [place] [address] breast (Primary Dx) [phone] Social History Tobacco Use Types Packs/Day Years [...] left female breast, unspecified site of breast [id number] US BREAST TARGET LT: LEFT BREAST - SEPTEMBER 22, 2016 - Standard views. Technologist: Miriam Martinez, full time staff interpreter Left breast ultrasound was performed. Imaging of [...] signed and approved by: George Winters M.D. [id number] Procedure Note Interface, Radiant Results - 09/22/2016 10:43 AM CDT Malignant neoplasm of left female breast, unspecified site of breast [id number] US BREAST TARGET LT: LEFT BREAST - SEPTEMBER 22, 2016 - Standard views. Technologist: Miriam Martinez, full time staff interpreter Left breast ultrasound was performed. Imaging of [...] signed and approved by: George Winters M.D. [id number] IMPRESSION ACR BI-RADS Assessments: BIRAD 5-Highly suggestive of malignancy RECOMMENDATION: Sono guided biopsy of the left breast. in this encounter Visit Diagnoses Diagnosis Malignant neoplasm of left female breast, unspecified site of breast - Primary in this encounter
--- OUTSIDE RECORDS SUMMARY | 2016-11-23 02:19 | XMS REPORT | Encounter Summary ---
Author Author [facility] Organization [facility] Address Unknown Phone Unavailable Care Team Providers Care Roller Machine Operator Name Role Phone PCP Unavailable Encounter Details Date Type Department Care Team Description 09/22/2016 [facility] OAnn Marie Ram MD Encounter Cancer Center - [facility] Lab [address] [facility] [address] [place] [id number] [place] [phone] Social History Tobacco Use Types Packs/Day Years [...] Take 1 Tab by mouth twice 10/25/2016 C,J-Rb-igdle-lutein-zeaxa daily. n (PRESERVISION AREDS 2) [phone] sl-weoz-el-mg cap as of this encounter Plan of [...] Performing Laboratory Blood [facility] MAIN LAB [address] [place] [address] * CBC AND DIFF (09/22/2016 3:42 PM) [...] - 0.20 K/UL Specimen Performing Laboratory Blood [facility] [address] [address] in this encounter Visit Diagnoses Diagnosis Pre-op testing Preoperative examination, unspecified in this encounter
--- OUTSIDE RECORDS SUMMARY | 2016-11-23 02:19 | XMS REPORT | Encounter Summary ---
Author Author [facility] Organization [facility] Address Unknown Phone Unavailable Care Team Providers Care Telephone Surveyor Name Role Phone PCP Unavailable Reason for Referral * Consult, Test & Treat (Urgent) Status Reason Specialty Diagnoses / Referred By Referred To Procedures Contact Contact New Request Specialty Cardiology Diagnoses Brandon Heart Marji, Bashar, MD Services Malignant DO [address] Required neoplasm of left [address] [place], [place] breast [place] [address] [address] female, estrogen [place] 2004 Phone: receptor [place], [place] [phone] positive, [address] unspecified site Phone: of breast [phone] Pre-operative Fax: clearance [phone] Encounter Details Date Type Department Care Team Description 10/02/2016 Orders Only Breast Surgery Center at Brandon Heart DO Malignant neoplasm of [place] [address] left breast in female, [address] [place] 2002 estrogen receptor [address] [place] [address] [place], [place] [address] site of breast (Primary [phone] Dx);Pre-operative clearance Social History Tobacco Use Types [...] and transportation has been [place] [facility]. Records faxed to Dr. Wilde with referral [...]
--- OUTSIDE RECORDS SUMMARY | 2016-11-23 02:20 | XMS REPORT | Encounter Summary ---
Author Author [facility] Organization [facility] Address Unknown Phone Unavailable Care Team Providers Care Director Software Development Name Role Phone PCP Unavailable Reason for Visit * Reason Comments Heme/Onc Care * Consult, Test & Treat (Routine) Status Reason Specialty Diagnoses / Referred By Referred To Procedures Contact Contact New Request Oncology Diagnoses Daniel Day Anne, MD PATCHER BOWLING BALL/MICHAEL/Amador Zeeshan Ni III, [address] IDC/Self MD Darshan Cardona Referral/[facility] [address] [facility] [address] e/MANSOOR: ER/[place] [address] P [address] Phone: [employer] [place] OFFICE/OUTPT [phone] VISIT,BREANNE WILKINSON Mark Fax: NEW PATIENT [phone] Encounter Details Date Type Department Care Team Description 09/22/2016 Office Visit [facility] Ann Marie Sanchez MD Malignant neoplasm of Cancer Center - [facility] [address] left female breast, Exam [address]7 unspecified site of [address] [place] [address] breast (Primary Dx) [place] [address] [phone] Social History Tobacco Use Types Packs/Day Years [...] prior to diagnosis. Bilateral diagnostic mammogram 08/19/16 ([facility] ) showed a highly suspicious mass in the left breast. Left breast US 08/19/16 ( [facility]) showed the mass to be 2.7cm with and enlarged left axillary lymph node. 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 ER 100, FL 60, Her2 1+ by IHC, with a Ki-67 of 25%. Ni Roblero currently resides in a long-term care facility in [place], [place]. 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 Per son report previous lumpectomy/biopsy that was benign. She presents today, accompanied by her son, to discuss treatment plan. She arrived via w/c. She has ecchymosis left maxilla facial area. Son states Ni fell at the group home. Ni continued hormone replacement therapy until 2 years ago. Surgeon: Dr. Heart. PMH: Pacemaker Genetics: N/A TIMELINE: 08/19/2016 Bilateral Diagnostic Mammogram ([facility]ia [facility]) Upper outer left breast mass highly suspicious for breast cancer. There is skin thickening in the left breast as well. 08/19/2016 Left Breast Ultrasound ([facility]ia [facility]) 1. At 2:00 zone, there is a 2.7 cm mass. 2. Enlarged left axillary lymph node concerning for spread. (BI-RADS 5) 08/28/2016 Ultrasound-Guided Left Breast Biopsy ([facility]ia [facility] ) -Infiltrating ductal carcinoma. -ER 100%, FL 60%, Ki-67 25%, HER2/shoshana 1+ negative. Family [...] 31 Hormone Replacement Therapy: Yes Years: 44 ([id number]) Review of Systems Unable to perform ROS: [...] TABLET BY MOUTH DAILY AFTER BREAKFAST vit C,V-Jt-sfuwk-lutein-zeaxan (PRESERVISION AREDS 2) 162-300-04-1 mg-unit- mg-mg cap Take 1 Tab by [...] REPORT 09/15/2016 Final Diagnosis: A. Outside case [id number] (Date Collected: 08/28/2016) Breast, left, needle biopsy [...] tumor involves all biopsy cores. Histologic Grade ([place] Histologic Score): II/III Tubule Formation: 3 Nuclear Grade: 2 Mitotic Count (40x objective): 2 Total Ashley Score: 7/9 DCIS: Present Extent of DCIS (%): <5% Lymph-Vascular Invasion: Not identified Microcalcifications: Absent Tumor Necrosis: Focal Lymph Node Sampling: Not performed Prognostic markers: Per outside slides and report as following: ER: 100% FL: 60% Her2: 1+ (negative) Ki-67: 25% Time [...] Clinical stage cT2 N1 MX. ER 100, FL 60 , HER2 negative (1+ by IHC) [...] disease. Given the favorable features including strong ER/FL positivity and negative HER2 status we have [...]
--- OUTSIDE RECORDS SUMMARY | 2016-11-23 02:20 | XMS REPORT | Encounter Summary ---
Author Author [facility] Organization [facility] Address Unknown Phone Unavailable Care Team Providers Care Boat Carpenter Mechanic Name Role Phone PCP Unavailable Encounter Details Date Type Department Care Team Description 09/22/2016 [facility] Brandon Heart DO Canceled (Error) Encounter [facility] [address] [place] [address] [place] [address] [phone] Social History Tobacco Use Types Packs/Day Years [...] Take 1 Tab by mouth twice 10/25/2016 C,E-An-germi-lutein-zeaxa daily. n (PRESERVISION ARED[place] 2) 992-879-75-1 kx-cgzh-cq-mg cap as of this encounter Plan of Treatment Not on fileas of this encounter Visit Diagnoses Diagnosis Malignant neoplasm of left female breast, unspecified site of breast in this encounter
--- OUTSIDE RECORDS SUMMARY | 2016-11-23 02:20 | XMS REPORT | Encounter Summary ---
Author Author [facility] Organization [facility] Address Unknown Phone Unavailable Care Team Providers Care Rn Radiology Name Role Phone PCP Unavailable Reason for Visit * Reason Comments Navigation Assessment Encounter Details Date Type Department Care Team Description 09/17/2016 Telephone [facility] Brandon Heart DO Navigation Assessment Cancer Center - Exam [address] [place] [address] [place] [address] [phone] Social History Tobacco Use Types Packs/Day Years Used Date Former Smoker Cigarettes 2 20 Quit: 04/06/1992 Smokeless Tobacco: Never Used Alcohol Use Drinks/Week oz/Week Comments No Sex Assigned at Date Recorded Not on file as of this encounter Plan of Treatment Not on fileas of this encounter Visit Diagnoses Not on filein this encounter
--- OUTSIDE RECORDS SUMMARY | 2016-11-23 02:20 | XMS REPORT | Encounter Summary ---
Author Author [facility] Organization [facility] Address Unknown Phone Unavailable Care Team Providers Care Flight Test Data Acquisition Technician Name Role Phone PCP Unavailable Encounter Details Date Type Department Care Team Description 08/28/2016 Hospital [facility] Radiology [address] [place] [address] Social History Tobacco Use Types Packs/Day Years [...] Take 1 Tab by mouth twice 10/25/2016 C,C-En-wgkgj-lutein-zeaxa daily. n (PRESERVISION [facility] 2) 359-452-82-1 ip-nxyo-ue-mg cap as of this encounter Plan of Treatment Not on fileas of this encounter Results * US BREAST BIOPSY EXTERNAL IMAGING (08/28/2016) Narrative This order has been auto finalized and does not contain a result. in this encounter Visit Diagnoses Diagnosis Diagnosis unknown Other unknown and unspecified cause of morbidity or mortality in this encounter
--- OUTSIDE RECORDS SUMMARY | 2016-11-23 02:20 | XMS REPORT | Encounter Summary ---
Author Author [facility] Organization [facility] Address Unknown Phone Unavailable Care Team Providers Care Intelligence Senior Sergeant Name Role Phone PCP Unavailable Encounter Details Date Type Department Care Team Description 09/11/2016 [facility] Rad Outpatient, Radiologist Diagnosis unknown Orders [address] (Primary Dx) [place] [address] Social History Tobacco Use Types [...]
--- OUTSIDE RECORDS SUMMARY | 2016-11-23 02:20 | XMS REPORT | Encounter Summary ---
Author Author [facility] Organization [facility] Address Unknown Phone Unavailable Care Team Providers Care Attendant Honor Bar Name Role Phone PCP Unavailable Encounter Details Date Type Department Care Team Description 08/28/2016 Hospital [facility] Radiology [address] [place] [address] Social History Tobacco Use Types Packs/Day Years [...] Take 1 Tab by mouth twice 10/25/2016 C,Q-Nv-hzypo-lutein-zeaxa daily. n (PRESERVISION [facility]ED[place] 2) 053-694-06-1 yl-lygp-bo-mg cap as of this encounter Plan of Treatment Not on fileas of this encounter Results * MAMMO DIAG EXTERNAL IMAGING (08/28/2016 12:15 AM) Narrative This order has been auto finalized and does not contain a result. in this encounter Visit Diagnoses Diagnosis Diagnosis unknown Other unknown and unspecified cause of morbidity or mortality in this encounter
--- OUTSIDE RECORDS SUMMARY | 2016-11-23 02:20 | XMS REPORT | Encounter Summary ---
Author Author [facility] Organization [facility] Address Unknown Phone Unavailable Care Team Providers Care Military Education Coordinator Name Role Phone PCP Unavailable Encounter Details Date Type Department Care Team Description 09/08/2016 Orders Only [facility] Brandon Heart DO Malignant neoplasm of Cancer Center - [facility] Exam [address] left female breast, [address] [place] [address] [place] [address] breast (Primary Dx) [phone] Social History Tobacco Use Types Packs/Day Years [...]
--- OUTSIDE RECORDS SUMMARY | 2016-11-23 02:20 | XMS REPORT | Encounter Summary ---
Author Author [facility] Organization [facility] Address Unknown Phone Unavailable Care Team Providers Care Camera Storage Clerk Name Role Phone PCP Unavailable Reason for Referral * Radiology Services Status Reason Specialty Diagnoses / Referred By Referred To Procedures Contact Contact No Auth Needed Radiology Diagnoses [facility] [address] neoplasm of left [address] [place], [place] female breast [address] [address] (HCC) [place] [address] Phone: P [place], [place] [phone] [facility] [address] [place] LYMPH NODE Phone: INJ RADIOTRACER [phone] Reason for Visit * Reason Comments Heme/Onc Care * Consult, Test & Treat (Routine) Status Reason Specialty Diagnoses / Referred By Referred To Procedures Contact Contact New Request General Surgery / Diagnoses Self, Referral Jaylon Heart DO Breast Clinic / HAT MAKER/PJW/Left [address] Breast Center IDC/Self [address] Referral/[facility] [place], [place] e/[place]: ER/[place] [id number] P Phone: [facility] [phone] MD-NEW PATIENT Encounter Details Date Type Department Care Team Description 09/22/2016 Office Visit [facility] at [facility] Heart DO Pre -op testing (Primary [place] [address] Dx);[place] [address] [place] [address] left female breast, [address] [place] [address] [place] [address] breast;Malignant neoplasm [phone] of upper-outer quadrant of left female breast [...] IMAGING: Mammogram: -- Bilateral diagnostic mammogram 08/19/16 ([place], [place]) revealed heterogeneously dense breast tissue. 2 [...] nodes. Ultrasound: -- Left breast ultrasound 08/19/16 ([place], [place]) revealed an irregular 2.7 cm mass [...] TABLET BY MOUTH DAILY AFTER BREAKFAST vit C,U-Pn-ruawk-lutein-zeaxan (PRESERVISION [facility] 2) 019-752-07-1 mg-unit- mg-mg cap Take 1 Tab by [...] to surgery. Ms. Payne is in a jail two hours from [place] and does not have good transportation. We [...] impression and plan outlined by the Physician Ticket Marker. The patient presents with (HPI) a new [...] night before surgery. Also informed that a delivery route driver will need to accompany pt due [...] Specimen Performing Laboratory Blood MAIN LAB [address] [place] [address] * CBC AND DIFF (09/22/2016 3:42 PM) [...] - 0.20 K/UL Specimen Performing Laboratory Blood [facility] [address] [place] [phone] in this encounter Visit Diagnoses Diagnosis Pre-op testing - Primary Preoperative examination, unspecified Malignant neoplasm of left female breast, unspecified site of breast Malignant neoplasm of upper-outer quadrant of left female breast (HCC) Malignant neoplasm of upper-outer quadrant of female breast in this encounter
--- OUTSIDE RECORDS SUMMARY | 2016-11-23 02:20 | XMS REPORT | Encounter Summary ---
Author Author [facility] Organization [facility] Address Unknown Phone Unavailable Care Team Providers Care Incident Response Engineer Name Role Phone PCP Unavailable Encounter Details Date Type Department Care Team Description 09/12/2016 [facility] Jaylon Heart DO Malignant neoplasm of Encounter [address] [place] [address] [address] unspecified [place] [address] ([facility] [phone] Social History Tobacco Use Types Packs/Day Years [...] Take 1 Tab by mouth twice 10/25/2016 C,D-Ul-rzjdv-lutein-zeaxa daily. n (PRESERVISION [facility] 2) [phone] oc-eyue-hx-mg cap as of this encounter Plan of Treatment Not on fileas of this encounter Results * PATHOLOGY REPORTS FROM OUTSIDE SCAN (09/25/2016 7:26 AM) Narrative Ordered by an unspecified provider. * OUTSIDE PATHOLOGY CONSULT (09/12/2016 2:22 PM) Component Value Ref Range PATHOLOGY REPORT [facility] [email or web address] Radhika Rankin MD, PhD, Director of Anatomic Pathology Department of Pathology and Laboratory Medicine [address] [place] [id number] Surgical Pathology Office: [phone] PATHOLOGY CONSULTATION NAME: NI PAYNE SURG PATH #: [id number] MR #: [id number] ALT ID #: LOCATION: [facility] DATE OF PROCEDURE: 09/12/2016 AGE: 80 SEX: F DATE RECEIVED: 09/12/2016 : 1935 TIME RECEIVED: 14:22 PHYSICIAN: JAYLON HEART DO DATE OF REPORT: 09/15/2016 COPY TO: DATE OF PRINTIN09/15/2016 ################################################## ###################### Final Diagnosis: A. Outside case [id number] (Date Collected: 08/28/2016) Breast, left, needle biopsy [...] 2 Mitotic Count (40x objective): 2 Total Cromona Score: 7/9 DCIS: Present Extent of DCIS (%): <5% Lymph-Vascular Invasion: Not identified Microcalcifications: Absent Tumor Necrosis: Focal Lymph Node Sampling: Not performed Prognostic markers: Per outside slides and report as following: ER: 100% SD: 60% Her2: 1+ (negative) Ki-67: 25% Time [...] ###################### Material Received: A: Outside Slides x5 [id number], [facility] [address] [place] [address] History: 80-year-old female with a clinical history of breast cancer. Gross Description: A. Received are five (5) outside slides labeled "[id number]", and a properly identified surgical pathology report from [facility], [address] [place], [place] [address]Ygwlv: [phone]; . paj/09/12/2016 If immunohistochemical stains and/or in situ hybridization are cited in this report, the performance characteristics were determined by the Department of Pathology and Laboratory Medicine of the [facility] ([employer]) in compliance with CLIA'88 regulations. Some of these tests rely on the use of "analyte specific reagents" and are subject to specific labeling requirements by the FDA. Known positive and negative control tissues demonstrate appropriate staining. This testing was developed by the Department of Pathology and Laboratory Medicine of the [facility]. It has not been cleared or [...]
[2016-11-23 04:00] VITALS: BP 110/67
[2016-11-23 05:31] LABS: RED BLOOD COUNT 3.25 10^6/uL (4.35-5.85); RED CELL DISTRIBUTION WIDTH 13.5 % (10.0-14.5)
[2016-11-23 05:57] LABS: CALCIUM 8.3 MG/DL (8.5-10.1); CREATININE SERUM 1.03 MG/DL (0.60-1.30); POTASSIUM 3.1 MMOL/L (3.6-5.0)
[2016-11-23] MEDS: KCL 20 MEQ TAB (K-DUR) PO SCH ×2 (06:12→11:51)
[2016-11-23 07:53] VITALS: BP 93/58
[2016-11-23] MEDS ORDERED: ACETAMINOPHEN 325 MG TABLET/CAPLET (TYLENOL) PO NR (10:30)
[2016-11-23] MEDS ORDERED: POTA-53 PO (11:44)
--- NOTE | 2016-11-23 11:51 | Discharge Summary-Hospitalist ---
Diagnosis/Chief Complaint Date of Admission Nov 22, 2016 at 13:16 Date of Discharge November 23 2016 Discharge Date: Nov 23, 2016 Discharge Time: 13:00 Admission Diagnosis 1.dehydration 2. Hypokalemia 3. Hyponatremia 4. 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 fib and congestive heart failure secondary to systolic dysfunction with an ejection fraction of 45 percent Discharge Summary Procedures CT cervical spine and head Consultations none Discharge Physical Examination Allergies: Coded Allergies: nut - unspecified (Verified Allergy, Unknown, 11/22/16) SEEDS, NUTS PER [place] RECORDS Vitals & I&Os Vital Signs Date Time Temp Pulse Resp B/P (MAP) Pulse Ox O2 Delivery O2 Flow Rate FiO2 11/23/16 07:53 99.1 72 22 93/58 92 Room Air General Appearance: Alert, Other (disoriented and agitated) HEENT: Other (oral mucosa dry) Respiratory: Clear to Auscultation Cardiovascular: Regular Rate Abdominal: Soft Psych/Mental Status: Other (confused somewhat combative) Hospital Course the patient was admitted for IV fluids and IV potassium replacement after x- rays showed that there were no fractures. The patient had originally been brought to the emergency room after falling. There was no evidence of infection that contributed to her increased falling. It was felt that this may be secondary to the hypokalemia. Her diuretics were held. At the time of discharge her electrolytes are improved with potassium 3.1. The patient will be taken home by her family. Potassium will be started in her medications with the weekly Chem-7 to be sent to Dr. Day. Labs (last 24 hrs) Laboratory Tests 11/23/16 05:00: White Blood Count 4.0L, Red Blood Count 3.25L, Hemoglobin 10.2L, Hematocrit 30L , Mean Corpuscular Volume 93, Mean Corpuscular Hemoglobin 31, Mean Corpuscular Hemoglobin Concent 34, Red Cell Distribution Width 13.5, Platelet Count 160, Mean Platelet Volume 10.0, Sodium Level 132L, Potassium Level 3.1L, Chloride Level 92L, Carbon Dioxide Level 26, Anion Gap 14, Blood Urea Nitrogen 13, Creatinine 1.03, Estimat Glomerular Filtration Rate 52, BUN/Creatinine Ratio 13 , Glucose Level 115H, Calcium Level 8.3L Pending Labs Laboratory Tests 11/23/16 05:00: White Blood Count 4.0, Red Blood Count 3.25, Hemoglobin 10.2, Hematocrit 30, Mean Corpuscular Volume 93, Mean Corpuscular Hemoglobin 31, Mean Corpuscular Hemoglobin Concent 34, Red Cell Distribution Width 13.5, Platelet Count 160, Mean Platelet Volume 10.0, Sodium Level 132, Potassium Level 3.1, Chloride Level 92, Carbon Dioxide Level 26, Anion Gap 14, Blood Urea Nitrogen 13, Creatinine 1.03, Estimat Glomerular Filtration Rate 52, BUN/Creatinine Ratio 13 , Glucose Level 115, Calcium Level 8.3 Discharge Home Medications: Active Scripts Active K-Tab ER (Potassium Chloride) 20 Meq Tablet.er 20 Meq PO DAILY 30 Days Reported Colace (Docusate Sodium) 100 Mg Capsule 100 Mg PO BID Bisoprolol Fumarate 5 Mg Tablet 5 Mg PO BID HOLD IF PULSE <60 OR SBP <100 Aspir 81 (Aspirin) 81 Mg Tablet. 81 Mg PO BID Ocuvite Eye + Multi Tablet (Mv-Mn/FA/Vit K/Lycop/Lut/Zeaxa) 1 Each Tablet 1 Each PO DAILY Metolazone 2.5 Mg Tablet 2.5 Mg PO THUWEDFRI TAKES ON MON, WED, FRI Melatonin 3 Mg Tablet 3 Mg PO HS Magnesium (Magnesium Oxide) 500 Mg Capsule 500 Mg PO DAILY Lutein 20 Mg Capsule 20 Mg PO DAILY Lasix (Furosemide) 80 Mg Tablet 80 Mg PO DAILY Guaifenesin ER (Guaifenesin) 600 Mg Tab.er.12h 600 Mg PO HS Glucosamine (Glucosamine Sulfate 2Kcl) 1,000 Mg Tablet 1 Tab PO DAILY Celexa (Citalopram Hydrobromide) 20 Mg Tablet 20 Mg PO DAILY Simvastatin 20 Mg Tablet 20 Mg PO DAILY TAKE W/ EVENING MEAL Fish Oil 1,000 Mg Cap 1,000 Mg PO BID Asacol Hd (Mesalamine) 800 Mg Tablet.dr 800 Mg PO TID Condition at discharge stable Instructions to patient/family Please see electonic discharge instructions given to patient. Clinical Quality Measures DVT/VTE Risk/Contraindication: Risk Factor Score Per Nursin RFS Level Per Nursing on Admit: 4+=Very High Copy Copies To 1: MINERVA DAY KATHLEEN M MD Nov 23, 2016 11:51
[2016-11-23] MEDS ORDERED: MESALAMINE 800 MG PO SCH (13:00)
[2016-11-23] MEDS ORDERED: SIMvastatin 20 MG (ZOCOR) TAB PO SCH (17:00)
[2016-11-23] MEDS ORDERED: NON-FORMULARY MEDICATION 1 EA EA (Bisoprolol Fumarate 5 MG) PO SCH (21:00)
[2016-11-23] MEDS ORDERED: ASPIRIN E.C. 81 MG (ECOTRIN) TAB PO SCH (21:00)
[2016-11-23] MEDS ORDERED: DOCUSATE SODIUM 100 MG (COLACE) CAP PO SCH (21:00)
[2016-11-23] MEDS ORDERED: MELATONIN 3 MG TABLET PO SCH (21:00)
== END 2016-11-23 11:37 ==
LOC: EDUNIT# 10:10 → ER 10:11 → UNDOADMOB 13:16 → 4TH 13:16 → INTOOBSV 13:16 → 4TH 13:59 → UNDODISOB 11-23 12:10
PROVIDERS: ADMIT Internal Medicine; ATTEND Internal Medicine
DX: E86.0 Dehydration (principal); E87.6 Hypokalemia; E87.1 Hypo-osmolality and hyponatremia; I51.7 Cardiomegaly; I48.2 Chronic atrial fibrillation; I11.0 Hypertensive heart disease with heart failure; I50.20 Unspecified systolic (congestive) heart failure; E78.00 Pure hypercholesterolemia, unspecified; M47.812 Spondylosis without myelopathy or radiculopathy, cervical region; F03.90 Unspecified dementia, unspecified severity, without behavioral disturbance, psychotic disturbance, mood disturbance, and anxiety; Z79.82 Long term (current) use of aspirin; Z79.899 Other long term (current) drug therapy; Z87.891 Personal history of nicotine dependence; Z95.0 Presence of cardiac pacemaker; Z90.710 Acquired absence of both cervix and uterus; Z86.73 Personal history of transient ischemic attack (TIA), and cerebral infarction without residual deficits; Z85.3 Personal history of malignant neoplasm of breast
CPT/HCPCS: 36415; 70450; 71010; 72125; 80048; 80053; 81000; 83735; 85025; 85027; 86141; 96361; 96374; G0378